=== PATIENT | male | born 1960 | race Caucasian/White ===

== ENCOUNTER 2020-05-23 23:21 | Inpatient (IN) | payer BC, OTHER, SELFPAY ==
--- OUTSIDE RECORDS SUMMARY | 2020-05-23 23:25 | XMS REPORT | Summary of Care ---
:1960 Author Organization [facility] Address [address] [place] [address] Care Team Providers Name Role Phone Te Joseph MD Primary Care Provider Reason for Visit Reason Comments LAB Encounter Details Date Type Department Care Team Description 04/14/2020 Relay Record Clerk Visit [facility] Delia Blackburn MD [address] [facility] [address] [place] [address] RUQ pain; Professional Office 2, Adc Lab Chronic kidney disease, unspecified CKD stage Building Phlebotomy Lab Professional Office Building [address] [place] [address] , [address] [place] [address] Allergies Active Allergy Reactions Severity Noted Date Comments Codeine Rash 10/13/2017 Diazepam Anxiety 03/14/2020 Penicillins Rash, Anaphylaxis High 10/13/2017 Sulfa (Sulfonamide Antibiotics) Rash 8 Sulfur Hives High 03/16/2020 documented as of this encounter (statuses as of 04/14/2020) Medications Medication Sig Dispensed Refills Start Date End Date Status gemfibrozil 600 mg Take 600 mg by 0 Active tablet mouth 2 (two) times daily before breakfast and dinner. pioglitazone 45 mg Take 45 mg by 0 Active tablet mouth daily. phentermine 37.5 mg Take 37.5 mg by 0 Active capsule mouth every morning. LEVOTHYROXINE SODIUM Take 225 mcg by 0 Active (SYNTHROID ORAL) mouth daily. traMADOL 50 mg tablet Take 50 mg by 0 Active mouth every 8 (eight) hours as needed for Pain (scale 1-3), Pain (scale 4-6) or Pain (scale 7-10). glyBURIDE 5 mg tablet Take 10 mg by 0 Active mouth daily with breakfast. aspirin 81 mg Take 81 mg by 0 Ac tive chewable tablet mouth daily. tamsulosin HCl Take 0.4 mg by 0 Active (TAMSULOSIN ORAL) mouth. montelukast 10 mg Take 10 mg by 0 Active tablet mouth. ergocalciferol, Take by mouth. 0 Active vitamin D2, (VITAMIN D ORAL) calcitrioL 0.25 mcg Take 0.25 mcg by 0 Active capsule mouth daily. SODIUM BICARBONATE Take by mouth. 0 Active ORAL nitroglycerin Take by mouth. 0 Active (NITRO-TIME ORAL) quinapril HCl Take by mouth. 0 Active (QUINAPRIL ORAL) Calcium Carbonate 260 Take 648 mg by 0 03/23/2020 Active mg calcium (648 mg) mouth 3 (three) Tab times daily. cholecalciferol, Take 1,000 Units 0 03/24/202004/23 Active vitamin D3, 25 mcg by mouth daily. (1,000 unit) tablet ergocalciferol, Take 50,000 Units 0 03/23/2020 Active vitamin d2, 1,250 mcg by mouth 2 (two) (50,000 unit) capsule times per week. atenoloL 25 mg tablet Take 25 mg by 0 Active mouth daily. documented as of this encounter (statuses as of 04/14/2020) Active Problems Problem Noted Date History of [place] (myocardial infarction) 10/14/2017 Type 2 diabetes mellitus without complication 10/15/19 18 HTN (hypertension) 10/14/2017 Chest pain 10/14/2017 Cellulitis of left leg 10/13/2017 Morbid obesity with body mass index of 50 or higher Cellulitis 10/13/2017 documented as of this encounter (statuses as of 04/14/2020) Social History Tobacco Use Types Packs/Day Years Used Date Former Smoker Smokeless Tobacco: Never Used Alcohol Use Drinks/Week oz/Week Comments Not Currently Sex Assigned at Date Recorded Not on file COVID-19 Exposure Response Date Recorded In the last month, have you been in contact with No / Unsure 04/14/2020 9:14 AM 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 documented as of this encounter Last Filed Vital Signs Not on filedocumented in this encounter Nursing Notes Sonal Mccloud - 04/14/2020 2:00 PM CST Venipuncture collection performed by clean technique on the right anticubitus. Total of 1 attempts were made. Slight pressure and a bandage/dressing were applied to the site(s). The patient experiencedno complications. The following specimens were processed according to instructions and sent to [facility] laboratories per lab order on 04/14/20: LT BLUE SST 1 RED LAV 1 PPT DK GREEN (LiHep) DK GREEN (SodH) HURD DK BLUE (K2) DK BLUE (S) ACD Blood Culture NIPT/NTD documented in this encounter Plan of Treatment Date Type Specialty Care Team Description 04/21/2020 Appointment Radiology Kandi Blackburn MD [address] [facility] [address] [place] [address] [phone] Health Maintenance Due Date Last Done Comments HEPATITIS C (HCV) SCREEN 1960 EYE EXAM 08/22/1969 URINE MICROALBUMIN 08/22/1969 FOOT EXAM 08/22/1977 DTaP,Tdap,and Td Vaccines (1 08/22/1978 - Tdap) COLON CANCER SCREENING 08/22/2009 ANNUAL FIT/FOBT COLON CANCER SCREENING FIT 08/22/2009 DNA EVERY 3 YEARS COLON CANCER SCREENING 08/22/2009 SIGMOIDOSCOPY EVERY 5 YEARS COLONOSCOPY 08/22/2009 Colorectal Cancer Screening 08/22/2009 Zoster Recombinant Vaccine 08/22/2009 (SHINGRIX) (1 of 2) LUNG CANCER SCREEN: 08/22/2014 Recommended for age 55-80 with 30 + pack year history HgA1C 04/15/2018 10/13/2017 LDL-C 10/14/2018 10/14/2017 CREATININE (SERUM) 10/17/2018 10/17/2017, 10/16/2017, 10/14/2017, Additional history exists INFLUENZA VACCINE (#1) 2020 Depression Screening 04/14/2021 04/14/2020 PNEUMOCOCCAL 0-64 YEARS Aged Out No longe r eligible COMBINED SERIES based on patient 's age to complete this topic documented as of this encounter Results Not on filedocumented in this encounter Visit Diagnoses Diagnosis RUQ pain Abdominal pain, right upper quadrant Chronic kidney disease, unspecified CKD stage documented in this encounter documented as of this encounter
--- OUTSIDE RECORDS SUMMARY | 2020-05-23 23:26 | XMS REPORT | Summary of Care ---
:1960 Author Organization [facility] Address [address] [place] [address] Care Team Providers Name Role Phone Te Joseph MD Primary Care Provider Reason for Visit Reason Comments Results Encounter Details Date Type Department Care Team Description 04/15/2020 Telephone [facility] Urology- Tomasa Araujo, STOCKROOM ATTENDANT Results [place] [address] [facility] [address] [place] [address] [place] [address] [phone] Allergies Active Allergy Reactions Severity Noted Date Comments Codeine Rash 10/13/2017 Diazepam Anxiety 03/14/2020 Penicillins Rash, Anaphylaxis High 10/13/2017 Sulfa (Sulfonamide Antibiotics) Rash 8 Sulfur Hives High 03/16/2020 documented as of this encounter (statuses as of 04/15/2020) Medications Medication Sig Dispensed Refills Start Date [...] as of this encounter (statuses as of 04/15/2020) Active Problems Problem Noted Date History of [place] (myocardial infarction) 10/14/2017 Type 2 diabetes mellitus without complication 10/15/19 18 HTN (hypertension) 10/14/2017 Chest pain 10/14/2017 Cellulitis of left leg 10/13/2017 Morbid obesity with body mass index of 50 or higher Cellulitis 10/13/2017 documented as of this encounter (statuses as of 04/15/2020) Social History Tobacco Use Types Packs/Day Years Used Date Former Smoker Smokeless Tobacco: Never Used Alcohol Use Drinks/Week oz/Week Comments Not Currently Sex Assigned at Date Recorded Not on file COVID-19 Exposure Response Date Recorded In the last month, have you been in contact with No / Unsure 04/14/2020 9:14 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 documented as of this encounter Last Filed Vital Signs Not on filedocumented in this encounter Miscellaneous Notes Telephone Encounter - Guillermina Araujo FNP - 04/15/2020 1:[address] Blackburn's call. Explained K is elevated at 5.9 and she is recommending him to call PCP or go to the ER for evaluation. He denies CP, weakness, palpitations. He said he will try tocontact Dr. Rodas. documented in this encounter Plan of Treatment Date Type Specialty Care Team Description 04/21/2020 Appointment Radiology Kandi Blackburn MD [address] [facility] [address] [place] [address] [phone] Health Maintenance Due Date Last Done Comments [...] history HgA1C 04/15/2018 10/13/2017 LDL-C 10/14/2018 10/14/2017 INFLUENZA VACCINE (#1) 2020 CREATININE (SERUM) 04/14/2021 04/14/2020, 10/17/2017, 10/16/2017, Additional history exists Depression Screening 04/14/2021 04/14/2020 PNEUMOCOCCAL 0-64 YEARS Aged Out No longe r eligible COMBINED SERIES based on patient 's age to complete this topic documented as of this encounter Results Not on filedocumented in this encounter Insurance Payer Benefit Plan / Group Subscriber ID Effective Dates Phone Address Type [employer] NETWORK [employer] GENERIC [id number] 2020-Present PPO documented as of this encounter
--- OUTSIDE RECORDS SUMMARY | 2020-05-23 23:26 | XMS REPORT | Summary of Care ---
:1960 Author Organization [facility] - [facility] Address [address] [place] [address] Care Team Providers Name Role Phone Te Joseph MD Primary Care Provider Reason for Visit Reason Comments Lab Results Encounter Details Date Type Department Care Team Description 04/15/2020 Telephone [facility] General Surgery- Kandi Shen MD Lab Results [address] [facility] [address] [place], [place] [address] [place] [address] [phone] Allergies Active Allergy Reactions Severity Noted Date [...] Active Problems Problem Noted Date History of [place] (myocardial infarction) 10/14/2017 Type 2 diabetes mellitus [...] with No / Unsure 04/14/2020 9:14 AM MOVE COORDINATOR someone who was confirmed or suspected to have Coronavirus / COVID-19? documented as of this encounter Last Filed Vital Signs Not on filedocumented in this encounter Miscellaneous Notes Telephone Encounter - Kandi Blackburn MD - 04/15/2020 1:36 PM CSTReviewed patient's labs, potassium is 5.9. Called patient to inform him of the results, left a voicemail for the patient to contact his PCP or go to the ED regarding hyperkalemia, and to call my officefor questions or concerns. documented in this encounter Plan of Treatment Date Type Specialty Care Team Description 04/21/2020 Appointment Radiology Kandi Blackburn MD 2[address] [facility] [address] [place] [address] [phone] Health Maintenance Due Date Last Done Comments [...] Phone Address Type [employer] NETWORK [employer] GENERIC [id number] 2020-Present PPO documented as of this encounter
--- OUTSIDE RECORDS SUMMARY | 2020-05-23 23:26 | XMS REPORT | Summary of Care ---
:1960 Author Organization [facility] - Health Address [address] [place] [address] Care Team Providers Name Role Phone Te Joseph MD Primary Care Provider Encounter Details Date Type Department Care Team Description 04/14/2020 Orders Only [facility] Doctor Unassigned, No [address] [facility] [place] [address] [address] [place] [address] Allergies Active Allergy Reactions Severity Noted Date [...] Active Problems Problem Noted Date History of [place] (myocardial infarction) 10/14/2017 Type 2 diabetes mellitus [...] with No / Unsure 04/14/2020 9:14 AM NURSING SERVICE DIRECTOR someone who was confirmed or suspected to have Coronavirus / COVID-19? documented as of this encounter Last Filed Vital Signs Not on filedocumented in this encounter Plan of Treatment Date Type Specialty Care Team Description 04/21/2020 Appointment Radiology Kandi Blackburn MD [address] [facility] [address] [place] [address] [phone] Health Maintenance Due Date Last Done Comments [...] this topic documented as of this encounter Procedures Procedure Name Priority Date/Time Associated Diagnosis Comme nts PATIENT QUESTIONNAIRE Routine 04/14/2020 12:01 AM NURSING SERVICE DIRECTOR documented in this encounter Results Not on filedocumented in this encounter Insurance Payer Benefit Plan / Group Subscriber ID Effective Dates Phone Address Type [employer] NETWORK [facility] GENERIC [id number] 2020-Present PPO documented as of this encounter
--- OUTSIDE RECORDS SUMMARY | 2020-05-23 23:26 | XMS REPORT | Summary of Care ---
:1960 Author Organization [facility] - [facility] Address [address] [place] [address] Care Team Providers Name Role Phone Te Joseph MD Primary Care Provider Reason for Visit Reason Comments Lab Results Encounter Details Date Type Department Care Team Description 04/15/2020 Telephone [facility] General Surgery- Kandi Shen MD Lab Results [address] [facility] [address] [place], [place] [address] [place] [phone] [phone] Allergies Active Allergy Reactions Severity Noted Date [...] Active Problems Problem Noted Date History of [place] (myocardial infarction) 10/14/2017 Type 2 diabetes mellitus [...] with No / Unsure 04/14/2020 9:14 AM ALARM ADJUSTER someone who was confirmed or suspected to have Coronavirus / COVID-19? documented as of this encounter Last Filed Vital Signs Not on filedocumented in this encounter Miscellaneous Notes Telephone Encounter - Tai Starr - 04/15/2020 3:04 PM CSTPatient returned call after Marisa explained results below. Patient states when he eats a lot of trial mix, he potassium goes up. Patient stated he ate a lot of trail mix over the weekend, maybe that's why its up. He states he is unable to get in touch with PCP. He is inquiring if he should wait until the end of the week to get labs again. Please return call. elephone Encounter - Kandi Blackburn MD - 04/15/2020 1:36 PM CSTReviewed patient's labs, potassium is 5.9. Called patient to inform him of the results, left a voicemail for the patient to contact his PCP or go to the ED regarding hyperkalemia, and to call my officefor questions or concerns. M ADJUSTER documented in this encounter Plan of Treatment Date Type Specialty Care Team Description 04/21/2020 Appointment Radiology Kandi Blackburn MD 2[address] [facility] [address] [place] [address] [phone] Health Maintenance Due Date Last Done Comments [...] Subscriber ID Effective Dates Phone Address Type [facility] GENERIC [id number] 2020-Present PPO documented as of this encounter
--- OUTSIDE RECORDS SUMMARY | 2020-05-23 23:27 | XMS REPORT | Summary of Care ---
:1960 Author Organization [facility] Address [address] [place] [address] Care Team Providers Name Role Phone Te Joseph MD Primary Care Provider Reason for Visit Reason Comments Results Encounter Details Date Type Department Care Team Description 04/15/2020 Telephone [facility] Urology- Tomasa Araujo, PHARMACY ASSISTANT Results [place] [address] 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 documented as of this encounter Last Filed Vital Signs Not on filedocumented in this encounter Miscellaneous Notes Telephone Encounter - Guillermina Araujo FNP - 04/15/2020 3:11 PM CSTReturned patient's call - per Dr. Blackburn - potassium is elevated due to CKD and is recommending hebe seen by Dr. Joseph or go to the ER. Explained elevated potassium can cause SD, irregular heartbeat, CP, weakness, fatigue. Told him creatinine is also elevated and that is what's causing elevated potassium. He states "his kidneys have been like this for 31 yrs. When I was in the hospital, my potassium was elevated because I ate a lot of trail mix and it came back down." His is not home and when she gets home he will discuss these recommendations with her and decide what to do. documented in this encounter Plan of Treatment Date Type Specialty Care Team Description 04/21/2020 Appointment Radiology Kandi Blackburn MD [address] [facility] [address] [place] [address] [phone] Health Maintenance Due Date Last Done Comments [...] Phone Address Type [employer] NETWORK [facility] GENERIC [id number] 2020-Present PPO documented as of this encounter
--- OUTSIDE RECORDS SUMMARY | 2020-05-23 23:28 | XMS REPORT | Summary of Care ---
:1960 Author Organization [facility] Address [address] [place] [address] Care Team Providers Name Role Phone Te Joseph MD Primary Care Provider Reason for Visit Reason Comments Forms Encounter Details Date Type Department Care Team Description 05/07/2020 Telephone [facility] General Ariadne Reyez MD Forms Surgery- [address] [place] [address] 6745 [facility] [phone] [place] [phone] Allergies Active Allergy Reactions Severity Noted Date Comments Codeine Rash 10/13/2017 Diazepam Anxiety 03/14/2020 Penicillins Rash, Anaphylaxis High 10/13/2017 Sulfa (Sulfonamide Antibiotics) Rash 8 Sulfur Hives High 03/16/2020 documented as of this encounter (statuses as of 05/08/2020) Medications Medication Sig Dispensed Refills Start Date End Date Status gemfibrozil 600 mg tablet Take 600 mg by 0 Active mouth 2 (two) times daily before breakfast and dinner. pioglitazone 45 mg tablet Take 45 mg by 0 Active mouth daily. phentermine 37.5 mg Take 37.5 [...] mouth daily with breakfast. aspirin 81 mg chewable Take 81 mg by 0 Active tablet mouth daily. tamsulosin HCl Take 0.4 mg by 0 Active (TAMSULOSIN ORAL) mouth. montelukast 10 mg tablet Take 10 mg by 0 Active mouth. ergocalciferol, vitamin Take by mouth. 0 Active D2, (VITAMIN D ORAL) calcitrioL 0.25 mcg Take 0.25 mcg 0 Active capsule by mouth daily. SODIUM BICARBONATE ORAL Take by mouth. 0 Active nitroglycerin (NITRO-TIME Take by mouth. 0 Active ORAL) quinapril HCl (QUINAPRIL Take by mouth. 0 Active ORAL) Calcium Carbonate 260 mg Take 648 mg by 0 03/23/2020 Active calcium (648 mg) Tab mouth 3 (three) times daily. ergocalciferol, vitamin Take 50,000 0 03/23/2020 Active d2, 1,250 mcg (50,000 Units by mouth unit) capsule 2 (two) times per week. atenoloL 25 mg tablet Take 25 mg by 0 Active mouth daily. cholecalciferol, vitamin Take 1,000 0 03/24/2020 Active D3, 25 mcg (1,000 unit) Units by mouth. tablet hydrOXYchloroQUINE 200 mg 0 05/01/2020 Active tablet documented as of this encounter (statuses as of 05/08/2020) Active Problems Problem Noted Date Symptomatic cholelithiasis 05/06/2020 Overview: Added automatically from request for meggan laurent [id number] History of LA (myocardial infarction) 10/14/2017 Type 2 diabetes mellitus without complication 10/15/19 18 HTN (hypertension) 10/14/2017 Chest pain 10/14/2017 Cellulitis of left leg 10/13/2017 Morbid obesity with body mass index of 50 or higher Cellulitis 10/13/2017 documented as of this encounter (statuses as of 05/08/2020) Social History Tobacco Use Types Packs/Day Years Used Date Former Smoker Smokeless Tobacco: Never Used Alcohol Use Drinks/Week oz/Week Comments Not Currently Sex Assigned at Date Recorded Not on file COVID-19 Exposure Response Date Recorded In the last month, have you been in contact with No / Unsure 05/06/2020 2:07 PM 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 documented as of this encounter Last Filed Vital Signs Not on filedocumented in this encounter Miscellaneous Notes Telephone Encounter - Mimi Alberto RN - 05/08/2020 11:00 AM CSTCardiac clearance has been received and uploaded to [employer]. Encounter routed to provider. elephone Encounter - Mirlande Carr - 05/07/2020 1:28 PM CSTRecvd via fax cardiac clearance for surgery form from Dr. Jackie Rodas/placed in General Surgery nurse box at front . C documented in this encounter Plan of Treatment Date Type Specialty Care Team Description 05/15/2020 Hospital Ambulatory Yue Reyez MD Symptomatic Encounter Surgical [address] [place] [address]. [place] [address] Health Maintenance Due Date Last Done Comments HEPATITIS C (HCV) SCREEN 1960 PNEUMOCOCCAL 0-64 YEARS COMBINED 08/22/1965 SERIES (1 of 3 - PCV13) EYE EXAM 08/22/1969 URINE MICROALBUMIN 08/22/1969 FOOT EXAM 08/22/1977 DTaP,Tdap,and Td Vaccines (1 - 08/22/1978 Tdap) COLON CANCER SCREENING ANNUAL 08/22/2009 FIT/FOBT COLON CANCER SCREENING FIT DNA 08/22/2009 EVERY 3 YEARS COLON CANCER SCREENING 08/22/2009 SIGMOIDOSCOPY EVERY 5 YEARS COLONOSCOPY 08/22/2009 Colorectal Cancer Screening 08/22/2009 Zoster Recombinant Vaccine 08/22/2009 (SHINGRIX) (1 of 2) LUNG CANCER SCREEN: Recommended 08/22/2014 for age 55-80 with 30 + pack year history HgA1C 04/15/2018 10/13/2017 INFLUENZA VACCINE (#1) 2020 Depression Screening 04/14/2021 04/14/2020 CREATININE (SERUM) 04/17/2021 04/17/2020, 04/14/2020, 10/17/2017, Additional history exists LDL-C 04/17/2021 04/17/2020, 10/14/2017 documented as of this encounter Results Not on filedocumented in this encounter Insurance Payer Benefit Plan / Group Subscriber ID Effective Dates Phone Address Type [facility] NETWORK [facility] GENERIC [id number] 2020-Present PPO documented as of this encounter
--- OUTSIDE RECORDS SUMMARY | 2020-05-23 23:28 | XMS REPORT | Summary of Care ---
:1960 Author Organization [facility] - [facility] Address [address] [place] [id number] Care Team Providers Name Role Phone Te Joseph MD Primary Care Provider Reason for Referral (Routine) Status Reason Specialty Diagnoses / Referred By Referred To Contact Procedures Contact New Request Diagnoses RUQ pain Morbid obesity with BMI of 50.0-59.9, adult Kandi Blackburn Samreen, S arah, MD Procedures CONSULT/REFERRAL GENERAL SURGERY [address] [place] [address] 2.100 [id number] [place], [place] Phone: [phone] (Routine) Status Reason Specialty Diagnoses / Referred By Referred To Procedures Contact Contact Canceled Location Nephrology Diagnoses Chronic kidney disease, unspecified CKD stage Martínez Blackburn Fabio Preference Procedures CONSULT/REFERRAL NEPHROLOGY MD Kandi G, DO [address] [place] [address] 2.100 [facility] [phone] Phone: Fax: Radiology Services (Routine) Status Reason Specialty Diagnoses / Referred By Referred To Procedures Contact Contact New Request Diagnostic Diagnoses RUQ pain Chronic kidney disease, unspecified CKD stage Alexey, Radiology Procedures US ABDOMEN LIMITED MD Kandi [address] [place] [address] 2.100 [place] [phone] Reason for Visit Reason Comments GALLSTONES Encounter Details Date Type Department Care Team Description 04/14/2020 Office Visit [facility] Health General Kandi Blackburn RUQ pain (Primary Dx); Surgery- Faith PHELAN Morbid obesity with BMI of 50.0-59.9, ad ult; [address] [place] [address] Driv e [address] [facility] Chronic kidney disease, unsp ecified CKD stage; [address] [facility] Coronary artery disease involving port lions coronary artery, angina presence unspecified, unspecified whether port lions or transplanted heart; MATHEW Cuevas Devin 2.100 History of stroke [id number] [place], [place] [phone] [address] [phone] Allergies Active Allergy Reactions Severity Noted Date Comments Codeine Rash 10/13/2017 Diazepam Anxiety 03/14/2020 Penicillins Rash, Anaphylaxis High 10/13/2017 Sulfa (Sulfonamide Antibiotics) Rash 8 Sulfur Hives High 03/16/2020 documented as of this encounter (statuses as of 04/17/2020) Medications Medication Sig Dispensed Refills Start Date End Date Status gemfibrozil 600 mg Take 600 mg by 0 Active tablet mouth 2 (two) times daily before breakfast and dinner. pioglitazone 45 mg Take 45 mg by 0 Active tablet mouth daily. phentermine 37.5 Take 37.5 mg 0 Active mg capsule by mouth every morning. LEVOTHYROXINE Take 225 mcg 0 Act oscar SODIUM (SYNTHROID by mouth ORAL) daily. traMADOL 50 mg Take 50 mg by 0 A ctive tablet mouth every 8 (eight) hours as needed for Pain (scale 1-3), Pain (scale 4-6) or Pain (scale 7-10). glyBURIDE 5 mg Take 10 mg by 0 A ctive tablet mouth daily with breakfast. aspirin 81 mg Take 81 mg by 0 Ac tive chewable tablet mouth daily. tamsulosin HCl Take 0.4 mg by 0 Active (TAMSULOSIN ORAL) mouth. montelukast 10 mg Take 10 mg by 0 Active tablet mouth. ergocalciferol, Take by 0 Acti ve vitamin D2, mouth. (VITAMIN D ORAL) calcitrioL 0.25 Take 0.25 mcg 0 Active mcg capsule by mouth daily. SODIUM BICARBONATE Take by 0 A ctive ORAL mouth. nitroglycerin Take by 0 Active (NITRO-TIME ORAL) mouth. quinapril HCl Take by 0 Active (QUINAPRIL ORAL) mouth. Calcium Carbonate Take 648 mg by 0 03/23/2020 Active 260 mg calcium mouth 3 (648 mg) Tab (three) times daily. cholecalciferol, Take 1,000 0 03/24/2020 A ctive vitamin D3, 25 mcg Units by mouth 0 (1,000 unit) daily. tablet ergocalciferol, Take 50,000 0 03/23/2020 A ctive vitamin d2, 1,250 Units by mouth mcg (50,000 unit) 2 (two) times capsule per week. atenoloL 25 mg Take 25 mg by 0 A ctive tablet mouth daily. metFORMIN 1,000 mg Take 1,000 mg 0 02 Discontinued tablet by mouth 2 0 (Disconti nued by (two) times another daily with clinician ) meals. atenolol 50 mg Take 50 mg by 0 D iscontinued tablet mouth daily. 0 (Dose adjustment ) liothyronine 25 Take 25 mcg by 0 Discontinued mcg tablet mouth daily. 0 (Alter milton therapy) ergocalciferol, Take 50,000 0 03/24/2020 D iscontinued vitamin d2, 1,250 Units by mouth 0 (Duplicate) mcg (50,000 unit) 2 (two) times capsule daily. aspirin 81 mg EC Take 81 mg by 0 Discontinued tablet mouth daily. 0 (Duplic ate) calcitrioL 0.25 Take 0.25 mcg 0 03/24/2020 Discontinued mcg capsule by mouth 0 (Duplica te) daily. gemfibroziL 600 mg Take 600 mg by 0 Discontinued tablet mouth 2 (two) 0 (Dupli juan miguel) times daily. glyBURIDE 5 mg Take 10 mg by 0 D iscontinued tablet mouth 2 (two) 0 (Dupli juan miguel) times daily. levothyroxine 200 Take 225 mcg 0 Discontinued mcg tablet by mouth every 0 (Dup licate) morning. documented as of this encounter (statuses as of 04/17/2020) Active Problems Problem Noted Date History of IN (myocardial infarction) 10/14/2017 Type 2 diabetes mellitus without complication 10/15/19 18 HTN (hypertension) 10/14/2017 Chest pain 10/14/2017 Cellulitis of left leg 10/13/2017 Morbid obesity with body mass index of 50 or higher Cellulitis 10/13/2017 documented as of this encounter (statuses as of 04/17/2020) Social History Tobacco Use Types Packs/Day Years Used Date Former Smoker Smokeless Tobacco: Never Used Alcohol Use Drinks/Week oz/Week Comments Not Currently Sex Assigned at Date Recorded Not on file COVID-19 Exposure Response Date Recorded In the last month, have you been in contact with No / Unsure 04/17/2020 10:16 AM TRANSPLANTER someone who was confirmed or suspected to have Coronavirus / COVID-19? documented as of this encounter Last Filed Vital Signs Vital Sign Reading Time Taken Comments Blood Pressure 118/66 04/14/2020 9:15 AM TRANSPLANTER Pulse 83 04/14/2020 9:15 AM TRANSPLANTER Temperature 36.1 C (97 F) 04/14/2020 9:15 AM TRANSPLANTER Respiratory Rate 18 04/14/2020 9:15 AM TRANSPLANTER Oxygen Saturation - - Inhaled Oxygen Concentration - - Weight 174.4 kg (384 lb 6.4 oz) 04/14/2020 9:15 AM TRANSPLANTER Height 177.8 cm (5' 10") 04/14/2020 9:15 AM TRANSPLANTER Body Mass Index 55.16 04/14/2020 9:15 AM TRANSPLANTER documented in this encounter Progress Notes Kandi Blackburn MD - 04/14/2020 9:15 AM CST GENERAL SURGERY CLINIC NOTE Reason for Visit / Chief Complaint: Right upper quadrant pain History of Present Illness: Tyson Addison is a 59 year old male with PMHx as below who presents for evaluation of right upper quadrant pain. 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 He stated he was hospitalized forliver failure, kidney failure, hypoglycemia, dehydration, and diverticulitis. During his work up imaging demonstrated cholelithiasis. He presents today to discuss surgery for cholelithiasis. He reportsright upper quadrant pain which radiates to his right shoulder. The pain can occur before or after eating and is frequently associated with nausea. His symptoms are worse when eating "grease or spice",so he has been adhering to a bland diet. He reports occasional SOB and chest pain. He uses a walker. He had had 2 IN's and a stroke. He has not had cardiology follow up in years. He also has underlying CKD but has not seen a programmer operator numerical control. Past Medical History: Past Medical History: Diagnosis Date Arthritis Asthma Cataracts, bilateral CKD (chronic kidney disease) Diverticulitis 2020 Hypertension Hypothyroidism IN (myocardial infarction) 2001 X2 Migraine Stroke 2009 Type 2 diabetes mellitus Past Surgical History: Past Surgical History: Procedure Laterality Date APPENDECTOMY Bilateral Open INCISION AND DRAINAGE Neck, both arms Allergies: Allergies Allergen Reactions Penicillins Rash and Anaphylaxis Sulfur Hives Codeine Rash Diazepam Anxiety Sulfa (Sulfonamide Antibiotics) Rash Medications: Patient's Medications START taking these medications No medications on file CONTINUE taking these medications which have NOT CHANGED ASPIRIN 81 MG CHEWABLE TABLET Take 81 mg by mouth daily. ATENOLOL 25 MG TABLET Take 25 mg by mouth daily. CALCITRIOL 0.25 MCG CAPSULE Take 0.25 mcg by mouth daily. CALCIUM CARBONATE 260 MG CALCIUM (648 MG) TAB Take 648 mg by mouth 3 (three) times daily. CHOLECALCIFEROL, VITAMIN D3, 25 MCG (1,000 UNIT) TABLET Take 1,000 Units by mouth daily. ERGOCALCIFEROL, VITAMIN D2, (VITAMIN D ORAL) Take by mouth. ERGOCALCIFEROL, VITAMIN D2, 1,250 MCG (50,000 UNIT) CAPSULE Take 50,000 Units by mouth 2 (two) times per week. GEMFIBROZIL 600 MG TABLET Take 600 mg by mouth 2 (two) times daily before breakfast and dinner. GLYBURIDE 5 MG TABLET Take 10 mg by mouth daily with breakfast. LEVOTHYROXINE SODIUM (SYNTHROID ORAL) Take 225 mcg by mouth daily. MONTELUKAST 10 MG TABLET Take 10 mg by mouth. NITROGLYCERIN (NITRO-TIME ORAL) Take by mouth. PHENTERMINE 37.5 MG CAPSULE Take 37.5 mg by mouth every morning. PIOGLITAZONE 45 MG TABLET Take 45 mg by mouth daily. QUINAPRIL HCL (QUINAPRIL ORAL) Take by mouth. SODIUM BICARBONATE ORAL Take by mouth. TAMSULOSIN HCL (TAMSULOSIN ORAL) Take 0.4 mg by mouth. TRAMADOL 50 MG TABLET Take 50 mg by mouth every 8 (eight) hours as needed for Pain (scale 1-3), Pain (scale 4-6) or Pain (scale 7-10). START taking Modified Medications as Prescribed No medications on file STOP taking these medications ASPIRIN 81 MG EC TABLET Take 81 mg by mouth daily. ATENOLOL 50 MG TABLET Take 50 mg by mouth daily. CALCITRIOL 0.25 MCG CAPSULE Take 0.25 mcg by mouth daily. ERGOCALCIFEROL, VITAMIN D2, 1,250 MCG (50,000 UNIT) CAPSULE Take 50,000 Units by mouth 2 (two) times daily. GEMFIBROZIL 600 MG TABLET Take 600 mg by mouth 2 (two) times daily. GLYBURIDE 5 MG TABLET Take 10 mg by mouth 2 (two) times daily. LEVOTHYROXINE 200 MCG TABLET Take 225 mcg by mouth every morning. LIOTHYRONINE 25 MCG TABLET Take 25 mcg by mouth daily. METFORMIN 1,000 MG TABLET Take 1,000 mg by mouth 2 (two) times daily with meals. Current Outpatient Medications Medication Sig Dispense Refill calcitrioL 0.25 mcg capsule Take 0.25 mcg by mouth daily. Calcium Carbonate 260 mg calcium (648 mg) Tab Take 648 mg by mouth 3 (three) times daily. cholecalciferol, vitamin D3, 25 mcg (1,000 unit) tablet Take 1,000 Units by mouth daily. ergocalciferol, vitamin D2, (VITAMIN D ORAL) Take by mouth. montelukast 10 mg tablet Take 10 mg by mouth. quinapril HCl (QUINAPRIL ORAL) Take by mouth. SODIUM BICARBONATE ORAL Take by mouth. tamsulosin HCl (TAMSULOSIN ORAL) Take 0.4 mg by mouth. aspirin 81 mg chewable tablet Take 81 mg by mouth daily. gemfibrozil 600 mg tablet Take 600 mg by mouth 2 (two) times daily before breakfast and dinner. glyBURIDE 5 mg tablet Take 10 mg by mouth daily with breakfast. LEVOTHYROXINE SODIUM (SYNTHROID ORAL) Take 225 mcg by mouth daily. pioglitazone 45 mg tablet Take 45 mg by mouth daily. traMADOL 50 mg tablet Take 50 mg by mouth every 8 (eight) hours as needed for Pain (scale 1-3), Pain (scale 4-6) or Pain (scale 7-10). atenoloL 25 mg tablet Take 25 mg by mouth daily. ergocalciferol, vitamin d2, 1,250 mcg (50,000 unit) capsule Take 50,000 Units by mouth 2 (two) times per week. nitroglycerin (NITRO-TIME ORAL) Take by mouth. phentermine 37.5 mg capsule Take 37.5 mg by mouth every morning. No current facility-administered medications for this visit. Family History: Family History Problem Relation Age of Onset Prostate Cancer Father Social History: Social History Socioeconomic History Marital status: Spouse name: Not on file Number of children: Not on file Years of education: Not on file Highest education level: Not on file Occupational History Not on file Social Needs Financial resource strain: Not on file Food insecurity Worry: Not on file Inability: Not on file Transportation needs Medical: Not on file Non-medical: Not on file Tobacco Use Smoking status: Former Smoker Smokeless tobacco: Never Used Substance and Sexual Activity Alcohol use: Not Currently Drug use: Not on file Sexual activity: Not on file Lifestyle Physical activity Days per week: Not on file Minutes per session: Not on file Stress: Not on file Relationships Social connections Talks on phone: Not on file Gets together: Not on file Attends orthodoxy service: Not on file Active member of club or organization: Not on file Attends meetings of clubs or organizations: Not on file Relationship status: Not on file Intimate partner violence Fear of current or ex partner: Not on file Emotionally abused: Not on file Physically abused: Not on file Forced sexual activity: Not on file Other Topics Concern Not on file Social History Narrative Not on file Review of Systems: A 14 point ROS was obtained, only positive responses are in BOLD Constitutional: Fever, chills, loss of appetite, fatigue, unexplained weight loss, unexplained weight gain, weakness Head/Ears/Nose/Mouth/Throat: Head: Headache, head injury, neck pain, neck stiffness Ears: Ear discharge, hearing loss, ear pain, tinnitus Nose: Nose bleeds, sinus congestion, runny nose, postnasal drip, sneezing, sinus pressure Mouth: Dental problems, mouth sores, sore tongue, dry mouth Throat: Sore throat, trouble swallowing, voice change Eyes: Discharge, itching, pain, redness, pain, vision disturbance, blurred vision, vision loss, cataracts, glaucoma CV: Chest pain, palpitations, arrhythmias, dyspnea on exertion, othopnea, claudication, edema, coronary artery disease/history of IN Respiratory: Cough, sputum production, hemoptysis, wheezing, shortness of breath, sleep apnea GI: Dysphagia, abdominal pain, abdominal distention, indigestion, nausea, vomiting, diarrhea, constipation, hematemesis, blood in stool or dark stool, rectal bleeding, rectal pain, jaundice : Frequency, urgency, pain or burning with urination, flank pain, hematuria, incontinence, change in urinary stream, discharge, bleeding, pelvic pain, irregular menses Musculoskeletal: Muscle pain, joint pain, joint swelling, back pain, stiffness, weakness, limitationof motion, arthritis, trauma Integumentary/Breast: Integumentary: Rash, itching, pigmented lesions, lumps, tenderness, swelling, wound Breast: Pain, lumps, nipple discharge, skin changes Neurological: Weakness, sensory changes, syncope, seizures, headache, numbness, tingling, tremor, trauma Hematologic/Lymphatic: Hematologic: Bleeding tendency, easy bruising, history of blood clots, anticoagulation/antiplatelet therapy Lymphatic: Lymphadenopathy Endocrine: Polyuria, polydipsia, polyphagia, heat or cold intolerance, hair loss, appetite changes Allergic/Immunologic: Allergic: Allergic reactions Immunologic: Recurrent infections Psychiatric: Agitation, confusion, decreased concentration, hallucinations, anxiety, self-injury, sleep disturbance, suicidal ideation Physical Exam: BP 118/66 (BP Location: Left arm, Patient Position: Sitting, BP CUFF SIZE: Adult Medium) | Pulse 83 | Temp 36.1 C (97 F) (Temporal Artery) | Resp 18 | Ht 1.778 m (5' 10") | Wt 174.4 kg (384 lb6.4 oz) | BMI 55.16 kg/m Constitutional: Awake, alert, oriented, in no acute distress Head: Normocephalic, atraumatic Eyes: Extraocular movements grossly intact, pupils equal and reactive to light and accomodation, anicteric sclerae Ears: Normal external exam Nose: Normal external exam Mouth: Moist mucous membranes Neck: Supple, no jugular venous distention Cardiovascular: Regular rate and rhythm without murmurs Respiratory: No respiratory distress GI: Obese, soft, nontender, non-distended Extremities: Trace BLE edema Musculoskeletal: Normal tone and strength, normal range of motion Neurologic: CN II through XII grossly intact, no focal deficits Skin: Warm and dry, capillary refill <2 seconds, no jaundice, rashes, lesions, or erythema Psychiatric: Appropriate mood and affect, no obvious deficits of insight or judgment Assessment: Tyson Addison is a 59 year old male who presents with RUQ pain and possible diagnosis of cholelithiasis from [facility] hospital. He also is MO with BMI 55.16, has had a stroke and IN X2, and CKD. He has not seen his early breastfeeding care specialist or a renal specialist. Plan: 1. CBC, CMP 2. RUQ U/S 3. Refer to Dr. Soliz for evaluation of CKD 4. Refer to Dr. Rodas for cardiac evaluation 5. Refer to Dr. Reyez for cholecystectomy and possible weight reduction surgery for this MO patient Kandi Blackburn M.D. 04/14/2020 10:16 oLaura carrizales - 04/14/2020 9:[address] [facility] General Surgery Clinic Note Chief Complaint: "Gallbladder full of stones" HPI: Tyson Addison is a 59 year old male with PMH of previous IN (2001 x2), HTN, T2DM, and most recently being found unconscious in his truck in [place] for ~18 hours. Diagnosis included kidney and liver failure, diverticulitis, hypoglycemia (Blood Glucose 30), electrolyte abnormalities (hyperkalemia, hypocalcemia, hypomagnesemia). The hospital work up also found evidence of cholelithiasis. The patient's stated he was told ~7 years ago that he needed to have cholecystectomy. Symptoms associated include RUQ pain, nausea/vomiting, loose acholic stool, steatorrhea. The patient stated eating a blander diet without spicy or greasy food. The patient's stated he was told he has Stage 3 kidney disease and a hiatal hernia as well. The patient stated his last colonoscopy was in 1989 and revealed blockage but no other abnormalities. REVIEW OF SYSTEMS (-)=Negative,(+)=Positive Constitutional: negative Skin: negative HEENT: negative Cardio: negative Resp:negative GI: see HPI : negative JAQUELIN: joint pain Neuro: negative Psych: negative Hem/Lymphatic: negative Past Medical History: No past medical history on file. Past Surgical History: No past surgical history on file. Family History: No family history on file. Social History: Social History Socioeconomic History Marital status: Spouse name: Not on file Number of children: Not on file Years of education: Not on file Highest education level: Not on file Occupational History Not on file Social Needs Financial resource strain: Not on file Food insecurity Worry: Not on file Inability: Not on file Transportation needs Medical: Not on file Non-medical: Not on file Tobacco Use Smoking status: Never Smoker Smokeless tobacco: Never Used Substance and Sexual Activity Alcohol use: Not on file Drug use: Not on file Sexual activity: Not on file Lifestyle Physical activity Days per week: Not on file Minutes per session: Not on file Stress: Not on file Relationships Social connections Talks on phone: Not on file Gets together: Not on file Attends orthodoxy service: Not on file Active member of club or organization: Not on file Attends meetings of clubs or organizations: Not on file Relationship status: Not on file Intimate partner violence Fear of current or ex partner: Not on file Emotionally abused: Not on file Physically abused: Not on file Forced sexual activity: Not on file Other Topics Concern Not on file Social History Narrative Not on file Medications: Current Outpatient Medications Medication Sig Dispense Refill aspirin 81 mg chewable tablet Take 81 mg by mouth daily. atenolol 50 mg tablet Take 50 mg by mouth daily. gemfibrozil 600 mg tablet Take 600 mg by mouth 2 (two) times daily before breakfast and dinner. glyBURIDE 5 mg tablet Take 10 mg by mouth daily with breakfast. LEVOTHYROXINE SODIUM (SYNTHROID ORAL) Take 225 mcg by mouth daily. metFORMIN 1,000 mg tablet Take 1,000 mg by mouth 2 (two) times daily with meals. phentermine 37.5 mg capsule Take 37.5 mg by mouth every morning. pioglitazone 45 mg tablet Take 45 mg by mouth daily. traMADOL 50 mg tablet Take 50 mg by mouth every 8 (eight) hours as needed for Pain (scale 1-3), Pain (scale 4-6) or Pain (scale 7-10). No current facility-administered medications for this visit. Allergy: Allergies Allergen Reactions Codeine Rash Pcn [Penicillins] Rash Sulfa (Sulfonamide Antibiotics) Rash Valium - activating, not sedating Physical Exam: Temp: [36.1 C (97 F)] Pulse: [83] Resp: [18] BP: (118)/(66) Constitutional: Well developed, no acute distress General: A & O x 3 to person, place and situation HEENT: no scleral icterus, moist mucous membranes Respiratory: clear to auscultation bilaterally Cardio: regular rate and rhythm Abdomen: soft, rotund abdomen, ND, pain in RUQ, scar in RLQ c/w open appendectomy Extremities: No edema. Skin: areas of hypopigmentation B/L arms Labs: No recent lab testing Microbiology: No recent lab testing Radiology: No results found. Pathology: No recent testing. Hospital Problem list: Patient Active Problem List Diagnosis Date Noted History of IN (myocardial infarction) 10/14/2017 Type 2 diabetes mellitus without complication 10/14/2017 HTN (hypertension) 10/14/2017 Chest pain 10/14/2017 Cellulitis of left leg 10/13/2017 Morbid obesity with body mass index of 50 or higher 10/13/2017 Cellulitis 10/13/2017 Assessment & Plan: Tyson Addison is a 59 year old male with PMH of IN (2001, no intervention), T2DM, HTN, kidney disease presenting with RUQ pain, nausea/vomiting, acholic stools and steatorrhea, concerning for cholelithiasis and/or pancreatitis. 1. Ordered ultrasound imaging to confirm diagnosis. 2. Ordered lab studies (CBC, CMP, alk phos, liver enzymes, T bili) to confirm diagnosis. 3. Asked patient to follow up with his early breastfeeding care specialist, Dr. Rodas, for cardiac work-up prior to surgery. 4. Referred patient to programmer operator numerical control. 5. Encouraged patient to follow up with his PCP, Dr. Joseph, to facilitate communication after hospitalization in [place]. 6. Referred patient to Dr. eRyez for cholecystectomy with bariatric capabilities, due to patient'ssize. 7. Educated patient to follow a low-fat, bland diet in the interim. Patient seen and discussed with faculty, Dr. Blackburn. Laura Brenner, [id number] signed by Kandi Blackburn MD at 04/17/2020 2:39 PM Claudia Mora - 04/14/2020 9:15 AM Gonzalez Addison is a 59 year old male comes to clinic independent in ambulation for new patient gallbladder. Pt comes alone . Pt in NAD w/ pain reported 0/10. Pt preferred language is Tajik. Pt. denies fall in last 12 months. Allergies and medications reviewed and updated. [id number] - [place], [place] - [address] [facility] [employer] Claudia Sandhu 04/14/2020 9:17 AM documented in this encounter Plan of Treatment Date Type Specialty Care Team Description 04/21/2020 Appointment Radiology Kandi Blackburn MD [address] [facility] 2.100 [place] [address] [phone] 05/06/2020 Office Visit Surgery Yue Reyez MD [address] [place] [address] [phone] Name Type Priority Associated Diagnoses Order S chedule US ABDOMEN LIMITED IMAGING Routine RUQ pain Expected: 04/14/2020, Chronic kidney disease, Expi res: 04/14/2021 unspecified CKD stage Health Maintenance Due Date Last Done Comments [...] topic documented as of this encounter Results COMP. METABOLIC PANEL (11843) (04/14/2020 2:02 PM TRANSPLANTER) NA 141 135 - 145 [facility] mmol/L [facility] K 5.9 (H) 3.5 - 5.0 [facility] mmol/L [facility] CL 110 (H) 98 - 108 mmol/L [facility] CO2 TOTAL 20 (L) 23 - 31 mmol/L [facility] AGAP 11 2 - 16 [facility] BUN 38 (H) 7 - 23 mg/dL [facility] GLUCOSE 92 70 - 110 mg/dL [facility] CREATININE 1.79 (H) 0.60 - 1.25 [facility] mg/dL [facility] TOTAL BILI 0.5 0.1 - 1.1 mg/dL [facility] CALCIUM 8.1 (L) 8.6 - 10.6 [facility] mg/dL [facility] T PROTEIN 6.5 6.3 - 8.2 g/dL [facility] ALBUMIN 3.6 3.5 - 5.0 g/dL [facility] ALK PHOS 146 (H) 34 - 122 U/L [facility] ALTv 10 5 - 50 U/L [facility] LABORATORY AST(SGOT) 19 13 - 40 U/L [facility] LABORATORY eGFR Calculation 38.9 mL/min/1.73m2 [facility] [place] eGFR Calculation 47.2 mL/min/1.73m2 [facility] ([facility]) [facility] LABOR[facility] Specimen Blood Narrative Performed At Association of Glomerular Filtration Rate (GFR) [facility] and Staging of Kidney Disease* + + +- + | GFR (mL/min/1.73 m2) | With Kidney Damage | Without Kidney Damage + + +- + | >90 | Stage one | Normal + + +- + | 60-89 | Stage two | Decreased GFR + + +- + | 30-59 | Stage three | Stage three + + +- + | 15-29 | Stage four | Stage four + + +- + | <15 (or dialysis) | Stage five | Stage five + + +- + *Each stage assumes the associated GFR level has been in effect for at least three months. Stages 1 to 5, with or without kidney disease, indicate chronic kidney disease. Notes: Determination of stages one and two (with eGFR >59mL/min/1.73 m2) requires estimation of kidney damage for at least three months as defined by structural or functional abnormalities of the kidney, manifested by either: Pathological abnormalities or Markers of kidney damage (including abnormalities in the composition of the blood or urine or abnormalities in imaging tests). Performing Organization Address City/State/Zipcode Phone Number [facility] CLIA: [id number] [place] [address] CBC WITH DIFF (04/14/2020 2:02 PM TRANSPLANTER) Pathologist Sig nature WBC 6.94 4.20 - 10.70 [facility] 10*3/L [facility] LAB[facility] RBC 3.28 (L) 4.26 - 5.52 [facility] 10*6/L [facility] LABORATORY HGB 9.3 (L) 12.2 - 16.4 [facility] g/dL [facility] LAB[facility] HCT 32.1 (L) 38.4 - 49.3 % [facility] MCV 97.9 (H) 81.7 - 95.6 fL [facility] MCH 28.4 26.1 - 32.7 pg [facility] MCHC 29.0 (L) 31.2 - 35.0 [facility] g/dL [facility] LAB[facility] RDW-SD 54.9 (H) 38.5 - 51.6 fL [facility] RDW-CV 15.3 12.1 - 15.4 % [facility]ORY PLT 198 150 - 328 [facility] 10*3/L [facility] MPV 11.3 9.8 - 13.0 fL [facility] NRBC/100 WBC 0.0 0.0 - 10.0 /100 [facility] WBCs [facility] NRBC x10^3 <0.01 10*3/L [facility] GRAN MAT (NEUT) % 63.1 % [facility] IMM GRAN % 0.40 % [facility] LYMPH % 16.6 % [facility] MONO % 6.5 % [facility] EOS % 12.5 % [facility] BASO % 0.9 % [facility] GRAN MAT x10^3(ANC) 4.38 1.99 - 6.95 [facility] 10*3/uL HOSPITAL LABORATORY IMM GRAN x10^3 0.03 0.00 - 0.06 [facility] 10*3/uL HOSPITAL LABORATORY LYMPH x10^3 1.15 1.09 - 3.23 [facility] 10*3/uL HOSPITAL LABORATORY MONO x10^3 0.45 0.36 - 1.02 [facility] 10*3/uL HOSPITAL LABORATORY EOS x10^3 0.87 (H) 0.06 - 0.53 [facility] 10*3/uL HOSPITAL LABORATORY BASO x10^3 0.06 0.01 - 0.[address]3/uL [facility] LABORATORY Specimen Blood Performing Organization Address City/State/Zipcode Phone Number [facility] CLIA: [id number] [place] [address] documented in this encounter Visit Diagnoses Diagnosis RUQ pain - Primary Abdominal pain, right upper quadrant Morbid obesity with BMI of 50.0-59.9, ad ult Chronic kidney disease, unspecified CKD stage Coronary artery disease involving port lions coronary artery, angina presence unspecified, unspecified whether port lions or transplanted heart History of stroke Transient ischemic attack (TIA), and cer ebral infarction without residual deficits documented in this encounter documented as of this encounter
--- OUTSIDE RECORDS SUMMARY | 2020-05-23 23:28 | XMS REPORT | Summary of Care ---
:1960 Author Organization [facility] - [facility] Address [address] [place] [address] Care Team Providers Name Role Phone Te Joseph MD Primary Care Provider Reason for Referral MRI/CAT Scan (Routine) Status Reason Specialty Diagnoses / Referred By Referred To Procedures Contact Contact New Request Diagnostic Diagnoses RUQ abdominal pain Binh Quijano, Radiology Procedures CT ABDOMEN PELVIS W CONTRAST DO [address] [place] [address]. RT [address] [place] [id number] Reason for Visit Reason Comments Abdominal Pain Abnormal Lab Auth/Cert Status Reason Specialty Diagnoses / Referred By Referred To Procedures Contact Contact Emergency Medicine Ad[facility] Em ergency Dept [address] [place] [address] Fax: Encounter Details Date Type Department Care Team Description 04/17/2020 Emergency ADC-Emergency Binh Quijano DO RUQ abdominal pain (Primary Dx); Department 301 [facility] Chronic kidney disease, unspecified CKD stage 132 [facility] RT [address] [place] [address] [place] [address] [phone] Allergies Active Allergy Reactions Severity Noted Date [...] Active Problems Problem Noted Date History of [place] (myocardial infarction) 10/14/2017 Type 2 diabetes mellitus [...] with No / Unsure 04/17/2020 10:16 AM BONE CHAR KILN OPERATOR someone who was confirmed or suspected to have Coronavirus / COVID-19? documented as of this encounter Last Filed Vital Signs Vital Sign Reading Time Taken Comments Blood Pressure 119/55 04/17/2020 11:30 AM BONE CHAR KILN OPERATOR Pulse 75 04/17/2020 11:30 AM BONE CHAR KILN OPERATOR Temperature 36 C (96.8 F) 04/17/2020 10:27 AM BONE CHAR KILN OPERATOR Respiratory Rate 19 04/17/2020 11:30 AM BONE CHAR KILN OPERATOR Oxygen Saturation 100% 04/17/2020 11:30 AM BONE CHAR KILN OPERATOR Inhaled Oxygen Concentration - - Weight 174.2 kg (384 lb) 04/17/2020 10:27 AM BONE CHAR KILN OPERATOR Height 185.4 cm (6' 1") 04/17/2020 10:27 AM BONE CHAR KILN OPERATOR Body Mass Index 50.66 04/17/2020 10:27 AM BONE CHAR KILN OPERATOR documented in this encounter Discharge Instructions Binh Guadarrama DO - 04/17/2020 DIAGNOSIS Diagnoses that have been ruled out: None Diagnoses that are still under consideration: None Final diagnoses: RUQ abdominal pain NO LIFE-THREATENING FINDINGS ON TODAY'S EXAM. PROCEDURES IN THE ER TODAY: Orders Placed This Encounter Procedures CT ABDOMEN PELVIS W CONTRAST CBC WITH DIFF COMP. METABOLIC PANEL (84448) URINALYSIS LIPID PANEL (32864)(TOTAL CHOLESTEROL, TRIGLYCERIDES, HDL) LIPASE BILI UNCONJUGATED/BILI CONJUG MEDICATIONS ADMINISTERED IN THE ER TODAY AND DISCHARGE MEDICATIONS: Orders Placed This Encounter Medications NaCl 0.9% (NS) bolus infusion 500 mL iohexol (OMNIPAQUE 350 BULK-500 mL) injection 150 mL FOLLOW-UP RECOMMENDATIONS: RECOMMEND FOLLOW-UP WITH A PRIMARY CARE PROVIDER OR SPECIALIST IN 2-5 DAYS, ESPECIALLY IF NO IMPROVEMENT IN SYMPTOMS. MAY FOLLOW-UP WITH A PROVIDER OF YOUR CHOICE, SUCH : 1. A PHYSICIAN OF YOUR CHOICE 2. [facility], . LOCATIONS IN [facility] 3. [facility], [address] [place] [address]; [phone] OR, IF YOU WISH TO FOLLOW-UP WITHIN THE [facility], MAY TRY THESE OPTIONS (CLINIC APPOINTMENTS AVAILABLE ON LSHB-LO-COXE BASIS): 1. SCHEDULE AN APPOINTMENT ONLINE AT WWW[facility] 2. OR CALL THE [facility] AT OR 3. OR CALL YOUR [facility] PHYSICIAN'S OFFICE DIRECTLY IF YOU ARE ALREADY AN ESTABLISHED [facility] PATIENT. RETURN TO ER FOR WORSENING OF SYMPTOMS. documented in this encounter ED Notes Yoon Little, RN - 04/17/2020 10:26 AM CSTPt states "I have had right sided abdominal pain for the last three months worsening over the last few weeks. The doctor from [place] said I need to get my gallbladder taken out. Dr. Stevens also called me Tuesday and told me me potassium was too high and my kidney labs were elevated". 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 Chief Complaint Chief Complaint Patient presents with Abdominal Pain Abnormal Lab HPI 59-year-old male with multiple medical problems presenting with right upper quadrant abdominal pain and reported elevated potassium. He was seen and evaluated by Dr. Willams which he ordered outpatient labs likely for presurgical clearance. Reportedly had a potassium of 5.9 and was sent to the emergency department for evaluation. Patient additionally states that his right upper quadrant pain hasbecome worse. He does not have a fever. Denies any nausea vomiting or diarrhea. Recently hospitalized in the [facility] for hypoglycemia and then multiple metabolic derangements. Past Medical History / Immunizations Past Medical History: Diagnosis Date Arthritis Asthma Cataracts, bilateral CKD (chronic kidney disease) Diverticulitis 2019 Hypertension Hypothyroidism [place] (myocardial infarction) 2002 X2 Migraine Stroke 2010 Type 2 diabetes mellitus Tetanus received in last 5 years: Unknown Past Surgical History Past Surgical History: Procedure Laterality Date APPENDECTOMY Bilateral Open INCISION AND DRAINAGE Neck, both arms Allergies Allergies Allergen Reactions Penicillins Rash and Anaphylaxis Sulfur Hives Codeine Rash Diazepam Anxiety Sulfa (Sulfonamide Antibiotics) Rash Social History Tobacco Use Former Smoker. Smokeless Tobacco: Never used smokeless tobacco. Alcohol Use Not Currently. Review of Systems Review of Systems Constitutional: Positive for fatigue. Negative for activity change, appetite change, chills, diaphoresis and fever. Respiratory: Negative for cough, chest tightness and shortness of breath. Cardiovascular: Negative for chest pain and leg swelling. Gastrointestinal: Positive for abdominal pain. Negative for diarrhea, nausea and vomiting. Genitourinary: Negative for dysuria. Musculoskeletal: Negative for back pain. Skin: Negative for color change. Neurological: Negative for headaches. Physical Exam BP 119/55 | Pulse 75 | Temp 36 C (96.8 F) (Oral) | Resp 19 | Ht 1.854 m (6' 1") | Wt 174.2 kg (384 lb) | SpO2 100% | BMI 50.66 kg/m Physical Exam Vitals signs and nursing note reviewed. Constitutional: Appearance: He is well-developed. He is obese. HENT: Head: Normocephalic and atraumatic. Eyes: General: No scleral icterus. Conjunctiva/sclera: Conjunctivae normal. Pupils: Pupils are equal, round, and reactive to light. Neck: Musculoskeletal: Normal range of motion and neck supple. Vascular: No JVD. Cardiovascular: Rate and Rhythm: Normal rate and regular rhythm. Heart sounds: Normal heart sounds. Pulmonary: Effort: Pulmonary effort is normal. Breath sounds: Normal breath sounds. No stridor. Abdominal: General: Bowel sounds are normal. Palpations: Abdomen is soft. Tenderness: There is abdominal tenderness in the right upper quadrant. Musculoskeletal: Normal range of motion. Skin: General: Skin is warm and dry. Neurological: Mental Status: He is alert and oriented to person, place, and time. Psychiatric: Behavior: Behavior normal. Thought Content: Thought content normal. Labs Recent Results (from the past 24 hour(s)) CBC WITH DIFF Collection Time: 04/17/20 10:43 AM Result Value Ref Range WBC 5.41 4.20 - 10.70 10*3/L RBC 3.09 (L) 4.26 - 5.52 10*6/L HGB 9.2 (L) 12.2 - 16.4 g/dL HCT 29.3 (L) 38.4 - 49.3 % MCV 94.8 81.7 - 95.6 fL MCH 29.8 26.1 - 32.7 pg MCHC 31.4 31.2 - 35.0 g/dL RDW-SD 52.8 (H) 38.5 - 51.6 fL RDW-CV 15.3 12.1 - 15.4 % PLT 176 150 - 328 10*3/L MPV 11.1 9.8 - 13.0 fL NRBC/100 WBC 0.0 0.0 - 10.0 /100 WBCs NRBC x10^3 <0.01 10*3/L GRAN MAT (NEUT) % 52.6 % IMM GRAN % 0.60 % LYMPH % 20.0 % MONO % 12.2 % EOS % 13.9 % BASO % 0.7 % GRAN MAT x10^3(ANC) 2.85 1.99 - 6.95 10*3/uL IMM GRAN x10^3 0.03 0.00 - 0.06 10*3/uL LYMPH x10^3 1.08 (L) 1.09 - 3.23 10*3/uL MONO x10^3 0.66 0.36 - 1.02 10*3/uL EOS x10^3 0.75 (H) 0.06 - 0.53 10*3/uL BASO x10^3 0.04 0.01 - 0.09 10*3/uL COMP. METABOLIC PANEL (83856) Collection Time: 04/17/20 10:43 AM Result Value Ref Range NA 139 135 - 145 mmol/L K 5.9 (H) 3.5 - 5.0 mmol/L CL 109 (H) 98 - 108 mmol/L CO2 TOTAL 18 (L) 23 - 31 mmol/L AGAP 12 2 - 16 BUN 50 (H) 7 - 23 mg/dL GLUCOSE 105 70 - 110 mg/dL CREATININE 1.84 (H) 0.60 - 1.25 mg/dL TOTAL BILI 0.5 0.1 - 1.1 mg/dL CALCIUM 8.2 (L) 8.6 - 10.6 mg/dL T PROTEIN 7.2 6.3 - 8.2 g/dL ALBUMIN 4.0 3.5 - 5.0 g/dL ALK PHOS 134 (H) 34 - 122 U/L ALTv 12 5 - 50 U/L AST(SGOT) 23 13 - 40 U/L eGFR Calculation (Non-) 37.7 mL/min/1.73m2 eGFR Calculation () 45.7 mL/min/1.73m2 URINALYSIS Collection Time: 04/17/20 10:43 AM Result Value Ref Range APPEARANCE Clear Clear COLOR Straw (A) Yellow PH 5.0 4.8 - 8.0 SP GRAVITY 1.010 1.003 - 1.030 GLU U QUAL Normal Normal BLOOD Negative Negative KETONES Negative Negative PROTEIN Negative Negative UROBILIN Normal Normal BILIRUBIN Negative Negative NITRITE Negative Negative LEUK POPEYE Negative Negative RBC/HPF 2 0 - 3 HPF WBC/HPF 4 0 - 5 HPF BACTERIA Negative Negative SQ EPITH 1 HPF LIPID PANEL (29914)(TOTAL CHOLESTEROL, TRIGLYCERIDES, HDL) Collection Time: 04/17/20 10:43 AM Result Value Ref Range CHOL 100 (L) 120 - 200 mg/dL HDL 23 (L) >40 mg/dL HDLC RATIO 4.3 <=5.0 TRIG 82 30 - 170 mg/dL LDL CHOL 61 <=160 mg/dL VLDL 16 5 - 60 mg/dL LIPASE Collection Time: 04/17/20 10:43 AM Result Value Ref Range LIPASE 58 0 - 220 U/L BILI UNCONJUGATED/BILI CONJUG Collection Time: 04/17/20 10:43 AM Result Value Ref Range BILI CONJ 0.0 0.0 - 0.3 mg/dL BILI UNCON 0.3 0.1 - 1.1 mg/dL Imaging No results found for this visit on 04/17/20. Orders and Treatments Orders Placed This Encounter Procedures CT ABDOMEN PELVIS W CONTRAST CBC WITH DIFF COMP. METABOLIC PANEL (30057) URINALYSIS LIPID PANEL (70161)(TOTAL CHOLESTEROL, TRIGLYCERIDES, HDL) LIPASE BILI UNCONJUGATED/BILI CONJUG Orders Placed This Encounter Medications NaCl 0.9% (NS) bolus infusion 500 mL iohexol (OMNIPAQUE 350 BULK-500 mL) injection 150 mL Procedures See ED Procedure Note Notes & MDM Patient was evaluated for an emergency medical condition related to Abdominal Pain and Abnormal Lab . Differential diagnoses considered by presenting complaints but not limited to: Cholecystitis, choledocholithiasis, biliary dyskinesia, biliary dysfunction, pancreatitis, obstruction, metabolic derangements and others. ED Course as of Apr 17 122 Marj Apr 17, 2020 1109 HGB(!): 9.2 [PS] 1109 WBC x10^3: 5.41 [PS] ED Course User Index [PS] Binh Quijano DO Labs:were ordered, and resulted, any relevant abnormalities were considered. Imaging:Ordered, and resulted, any relevant abnormalities were considered. IV fluids: not indicated Procedures:were not performed. EKG: Time 10:33 AM. Rate 73. Normal sinus rhythm, normal axis, normal intervals, normal ST segments. Rhythm Strip Interpretation: 74 Normal Sinus Rhythm Pulse Oximetry room air Assessment: 59-year-old male presenting with right upper quadrant abdominal pain and concern for hyperkalemia. Patient does not have EKG changes that are concerning for effects of potassium. Patient needs to follow-up with Dr. Soliz for surgical clearance, kidney dysfunction, as well as Dr. Rodas for cardiology. Additionally the patient cannot be managed at [place] surgically secondary to his body habitus. Patient has been referred to Dr. Reyez in [place] who will evaluate him for possible surgicalintervention if he is a candidate. History, physical exam findings, results of visit, differential diagnosis, medication regimens and plan of future care have been considered. Additional MDM may be found in the ED course. Differential diagnosis considered and final disposition made based on information gathered during evaluation and may not be completely ruled out or specifically listed. Vital signs were rechecked before final disposition and determined to be stable. Diagnosis ICD-10-CM ICD-9-CM 1. RUQ abdominal pain R10.11 789.01 2. Chronic kidney disease, unspecified CKD stage N18.9 585.9 Disposition & Follow Up ED Disposition ED Disposition Condition Comment Disch - Home Stable Patient's Medications START taking these medications No [...] medications on file STOP taking these medications No medications on file Contact information for follow-up Yue Reyez MD Specialty: [facility]ANDEL-SURGERY [address] [place] [phone] Instructions: For follow up of the presenting symptoms. Milan Soliz DO Specialty: IM-NEPHROLOGY [address] [place] [phone] ADC-Emergency Department Specialty: Emergency Medicine [address] [place] [address] Instructions: If symptoms worsen as documented in the discharge Binh Quijano DO 04/17/2020 10:42 AM ACTIVE COVID-19 PANDEMIC. documented in this encounter Miscellaneous Notes ED Nurse Note - Vitaliy Ugalde RN - 04/17/2020 1:22 PM CSTVerbalized understanding of discharge instructions. No signs of distress observed. RR even and unlabored. Encouraged to return to ER if symptoms worsen. CHAR KILN OPERATOR documented in this encounter Plan of Treatment Date Type Specialty Care Team Description 04/21/2020 Appointment Radiology Kandi Blackburn MD [address] [facility] 2.[address] [place] [address] [phone] Health Maintenance Due Date Last Done Comments [...] encounter Procedures Procedure Name Priority Date/Time Associated Comments Diagnosis CT ABDOMEN PELVIS W Routine 04/17/2020 12:04 PM RUQ abdominal pain Results for this CONTRAST BONE CHAR KILN OPERATOR procedure are i n the results section. URINALYSIS STAT 04/17/2020 10:43 AM RUQ abdominal pain Re sults for this BONE CHAR KILN OPERATOR procedure are i n the results section. CBC WITH DIFF STAT 04/17/2020 10:43 AM RUQ abdominal pain R esults for this BONE CHAR KILN OPERATOR procedure are i n the results section. LIPID PANEL STAT 04/17/2020 10:43 AM RUQ abdominal pain Re sults for this (26347)(TOTAL BONE CHAR KILN OPERATOR procedure are in CHOLESTEROL, the results TRIGLYCERIDES, HDL) section. COMP. METABOLIC STAT 04/17/2020 10:43 AM RUQ abdominal pain Results for this PANEL (15271) BONE CHAR KILN OPERATOR procedure are in the results section. BILI STAT 04/17/2020 10:43 AM RUQ abdominal pain Re sults for this UNCONJUGATED/BILI BONE CHAR KILN OPERATOR procedure are in CONJUG the results section. LIPASE STAT 04/17/2020 10:43 AM RUQ abdominal pain Re sults for this BONE CHAR KILN OPERATOR procedure are i n the results section. documented in this encounter Results CT ABDOMEN PELVIS W CONTRAST (04/17/2020 12:04 PM BONE CHAR KILN OPERATOR) Specimen Narrative Performed At CT Abdomen and Pelvis with intravenous c ontrast. PACS/VR/DOSE CLINICAL HISTORY: Abdominal pain. DOSE: Up-to-date CT equipment and radiation dose reduc tion techniques were employed. CTDIvol: 27.34+23.09 MGy. DLP: 1580+ 330 mGy-cm. TECHNIQUE : Contiguous axial imaging fro m the level of the lung bases through the pubic symphysis were perform ed after the uncomplicated administration of Omnipaque contrast mat erial. Coronal and sagittal reconstructions were obtained. Auto mA and/or iterativ e reconstruction were used to reduce radiation dose. FINDINGS: Lower lungs: Clear. No pleural effusion. Minimal pericardial effusion. Probable short sliding hiatal hernia. Liver, Gallbladder and Spleen: Liver measures 15.4 cm in length and appears normal. Spleen is enlarged, measuring 16 x 7 cm. 22 mm and 10 mm accessory splenules noted near the hilum of the spleen. Mildly h ydropic gallbladder noted with several gallstones in the bod y and neck region. Biliary ducts are not dilated. Peritoneum: No free air or free fluid. No lymphadenopathy. Pancreas and Adrenals: Unremarkable pa ncreas and adrenal glands. Kidneys and Ureters: 9 mm calcification in the right kidney adjacent to cortical scar in the upper pole. Nonobst ructing 4 mm stone in the lower pole of the left kidney. No hydroureter or hydronephrosis. Vessels: Mild atherosclerosis. Retroperitoneum: No abnormal fluid. Subcentimeter lymp h nodes are seen in the retroperitoneum surrounding the IVC, aorta and extending into left common iliac chain. Bowel: Some of the details of intra-abdo luis manuel structures L4 due to large size of the patient. Constipation, diverticulosis of s igmoid and descending colon noted without any definite CT sign s of acute diverticulitis. No signs of acute appendicitis. Small agus wel gas pattern is unremarkable. Bladder and Reproductive Organs: Grossly unremarkable unopacified urinary bladder. Bones: No aggressive bone lesions. Soft tissues: Diffusely congested soft t issues. Additional focal subcutaneous congestion of the anterior abdominal wall below umbilicus could be sites of cutaneous injection of medications. CONCLUSION: 1. Gallstones and mildly hydropic gallbl adder without any associated CT evidence of acute cholecystitis. 2. 9 mm calcification in the upper right kidney near cortical scar and a nonobstructing 4 mm stone in the lower p ole of the left kidney. 3. Constipation, diverticulosis or large bowel without any acute changes. 4. Splenomegaly. Procedure Note [facility], Radiant Results Inft User - 2019 12:22 PM BONE CHAR KILN OPERATOR CT Abdomen and Pelvis with intravenous contrast. CLINICAL HISTORY: Abdominal pain. DOSE: Up-to-date CT equipment and radiat ion dose reduction techniques were employed. CTDIvol: 27.34+23.09 MGy. DLP: 1580+ 330 mGy-cm. TECHNIQUE : Contiguous axial imaging fro m the level of the lung bases through the pubic symphysis were perform ed after the uncomplicated administration of Omnipaque contrast mat erial. Coronal and sagittal reconstructions were obtained. Auto mA a nd/or iterative reconstruction were used to reduce radiation dose. FINDINGS: Lower lungs: Clear. No pleural effusion. Minimal pericardial effusion. Probable short sliding hiatal hernia. Liver, Gallbladder and Spleen: Liver aries sures 15.4 cm in length and appears normal. Spleen is enlarged, measuring 16 x 7 cm. 22 mm and 10 mm accessory splenules noted near the hilum of the sp varghese. Mildly hydropic gallbladder noted with several gallstones in the bod y and neck region. Biliary ducts are not dilated. Peritoneum: No free air or free fluid. No lymphadenopathy. Pancreas and Adrenals: Unremarkable bustillos creas and adrenal glands. Kidneys and Ureters: 9 mm calcification in the right kidney adjacent to cortical scar in the upper pole. Nonobst ructing 4 mm stone in the lower pole of the left kidney. No hydroureter or hydronephrosis. Vessels: Mild atherosclerosis. Retroperitoneum: No abnormal fluid. Subc entimeter lymph nodes are seen in the retroperitoneum surrounding the IVC, aorta and extending into left common iliac chain. Bowel: Some of the details of intra-abdo luis manuel structures L4 due to large size of the patient. Constipation, diver ticulosis of sigmoid and descending colon noted without any definite CT sign s of acute diverticulitis. No signs of acute appendicitis. Small agus wel gas pattern is unremarkable. Bladder and Reproductive Organs: Grossly unremarkable unopacified urinary bladder. Bones: No aggressive bone lesions. Soft tissues: Diffusely congested soft t issues. Additional focal subcutaneous congestion of the anterior abdominal wall below umbilicus could be sites of cutaneous injection of medications. CONCLUSION: 1. Gallstones and mildly hydropic gallbl adder without any associated CT evidence of acute cholecystitis. 2. 9 mm calcification in the upper right kidney near cortical scar and a nonobstructing 4 mm stone in the lower p ole of the left kidney. 3. Constipation, diverticulosis or large bowel without any acute changes. 4. Splenomegaly. Performing Organization Address [facility] [place] Number PACS/VR/DOSE BILI UNCONJUGATED/BILI CONJUG (04/17/2020 10:43 AM BONE CHAR KILN OPERATOR) Pathologist [facility] BILI CONJ 0.0 0.0 - 0.3 mg/dL [facility] BILI UNCON 0.3 0.1 - 1.1 mg/dL [facility] Specimen Blood - VENOUS Performing Organization Address [facility] Number [facility] CLIA: [id number] [place] [address] LIPASE (04/17/2020 10:43 AM BONE CHAR KILN OPERATOR) Pathologist [facility] LIPASE 58 0 - 220 U/L [facility] Specimen Blood - VENOUS Performing Organization Address [facility] [place] Number [facility] CLIA: [id number] [place], [place] [address] LABORATORY [address] LIPID PANEL (17770)(TOTAL CHOLESTEROL, TRIGLYCERIDES, HDL) (04/17/2020 10:43 AM BONE CHAR KILN OPERATOR) Pathologist [facility] CHOL 100 (L) 120 - 200 mg/dL [facility] HDL 23 (L) >40 mg/dL [facility] HDLC RATIO 4.3 <=5.0 [facility] TRIG 82 30 - 170 mg/dL [facility] LDL CHOL 61 <=160 mg/dL [facility] VLDL 16 5 - 60 mg/dL [facility] Specimen Blood - VENOUS Performing Organization Address [facility] Phone Number [facility] CLIA: [id number] [place] [address] LABORATORY [address] [facility] URINALYSIS (04/17/2020 10:43 AM BONE CHAR KILN OPERATOR) Pathologist Sig nature APPEARANCE Clear Clear [facility] COLOR Straw (A) Yellow [facility] PH 5.0 4.8 - 8.0 [facility] SP GRAVITY 1.010 1.003 - 1.030 [facility] GLU U QUAL Normal Normal [facility] BLOOD Negative Negative [facility] KETONES Negative Negative [facility] PROTEIN Negative Negative [facility] UROBILIN Normal Normal [facility] BILIRUBIN Negative Negative [facility] NITRITE Negative Negative [facility] LEUK POPEYE Negative Negative [facility] RBC/HPF 2 0 - 3 HPF [facility] WBC/HPF 4 0 - 5 HPF [facility] BACTERIA Negative Negative [facility] SQ EPITH 1 HPF [facility] Specimen Urine - URINE, CLEAN CATCH Performing Organization Address [facility] Phone Number [facility] CLIA: [id number] [place] [address] [place] [address] COMP. METABOLIC PANEL (98722) (04/17/2020 10:43 AM BONE CHAR KILN OPERATOR) NA 139 135 - 145 [facility] mmol/L [facility] K 5.9 (H) 3.5 - 5.0 [facility] mmol/L [facility] CL 109 (H) 98 - 108 mmol/L [facility] CO2 TOTAL 18 (L) 23 - 31 mmol/L [facility] AGAP 12 2 - 16 [facility] BUN 50 (H) 7 - 23 mg/dL [facility] GLUCOSE 105 70 - 110 mg/dL [facility] CREATININE 1.84 (H) 0.60 - 1.25 [facility] mg/dL [facility] TOTAL BILI 0.5 0.1 - 1.1 mg/dL [facility] CALCIUM 8.2 (L) 8.6 - 10.6 [facility] mg/dL [facility] T PROTEIN 7.2 6.3 - 8.2 g/dL [facility] ALBUMIN 4.0 3.5 - 5.0 g/dL [facility] ALK PHOS 134 (H) 34 - 122 U/L [facility] ALTv 12 5 - 50 U/L [facility] AST(SGOT) 23 13 - 40 U/L [facility] eGFR Calculation 37.7 mL/min/1.73m2 [facility] ([facility] [place]) eGFR Calculation 45.7 mL/min/1.73m2 [facility] () [facility] Specimen Blood - VENOUS Narrative Performed At [facility] [place] of Glomerular Filtration Rate (GFR) [facility] and Staging of Kidney Disease* [...] tests). Performing Organization Address City/State/Zipcode Phone Number [facility] CLIA: [id number] [place] [address] CBC WITH DIFF (04/17/2020 10:43 AM BONE CHAR KILN OPERATOR) [facility] WBC 5.41 4.20 - 10.70 [facility] 10*3/L HOSPITAL LABORATORY RBC 3.09 (L) 4.26 - 5.52 [facility] 10*6/L H[facility]ITAL LAB[facility]ORY HGB 9.2 (L) 12.2 - 16.4 [facility] g/dL HOSPITAL LAB[facility]ORY HCT 29.3 (L) 38.4 - 49.3 % [facility] MCV 94.8 81.7 - 95.6 fL [facility] MCH 29.8 26.1 - 32.7 pg [facility] MCHC 31.4 31.2 - 35.0 [facility] g/dL [facility] RDW-SD 52.8 (H) 38.5 - 51.6 fL [facility] RDW-CV 15.3 12.1 - 15.4 % [facility] PLT 176 150 - 328 [facility] 10*3/L [facility] MPV 11.1 9.8 - 13.0 fL [facility] NRBC/100 WBC 0.0 0.0 - 10.0 /100 [facility] WBCs [facility] NRBC x10^3 <0.01 10*3/L [facility] GRAN MAT (NEUT) % 52.6 % [facility] IMM GRAN % 0.60 % [facility] LYMPH % 20.0 % [facility] MONO % 12.2 % [facility] EOS % 13.9 % [facility] BASO % 0.7 % [facility] GRAN MAT x10^3(ANC) 2.85 1.99 - 6.95 [facility] 10*3/uL HOSPITAL LABORATORY IMM GRAN x10^3 0.03 0.00 - 0.06 [facility] 10*3/uL HOSPITAL LABORATORY LYMPH x10^3 1.08 (L) 1.09 - 3.23 [facility] 10*3/uL HOSPITAL LABORATORY MONO x10^3 0.66 0.36 - 1.02 [facility] 10*3/uL HOSPITAL LABORATORY EOS x10^3 0.75 (H) 0.06 - 0.53 [facility] 10*3/uL HOSPITAL LAB[facility]ATORY BASO x10^3 0.04 0.01 - 0.09 [facility] 10*3/uL HOSPITAL LABORATORY Specimen Blood - VENOUS Performing Organization Address City/State/Zipcode Phone Number [facility] CLIA: [id number] [place] [address] documented in this encounter Visit Diagnoses Diagnosis RUQ abdominal pain - Primary Abdominal pain, right upper quadrant Chronic kidney disease, unspecified CKD stage documented in this encounter Administered Medications Medication Order MAR Action Action Date Dose Rate Site iohexol (OMNIPAQUE 350 BULK-500 Given 04/17/2020 11:51 AM BONE CHAR KILN OPERATOR 11 0 mL mL) injection 150 mL 150 mL, Intravenous, ONCE, 1 dose, Marj 04/17/20 at 1315, Routine NaCl 0.9% (NS) bolus infusion 500 New Bag 04/17/2020 10:46 AM BONE CHAR KILN OPERATOR 500 mL 999 mL/hr mL at 999 mL/hr, 500 mL, IV Infusion, ONCE, 1 dose, Marj 04/17/20 at 1045, STAT documented in this encounter documented as of this encounter
--- OUTSIDE RECORDS SUMMARY | 2020-05-23 23:28 | XMS REPORT | Summary of Care ---
:1960 Author Organization [facility] - [facility] Address [address] [place] [address] Care Team Providers Name Role Phone Te Joseph MD Primary Care Provider Reason for Referral (Routine) Status Reason Specialty Diagnoses / Referred By Referred To Contact Procedures Contact New Request Diagnoses RUQ pain Morbid obesity with BMI of 50.0-59.9, adult Kandi Blackburn Samreen, S arah, MD Procedures CONSULT/REFERRAL GENERAL SURGERY [address] [place] [address] 2.100 [phone] [place], [place] Phone: [phone] (Routine) Status Reason Specialty Diagnoses / Referred By Referred To Procedures Contact Contact Canceled Location Nephrology Diagnoses Chronic kidney disease, unspecified CKD stage Martínez Blackburn Fabio Preference Procedures CONSULT/REFERRAL NEPHROLOGY MD Kandi G, DO [address] [place] [address] 2.100 [facility] [phone] Phone: Fax: Radiology Services (Routine) Status Reason Specialty Diagnoses / Referred By Referred To Procedures Contact Contact New Request Diagnostic Diagnoses RUQ pain Chronic kidney disease, unspecified CKD stage Alexey, Radiology Procedures US ABDOMEN LIMITED MD Kandi [address] [place] [address] 2.100 [place] [phone] Reason for Visit Reason Comments GALLSTONES Encounter Details Date Type Department Care Team Description 04/14/2020 Office Visit [facility] Health General Kandi Blackburn RUQ pain (Primary Dx); Surgery- Faith PHELAN Morbid obesity with BMI of 50.0-59.9, ad ult; [address] [place] [address] Driv [address] [facility] Chronic kidney disease, unsp ecified CKD stage; [address] [facility] Coronary artery disease involving togiak coronary artery, angina presence unspecified, unspecified whether togiak or transplanted heart; MATHEW Cuevas Devin 2.100 History of stroke [phone] [place], [place] [phone] [address] [phone] Allergies Active Allergy Reactions Severity Noted Date [...] Active Problems Problem Noted Date History of CT (myocardial infarction) 10/14/2017 Type 2 diabetes mellitus [...] with No / Unsure 04/17/2020 10:16 AM RESTAURANT LINE COOK someone who was confirmed or suspected to have Coronavirus / COVID-19? documented as of this encounter Last Filed Vital Signs Vital Sign Reading Time Taken Comments Blood Pressure 118/66 04/14/2020 9:15 AM RESTAURANT LINE COOK Pulse 83 04/14/2020 9:15 AM [employer]AURANT LINE COOK Temperature 36.1 C (97 F) 04/14/2020 9:15 AM [employer]AURANT LINE COOK Respiratory Rate 18 04/14/2020 9:15 AM RESTAURANT LINE COOK Oxygen Saturation - - Inhaled Oxygen Concentration - - Weight 174.4 kg (384 lb 6.4 oz) 04/14/2020 9:15 AM [employer]AURANT LINE COOK Height 177.8 cm (5' 10") 04/14/2020 9:15 AM RESTAURANT LINE COOK Body Mass Index 55.16 04/14/2020 9:15 AM RESTAURANT LINE COOK documented in this encounter Progress Notes Kandi Blackburn MD - 04/14/2020 9:15 AM CST GENERAL SURGERY CLINIC NOTE Reason for Visit / Chief Complaint: Right upper quadrant pain History of Present Illness: Tyson Addison is a 59 year old male with PMHx as below who presents for evaluation of right upper quadrant pain. 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 He had had [address]'s and a stroke. He has not had cardiology follow up in years. He also has underlying CKD but has not seen a assignment editor. Past Medical History: Past Medical History: Diagnosis Date Arthritis Asthma Cataracts, bilateral CKD (chronic kidney disease) Diverticulitis [address] (myocardial infarction) 2001 X2 Migraine Stroke 2009 [...] file Gets together: Not on file Attends amish service: Not on file Active member of [...] othopnea, claudication, edema, coronary artery disease/history of CT Respiratory: Cough, sputum production, hemoptysis, wheezing, shortness [...] BMI 55.16, has had a stroke and CT X2, and CKD. He has not seen his helicopter utility aircrewman or a renal specialist. Plan: 1. CBC, CMP 2. RUQ U/S 3. Refer to Dr. Soliz for evaluation of CKD 4. Refer to Dr. Rodas for cardiac evaluation 5. Refer to Dr. Reyez for cholecystectomy and possible weight reduction surgery for this [place] patient Kandi Blackburn M.D. 04/14/2020 10:16 oLaura carrizales - 04/14/2020 9:15 AM CST [facility] General Surgery Clinic Note Chief Complaint: "Gallbladder full of stones" HPI: Tyson Addison is a 59 year old male with PMH of previous CT (2001 x2), HTN, T2DM, and most recently being found unconscious in his truck in [place] for ~18 hours. Diagnosis included kidney and [...] file Gets together: Not on file Attends amish service: Not on file Active member of [...] Problem List Diagnosis Date Noted History of CT (myocardial infarction) 10/14/2017 Type 2 diabetes mellitus without complication 10/14/2017 HTN (hypertension) 10/14/2017 Chest pain 10/14/2017 Cellulitis of left leg 10/13/2017 Morbid obesity with body mass index of 50 or higher 10/13/2017 Cellulitis 10/13/2017 Assessment & Plan: Tyson Addison is a 59 year old male with PMH of CT (2001, no intervention), T2DM, HTN, kidney disease presenting with RUQ pain, nausea/vomiting, acholic stools and steatorrhea, concerning for cholelithiasis and/or pancreatitis. 1. Ordered ultrasound imaging to confirm diagnosis. 2. Ordered lab studies (CBC, CMP, alk phos, liver enzymes, T bili) to confirm diagnosis. 3. Asked patient to follow up with his helicopter utility aircrewman, Dr. Rodas, for cardiac work-up prior to surgery. 4. Referred patient to assignment editor. 5. Encouraged patient to follow up with his PCP, Dr. Joseph, to facilitate communication after hospitalization in [place]. 6. Referred patient to Dr. Reyez for cholecystectomy with bariatric capabilities, due to patient'ssize. 7. Educated patient to follow a low-fat, bland diet in the interim. Patient seen and discussed with faculty, Dr. Blackburn. Laura Brenner, [id number] signed by Kandi Blackburn MD at 04/17/2020 2:39 PM Claudia Mora - 04/14/2020 9:15 AM Gonzalez Addison is a 59 year old male comes to clinic independent in ambulation for new patient gallbladder. Pt comes alone . Pt in NAD w/ pain reported 0/10. Pt preferred language is [place]. Pt. denies fall in last 12 months. Allergies and medications reviewed and updated. [id number] - [place], [place] - [address] [facility] [employer] Claudia Sandhu 04/14/2020 9:17 AM documented in this encounter Plan of Treatment Date Type Specialty Care Team Description 04/21/2020 Appointment Radiology Kandi Blackburn MD [address] [facility] 2.100 [place] [address] [phone] 05/06/2020 Office Visit Surgery Yue Reyez MD [address] [place] [address] [phone] Name Type Priority Associated Diagnoses [...] of this encounter Results COMP. METABOLIC PANEL (92018) (04/14/2020 2:02 PM RESTAURANT LINE COOK) NA 141 135 - 145 [facility] mmol/L [facility] K 5.9 (H) 3.5 - 5.0 [facility] mmol/L [facility] CL 110 (H) 98 - 108 mmol/L [facility] CO2 TOTAL 20 (L) 23 - 31 mmol/L [facility] AGAP 11 2 - 16 [facility] BUN 38 (H) 7 - 23 mg/dL [facility] GLUCOSE 92 70 - 110 mg/dL [facility] CREATININE 1.79 (H) 0.60 - 1.25 [facility] mg/dL [facility] TOTAL BILI 0.5 0.1 - 1.1 mg/dL [facility] CALCIUM 8.1 (L) 8.6 - 10.6 [facility] mg/dL [facility] T PROTEIN 6.5 6.3 - 8.2 g/dL [facility] ALBUMIN 3.6 3.5 - 5.0 g/dL [facility] ALK PHOS 146 (H) 34 - 122 U/L [facility] ALTv 10 5 - 50 U/L [facility] AST(SGOT) 19 13 - 40 U/L [facility] eGFR Calculation 38.9 mL/min/1.73m2 [facility] [place] eGFR Calculation 47.2 mL/min/1.73m2 [facility] ([facility]) [facility] Specimen Blood Narrative Performed At [facility] Glomerular Filtration Rate (GFR) [facility] and Staging of Kidney Disease* [...] tests). Performing Organization Address City/State/Zipcode Phone Number [facility] CLIA: [id number] [place] [address] CBC WITH DIFF (04/14/2020 2:02 PM RESTAURANT LINE COOK) Pathologist Sig nature WBC 6.94 4.20 - 10.70 [facility] 10*3/L [facility] RBC 3.28 (L) 4.26 - 5.52 [facility] 10*6/L [facility] HGB 9.3 (L) 12.2 - 16.4 [facility] g/dL [facility] HCT 32.1 (L) 38.4 - 49.3 % [facility] MCV 97.9 (H) 81.7 - 95.6 fL [facility] MCH 28.4 26.1 - 32.7 pg [facility] MCHC 29.0 (L) 31.2 - 35.0 [facility] g/dL [facility] RDW-SD 54.9 (H) 38.5 - 51.6 fL [facility] RDW-CV 15.3 12.1 - 15.4 % [facility] PLT 198 150 - 328 [facility] 10*3/L [facility] MPV 11.3 9.8 - 13.0 fL [facility] NRBC/100 WBC 0.0 0.0 - 10.0 /100 [facility] WBCs [facility] NRBC x10^3 <0.01 10*3/L [facility] GRAN MAT (NEUT) % 63.1 % [facility] IMM GRAN % 0.40 % [facility] LYMPH % 16.6 % [facility] MONO % 6.5 % [facility] EOS % 12.5 % [facility] BASO % 0.9 % [facility] GRAN MAT x10^3(ANC) 4.38 1.99 - 6.95 [facility] 10*3/uL HOSPITAL LABORATORY IMM GRAN x10^3 0.03 0.00 - 0.06 [facility] 10*3/uL HOSPITAL LAB[facility]ATORY LYMPH x10^3 1.15 1.09 - 3.23 [facility] 10*3/uL HOSPITAL LABORATORY MONO x10^3 0.45 0.36 - 1.02 [facility] 10*3/uL HOSPITAL LABORATORY EOS x10^3 0.87 (H) 0.06 - 0.53 [facility] 10*3/uL HOSPITAL LABORATORY BASO x10^3 0.06 0.01 - 0.[address]uL [facility] Specimen Blood Performing Organization Address City/State/Zipcode Phone Number [facility] CLIA: [id number] [place] [address] documented in this encounter Visit Diagnoses Diagnosis RUQ pain - Primary Abdominal pain, right upper quadrant Morbid obesity with BMI of 50.0-59.9, ad ult Chronic kidney disease, unspecified CKD stage Coronary artery disease involving [place]gi[place] coronary artery, angina presence unspecified, unspecified whether [place] or transplanted heart History of stroke Transient ischemic attack (TIA), and cer ebral infarction without residual deficits documented in this encounter documented as of this encounter
--- OUTSIDE RECORDS SUMMARY | 2020-05-23 23:30 | XMS REPORT | Summary of Care ---
:1960 Author Organization [facility] - [facility] Address [address] [place] [address] Care Team Providers Name Role Phone Paulo Taylor MD Primary Care Provider Reason for Referral (Routine) Status Reason Specialty Diagnoses / Referred By Referred To Procedures Contact Contact New Request Pulmonary Disease Diagnoses Biliary colic Lexy Medina, Procedures Consult/Referral Post-COVID Recovery Clinic [address] [facility]. [address] [place] [address] ([place]) Status Reason Specialty Diagnoses / Referred By Contact Refe rred To Procedures Contact Open IM-NEPHROLOGY Diagnoses Biliary lillianc Lexy Medina MD Procedures Discharge Follow-Up: Specialty Service IM-NEPHROLOGY (Dr. Uribe ); 2 Weeks [address] [facility]. [address] [place], [place] [address] Phone: (Routine) Status Reason Specialty Diagnoses / Referred By Contact Refe rred To Procedures Contact New Request Diagnoses Biliary lillianc Lexy Medina MD Wells, Paul Procedures Discharge Follow-up: PCP TE TAYLOR; 1 Week [address] [place] Julio hurley MD [facility]. [address] [place], [place] [address] [place], [place] Phone: [phone] Fax: (Routine) Status Reason Specialty Diagnoses / Referred By Referred To Procedures Contact Contact Closed Vascular Sonography Procedures Fernando Flores CAROTID DUPLEX MD Herman BILATERAL BY [address] [facility] [address] [facility] [address] [place] [phone] (Routine) Status Reason Specialty Diagnoses / Referred By Referred To Procedures Contact Contact New Request Cardiology Diagnoses Syncope, unspecified syncope type Flores, Sendil Procedures ECHO ROUTINE W/DOPPLER COLOR MD Herman [address] [facility] [place] [phone] Radiology Services (Routine) Status Reason Specialty Diagnoses / Referred By Referred To Procedures Contact Contact New Request Diagnostic Diagnoses COVID-19 Mariola Johnson, Radiology Procedures XR CHEST [address] [place] [address] (Routine) Status Reason Specialty Diagnoses / Referred By Referred To Procedures Contact Contact New Request Vascular Procedures Mariola Johnson, Sonography CAROTID DUPLEX BILATERAL BY [address] [place] [address] (Routine) Status Reason Specialty Diagnoses / Referred By Referred To Procedures Contact Contact New Request Echocardiograph Diagnoses Syncope, unspecified syncope type Mariola Johnson, Procedures ECHO ROUTINE W/DOPPLER COLOR [address] [place] [address] Radiology Services (STAT) Status Reason Specialty Diagnoses / Referred By Referred To Procedures Contact Contact New Request Diagnostic Diagnoses Biliary colic Binh Quijano, Radiology Procedures US ABDOMEN LIMITED DO [address] [place] [address] [address] [place] [address] Reason for Visit Reason Comments Abdominal Pain RUQ Shortness of Breath Fatigue Auth/Cert Status Reason Specialty Diagnoses / Referred By Referred To Procedures Contact Contact Emergency Medicine [facility] ergency Dept [address] [place] [address] Fax: Encounter Details Date Type Department Care Team Description 05/08/2020 - Emergency ADC Intensive Care Yakov Quijano DO [address] [place] [address]. [address] [place] [address] [phone] Symptomatic 05/09/2020 Unit Jr Lloyd MD [address] [place] [address] [phone] cholelithiasis [address] [facility] [address] Allergies Active Allergy Reactions Severity Noted Date Comments Codeine Rash 10/13/2017 Diazepam Anxiety 03/14/2020 Penicillins Rash, Anaphylaxis High 10/13/2017 Sulfa (Sulfonamide Antibiotics) Rash 8 Sulfur Hives High 03/16/2020 documented as of this encounter (statuses as of 05/09/2020) Medications Medication Sig Dispensed Refills Start End Status Date Date gemfibrozil 600 mg Take 600 mg 0 Active tablet by mouth 2 (two) times daily before breakfast and dinner. phentermine 37.5 mg Take 37.5 mg 0 Active capsule by mouth every morning. LEVOTHYROXINE SODIUM Take 225 mcg 0 Active (SYNTHROID ORAL) by mouth daily. traMADOL 50 mg tablet Take 50 mg by 0 Active mouth every 8 (eight) hours as needed for Pain (scale 1-3), Pain (scale 4-6) or Pain (scale 7-10). aspirin 81 mg chewable Take 81 mg by 0 Active tablet mouth daily. tamsulosin HCl Take 0.4 mg 0 Act oscar (TAMSULOSIN ORAL) by mouth. montelukast 10 mg Take 10 mg by 0 Active tablet mouth. calcitrioL 0.25 mcg Take 0.25 mcg 0 Active capsule by mouth daily. nitroglycerin Take by 0 Active (NITRO-TIME ORAL) mouth. atenoloL 25 mg tablet Take 25 mg by 0 Active mouth daily. ergocalciferol, vitamin Take 1 4 capsule 2 05/09/20 Active d2, (VITAMIN D2) 1,250 capsule by 20 021 mcg (50,000 unit) mouth weekly capsuleIndications: for 90 days. Biliary colic sodium bicarbonate 650 Take 2 120 tablet 0 05/09/20 Active mg tabletIndications: tablets by 20 021 Biliary colic mouth 2 (two) times daily for 30 days. magnesium oxide 420 mg Take 400 mg 30 tablet 0 05/09/2006/08 Active TabIndications: Biliary by mouth 20 021 colic daily for 30 days. zinc sulfate 220 (50) Take 1 14 capsule 0 05/09/20 Active mg capsuleIndications: capsule by 20 020 Biliary colic mouth daily for 14 days. sodium polystyrene Take 60 mL by 480 mL 0 05/12/20 Active sulfonate 15 gram/60 mL mouth 2 (two) 02 1 suspensionIndications: times weekly Biliary colic on Tuesday and Tuesday for 30 days. hydroCHLOROthiazide Take 1 30 capsule 0 05/09/20 Active 12.5 mg capsule by 20 021 capsuleIndications: mouth daily Biliary colic for 30 days. pioglitazone 45 mg Take 45 mg by 0 Discontinued tablet mouth daily. 020 glyBURIDE 5 mg tablet Take 10 mg by 0 04/29 05/31 Discontinued mouth daily 020 with breakfast. ergocalciferol, vitamin Take by 0 Discontinued D2, (VITAMIN D ORAL) mouth. 020 SODIUM BICARBONATE ORAL Take by 0 Discontinued mouth. 020 quinapril HCl Take by 0 Discon tinued (QUINAPRIL ORAL) mouth. 020 Calcium Carbonate 260 Take 648 mg 0 03/23/20 Discontinued mg calcium (648 mg) Tab by mouth 3 20 020 (three) times daily. ergocalciferol, vitamin Take 50,000 0 03/23/2004/29 Discontinued d2, 1,250 mcg (50,000 Units by 20 020 unit) capsule mouth 2 (two) times per week. cholecalciferol, Take 1,000 0 03/24/20 Di scontinued vitamin D3, 25 mcg Units by 20 020 ( Patient (1,000 unit) tablet mouth. Reported) hydrOXYchloroQUINE 200 0 05/01/20 Discontinued mg tablet 20 020 (Patient Reported) documented as of this encounter (statuses as of 05/09/2020) Active Problems Problem Noted Date COVID-19 05/08/2020 Symptomatic cholelithiasis 05/06/2020 Overview: Added automatically from request for meggan mehran [id number] History of NV (myocardial infarction) 10/14/2017 Type 2 diabetes mellitus without complication 10/15/19 18 HTN (hypertension) 10/14/2017 Chest pain 10/14/2017 Cellulitis of left leg 10/13/2017 Morbid obesity with body mass index of 50 or higher Cellulitis 10/13/2017 documented as of this encounter (statuses as of 05/09/2020) Social History Tobacco Use Types Packs/Day Years Used Date Former Smoker Smokeless Tobacco: Never Used Alcohol Use Drinks/Week oz/Week Comments Not Currently Sex Assigned at Date Recorded Not on file COVID-19 Exposure Response Date Recorded In the last month, have you been in contact with No / Unsure 05/08/2020 1:51 PM MEDICAL CONSULTANT someone who was confirmed or suspected to have Coronavirus / COVID-19? documented as of this encounter Last Filed Vital Signs Vital Sign Reading Time Taken Comments Blood Pressure 127/52 05/09/2020 1:00 PM MEDICAL CONSULTANT Pulse 77 05/09/2020 1:00 PM MEDICAL CONSULTANT Temperature 36.6 C (97.8 F) 05/09/2020 1:00 PM MEDICAL CONSULTANT Respiratory Rate 17 05/09/2020 1:00 PM MEDICAL CONSULTANT Oxygen Saturation 95% 05/09/2020 1:00 PM MEDICAL CONSULTANT Inhaled Oxygen Concentration - - Weight 191.4 kg (422 lb) 05/08/2020 6:20 PM MEDICAL CONSULTANT Height 185.4 cm (6' 1") 05/08/2020 6:20 PM MEDICAL CONSULTANT Body Mass Index 55.68 05/08/2020 6:20 PM MEDICAL CONSULTANT documented in this encounter Discharge Summaries Lexy Medina MD - 05/09/2020 3:49 PM CST Internal Medicine Discharge Summary ADMIT DATE: 05/08/2020 DISCHARGE DATE: 05/09/2020 ATTENDING MD: Lexy Medina MD PCP: Te Taylor FINAL DIAGNOSIS: (the reason, after study, for admitting the patient to the hospital) Symptomatic cholelithiasis HOSPITAL COURSE: 59 y/o male presents with intermittent abdominal pain, biliary colic symptoms, nausea/vomiting that resulted in near syncope. General surgery evaluated patient and surgery is already scheduled in the future. No surgery this admission. COVID positive but no hypoxia, no pulmonary symptoms, stable. Seen and cleared for discharge by cardiology, general surgery and nephrology. Carotid duplex done with left side with 50-79% stenosis. Echo done, normal EF. Trops trended and negative. COVID positive. 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 Reyez next week Hx of type 2 DM, A1c 5.2, episodes of hypoglycemia Discontinue actos and glyburide Hypertension D/c quinipril due to CKD Continue atenolol Morbid Obesity Hypomagnesemia Replace Hypothyroidism Continue home dose T4 Placed in observation dvt proph SCD Full Code I called and updated Dr. Taylor his PCP who agreed with above medication changes. Informed patient. Discharge Instructions I spoke to Dr. Taylor your primary care and he was ok with the following medication changes. Please follow up your primary care in 1 week and repeat your labs (BMP) to follow up on your kidney function.I also recommend follow up with Dr. Uribe's nephrology group in 2-3 weeks. Discontinue all diabetic medications. Discontinue quinipril. Spent greater than 35 mins on discharge including chart review, evaluating patient, discussing with patient and/or family, discussing with nursing and/or consultants, discharge summary, reconciling home medications and evaluating labs and imaging. Exam: Constitutional: Morbidly obese, no acute distress General: A & O x 3 to person, place and situation Head: normocephalic, atraumatic Eyes: extraocular movements intact; no scleral icterus ENT: no rhinorrhea, moist mucus membranes Neck: supple, trachea midline Respiratory: unlabored, equal chest rise and clear to auscultation bilaterally Cardio: regular rate and rhythm, hemodynamically stable Abdomen: soft, nondistended, mildly tender to palpation in RUQ Extremities: DP and PT pulses 3+ bilaterally. No edema. Skin: no rashes or lesions CONSULTING SERVICES: Dr. Uribe -nephrology Dr. Flores - cardiology Dr. Blackburn - general surgery PROCEDURES: none SIGNIFICANT LAB/X-RAYS: LABS - reviewed pertinent labs as below: CBC BMP PT/INR WBC (10*3/L) Date Value 05/09/2020 5.97 NA (mmol/L) Date Value 05/09/2020 141 05/09/2020 141 No results found for: PT RBC (10*6/L) Date Value 05/09/2020 3.00 (L) K (mmol/L) Date Value 05/09/2020 5.4 (H) 05/09/2020 5.4 (H) No results found for: PTINR PLT (10*3/L) Date Value 05/09/2020 122 (L) CALCIUM (mg/dL) Date Value 05/09/2020 8.2 (L) 05/09/2020 8.2 (L) HGB (g/dL) Date Value 05/09/2020 8.9 (L) CL (mmol/L) Date Value 05/09/2020 113 (H) 05/09/2020 113 (H) aPTT HCT (%) Date Value 05/09/2020 28.7 (L) BUN (mg/dL) Date Value 05/09/2020 48 (H) 05/09/2020 48 (H) No results found for: APTTPAT CREATININE (mg/dL) Date Value 05/09/2020 1.87 (H) 05/09/2020 1.87 (H) IMAGING - reviewed Hospital Encounter on 05/08/20 US ABDOMEN LIMITED Narrative HISTORY: RUQ Abdominal pain. Rule out cholecystitis. TECHNIQUE: Gallbladder as well as liver were evaluated in multiple planes with the patient in different positions. Color imaging is utilized. FINDINGS: This examination is quite limited due to large body habitus of the patient and inability of the patient to cooperate. Gallbladder is of normal size and shape with large amount of biliary sludge, small biliary crystals and small gallstones. No free fluid detected in pericholecystic space. Common hepatic duct is 4.5 mm. Hepatic and portal venous system appeared patent. Liver is 16.7 cm and is poorly visualized. Increased echotexture of the liver parenchyma, suggestive of hepatic steatosis. CONCLUSION: Limited study. Chronic cholecystitis with small gallstones, biliary sludge and biliary crystals visualized. Common hepatic duct is of normal size. XR CHEST 1 VW Narrative CHEST PORTABLE ONE VIEW HISTORY:Shortness of breath TECHNIQUE: Frontal, portable projection of the chest is obtained. COMPARISON: 10/16/2017 FINDINGS: Increased pulmonary vascularity and interstitial lung markings are seen. Heart size is enlarged. Blunting of left costophrenic angle is noted. CONCLUSIONS: 1. Pulmonary edema, cardiomegaly and left pleural effusion ITEMS FOR FOLLOW UP PROVIDER: (including pending labs/cultures/studies, anticipated problems, etc.) BMP FUNCTIONAL STATUS: fully ambulatory DISCHARGE CONDITION: fair COGNITIVE STATUS: cognitively intact DIET: diabetic and renal ACTIVITY: as tolerated DISCHARGE MEDICATIONS: Current Discharge Medication List START taking these medications Details hydroCHLOROthiazide (ESIDRIX) 12.5 mg Take 12.5 mg by mouth daily. Qty: 30 capsule, Refills: 0 Start date: 05/09/2020, End date: 06/08/2020 Associated Diagnoses: Biliary colic Magnesium Oxide (MAOX) 400 mg Take 400 mg by mouth daily. Qty: 30 tablet, Refills: 0 Start date: 05/09/2020, End date: 06/08/2020 Associated Diagnoses: Biliary colic sodium polystyrene sulfonate (KAYEXALATE) 15 g Take 15 g by mouth 2 (two) times weekly on Tuesday andTuesday. Qty: 480 mL, Refills: 0 Start date: 05/12/2020, End date: 06/11/2020 Associated Diagnoses: Biliary colic zinc sulfate (ORAZINC) 220 mg Take 220 mg by mouth daily. Qty: 14 capsule, Refills: 0 Start date: 05/09/2020, End date: 05/23/2020 Associated Diagnoses: Biliary colic CONTINUE these medications which have CHANGED Details ergocalciferol (vitamin d2) (CALCIFEROL) 50,000 Units Take 50,000 Units by mouth weekly. Qty: 4 capsule, Refills: 2 Start date: 05/09/2020, End date: 08/07/2020 Associated Diagnoses: Biliary colic sodium bicarbonate (ANTACID (SODIUM BICARBONATE)) 1,300 mg Take 1,300 mg by mouth 2 (two) times daily. Qty: 120 tablet, Refills: 0 Start date: 05/09/2020, End date: 06/08/2020 Associated Diagnoses: Biliary colic CONTINUE these medications which have NOT CHANGED Details atenoloL (TENORMIN) 25 mg Take 25 mg by mouth daily. calcitrioL (ROCALTROL) 0.25 mcg Take 0.25 mcg by mouth daily. montelukast (SINGULAIR) 10 mg Take 10 mg by mouth. nitroglycerin (NITRO-TIME ORAL) Take by mouth. tamsulosin HCl (TAMSULOSIN ORAL) 0.4 mg Take 0.4 mg by mouth. aspirin 81 mg Take 81 mg by mouth daily. gemfibroziL (LOPID) 600 mg Take 600 mg by mouth 2 (two) times daily before breakfast and dinner. LEVOTHYROXINE SODIUM (SYNTHROID ORAL) 225 mcg Take 225 mcg by mouth daily. phentermine 37.5 mg Take 37.5 mg by mouth every morning. traMADoL (ULTRAM) 50 mg Take 50 mg by mouth every 8 (eight) hours as needed for Pain (scale 1-3), Pain (scale 4-6) or Pain (scale 7-10). STOP taking these medications Calcium Carbonate 648 mg Comments: Reason for Stopping: quinapril HCl (QUINAPRIL ORAL) Comments: Reason for Stopping: glyBURIDE (DIABETA) 10 mg Comments: Reason for Stopping: pioglitazone (ACTOS) 45 mg Comments: Reason for Stopping: PATIENT EDUCATION PROVIDED: medications DISCHARGE: home self care documented in this encounter Discharge Instructions AttachmentsThe following attachments cannot be sent through Care Everywhere. Convalescent Plasma Donation for COVID-19 ([place]yan)Coronavirus Disease 2019 (COVID-19)- Overview (Kenyan)Ergocalciferol, Vitamin D2 tablets or capsules (Kenyan)Sodium Bicarbonate tablets (Kenyan)Sodium Polystyrene Sulfonate powder for reconstitution to suspension ([place]yan)Hydrochlorothiazide, HCTZ capsules or tablets (Kenyan)Balancing Calcium and Phosphorus, Kidney Disease (Kenyan) Choosing the Right Protein for Your Body, Kidney Disease (Kenyan)documented in this encounter Progress Notes Zuleyma Guillen LMSW - 05/09/2020 2:20 PM CSTSummary: Inpatient Scheduling Attempted to contact patient to assist with scheduling hospital follow up appointments. LVM to return call. Will attempt again at a later time. Zuleyma Guillen LMSW Certified Endoscopy Technician - Community Wellness and Outreach Community and Population Health Eden Sierra LBSW - 05/09/2020 11:09 AM CSTSubjective Patient ID: Tyson Addison is a 59 year old male. Care Management Social Functional Assessment Patient Name: Tyson Addison Age: [age] year old Sex: male Patient's Previous Admission Date at [facility]: 10/13/2017 Current diagnosis and co-morbidities: COVID Readmission Questions: Was patient discharged from any acute care hospital within the last 30 days: No Social Functional Assessment: Primary language spoken/preferred: Kenyan Mental Status: Alert & Oriented to Person,Place & Time Information given by: Self Patient's support system: Spouse Name and number of support system: Sharron Addison, Primary Robotics Mechanic: Self MPOA: No Living Arrangement: Home Address of living arrangement : [address] [place] [id number] Persons living in home: Self;Spouse Barriers to returning home: None Baseline functional status- ambulation: Independent Functional status-baseline personal care: Independent Baseline functional status- driving: Independent Baseline functional status- grocery shopping: Independent Functional status-baseline housekeeping: Independent Functional status-baseline meal prep: Independent Current functional status same as prior: Yes Do you have a PCP?: Yes Name of PCP: Dr. Taylor Home Health Care Agency: No Provider Services: No DME Company: No Equipment: None Hemodialysis: No Community resources utilized: None Funding Resources: Commercial Prescription coverage plan: [facility] Pharmacy where meds are filled: Other Other pharmacy: [facility] Anticipated services prior to disharge: Continue Medical Eval Expected mode of discharge transportation: Same as support system Additional Recommendations for DC: medidcal clearance Additional info required for discharge planning: Pending medical evaluation Recommended discharge plan: Home SFA Complete: Social Functional Assessment complete: Yes Alcohol Use Screening (AUDIT-C) How often do you have a drink containing alcohol?: Never SCORE: 0 Did patient elect to have resources provided: No Role of Care Management explained. Any issues or concerns with obtaining/affording your medications at home: no. Are you or your support system able to picker packer medications at discharge: yes. Review of Systems Objective Physical Exam Assessment/Plan Home with ADRIANNE Mathews Certified Endoscopy Technician - Care Management [facility] [phone] [email or web address] CAL CONSULTANT documented in this encounter Consult Notes Eloise Gomez MD - 05/09/2020 1:59 PM CST Nephrology Consult note CC Abdominal pain Reason for consult CKD , acidosis , hyperkalemia HPI A 59 Y/o man with PMHx of DM, CKD III baseline CR 1.8, chronic hyperkalemia , HTN , CAD and hypothyroidism Pt presented for abdominal pain and SOB Patient with cholecystitis , was schedule for elective cholecystectomy on 05/15 , patient presented to ER yesterday with pain , tested costive for COVID Labs Cr 1.8, bicarb 18, K 6.2 ROS General : denies fever, chills, WT change weakness, insomnia HEENT: Denies dry, vision changes and headache Resp: have mild SOB, Denied cough or wheezes Cardiovascular: : denies chest pain, palpitation GI: have abdominal pain, denied diarrhea or constipation : denies dysuria, urgency, foamy urine or blood tinged urine Muscloskeltal: denies muscle aches, joint pain Endo: denies polyuria and and polydipsia Extre: denies pain numbness and swelling Past Medical History: Diagnosis Date Arthritis Asthma Cataracts, bilateral CKD (chronic kidney disease) Diverticulitis 2019 Hypertension Hypothyroidism NV (myocardial infarction) 2001 X2 Migraine Stroke 2009 Type 2 diabetes mellitus Past Surgical History: Procedure Laterality Date APPENDECTOMY Bilateral Open INCISION AND DRAINAGE Neck, both arms Family History Problem Relation Age of Onset Prostate Cancer Father Social History Socioeconomic History Marital status: Spouse [...] file Gets together: Not on file Attends yazdanism service: Not on file Active member of [...] file Social History Narrative Not on file Allergies Allergen Reactions Penicillins Rash and Anaphylaxis Sulfur Hives Codeine Rash Diazepam Anxiety Sulfa (Sulfonamide Antibiotics) Rash Current Discharge Medication List STOP taking these medications atenoloL 25 mg tablet Comments: Reason for Stopping: calcitrioL 0.25 mcg capsule Comments: Reason for Stopping: Calcium Carbonate 260 mg calcium (648 mg) Tab Comments: Reason for Stopping: ergocalciferol, vitamin D2, (VITAMIN D ORAL) Comments: Reason for Stopping: ergocalciferol, vitamin d2, 1,250 mcg (50,000 unit) capsule Comments: Reason for Stopping: montelukast 10 mg tablet Comments: Reason for Stopping: nitroglycerin (NITRO-TIME ORAL) Comments: Reason for Stopping: quinapril HCl (QUINAPRIL ORAL) Comments: Reason for Stopping: SODIUM BICARBONATE ORAL Comments: Reason for Stopping: tamsulosin HCl (TAMSULOSIN ORAL) Comments: Reason for Stopping: aspirin 81 mg chewable tablet Comments: Reason for Stopping: gemfibrozil 600 mg tablet Comments: Reason for Stopping: glyBURIDE 5 mg tablet Comments: Reason for Stopping: LEVOTHYROXINE SODIUM (SYNTHROID ORAL) Comments: Reason for Stopping: phentermine 37.5 mg capsule Comments: Reason for Stopping: pioglitazone 45 mg tablet Comments: Reason for Stopping: traMADOL 50 mg tablet Comments: Reason for Stopping: Current Facility-Administered Medications: albuterol (VENTOLIN) inhaler 2 Puff, 2 Puff, Inhalation, Q4HPRN, Mariola Johnson MD ascorbic acid (vitamin C) (VITAMIN C) tablet 500 mg, 500 mg, Oral, BID, Mariola Johnson MD, 500mg at 05/09/20 09 aspirin chewable tablet 81 mg, 81 mg, Oral, DAILY, Mariola Johnson MD, 81 mg at 05/09/20 0911 atenoloL (TENORMIN) tablet 25 mg, 25 mg, Oral, DAILY, Mariola Johnson MD, 25 mg at 05/09/20 0911 calcitrioL (ROCALTROL) capsule 0.25 mcg, 0.25 mcg, Oral, DAILY, Mariola Johnson MD, 0.25 mcg at107/10/19 0911 dextrose 50 % in water (D50W) injection 25 mL, 25 mL, Slow IV Push, PRN, Mariola Johnson MD ergocalciferol (vitamin d2) (CALCIFEROL) capsule 50,000 Units, 50,000 Units, Oral, TWICE WEEKLY, Mariola Johnson MD furosemide (LASIX) injection 20 mg, 20 mg, IV Push, ONCE, Lexy Medina MD [START ON 05/10/2020] furosemide (LASIX) injection 20 mg, 20 mg, IV Push, DAILY, Lexy Medina MD gemfibroziL (LOPID) tablet 600 mg, 600 mg, Oral, BIDAC, Mariola Johnson MD, 600 mg at 05/09/20 0911 glucagon (GLUCAGEN DIAGNOSTIC KIT) injection 1 mg, 1 mg, Intramuscular, PRN, Mariola Johnson MD guaiFENesin 100 mg/5 mL solution 200 mg, 200 mg, Oral, Q4HPRN, Mariola Johnson MD levothyroxine (SYNTHROID) tablet 225 mcg, 225 mcg, Oral, QAM-0600, Mariola Johnson MD, 225 mcg at 05/09/20 0630 Sliding Scale Insulin-Regular + Fsbg Testing, , Subcutaneous, AC, Mariola Johnson MD, Stopped at 05/09/20 0730 sodium bicarbonate (ANTACID (SODIUM BICARBONATE)) tablet 650 mg, 650 mg, Oral, QID, Eloise Gomez MD zinc sulfate (ORAZINC) capsule 220 mg, 220 mg, Oral, TID, Mariola Johnson MD, 220 mg at 05/09/20 0911 acetaminophen (TYLENOL) tablet 650 mg, 650 mg, Oral, Q6HPRN, Jr Lloyd MD HYDROcodone-acetaminophen (NORCO 5) 5-325 mg tablet 1 tablet, 1 tablet, Oral, Q6HPRN, Jr Lloyd MD, 1 tablet at 05/09/20 0513 morpHINE injection 4 mg, 4 mg, Slow IV Push, Q4HPRN, Jr Lloyd MD BP 127/52 | Pulse 77 | Temp 36.6 C (97.8 F) | Resp 17 | Ht 1.854 m (6' 1") | Wt 191.4 kg (422 lb) | SpO2 95% | BMI 55.68 kg/m Physical exam General: AAOX3, NAD , Obese Neck: supple, no elevated Chest: CTAB, no, rales or wheezes Herat: RRR, Normal S1,2 Abd: Soft, mild tenderness Extremities: No edmea CBC WBC (10*3/L) Date Value 05/09/2020 5.97 RBC (10*6/L) Date Value 05/09/2020 3.00 (L) PLT (10*3/L) Date Value 05/09/2020 122 (L) HGB (g/dL) Date Value 05/09/2020 8.9 (L) HCT (%) Date Value 05/09/2020 28.7 (L) CMP NA (mmol/L) Date Value 05/09/2020 141 05/09/2020 141 K (mmol/L) Date Value 05/09/2020 5.4 (H) 05/09/2020 5.4 (H) CALCIUM (mg/dL) Date Value 05/09/2020 8.2 (L) 05/09/2020 8.2 (L) CL (mmol/L) Date Value 05/09/2020 113 (H) 05/09/2020 113 (H) BUN (mg/dL) Date Value 05/09/2020 48 (H) 05/09/2020 48 (H) CREATININE (mg/dL) Date Value 05/09/2020 1.87 (H) 05/09/2020 1.87 (H) GLUCOSE (mg/dL) Date Value 05/09/2020 121 (H) 05/09/2020 121 (H) CO2 TOTAL (mmol/L) Date Value 05/09/2020 18 (L) 05/09/2020 18 (L) ALBUMIN (g/dL) Date Value 05/09/2020 3.4 (L) T PROTEIN (g/dL) Date Value 05/09/2020 6.2 (L) TOTAL BILI (mg/dL) Date Value 05/09/2020 0.4 BILI UNCON (mg/dL) Date Value 04/17/2020 0.3 BILI CONJ (mg/dL) Date Value 04/17/2020 0.0 ALT(SGPT) (U/L) Date Value 10/14/2017 28 ALTv (U/L) Date Value 05/09/2020 15 AST(SGOT) (U/L) Date Value 05/09/2020 24 ALK PHOS (U/L) Date Value 05/09/2020 120 Assessment and plan 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 He was recently evaluated forGallbladder issues and scheduled to have a cholecystomy on 05/15 in [place] but pain not controlled with tramadol(last taken at 11am) pain 10 at this time. inh Quijano DO - 05/08/2020 1:42 PM CST EMERGENCY DEPARTMENT ENCOUNTER [facility] Patient Name: Tyson Addison Date of : 1960 59 year old Exam Room:TX3/TX3 Primary Care Physician: Te Taylor [facility]- [facility] Patient Escorted by: Self [9] Mode of Arrival: EMS - [facility] ([place]) [43] EMS Treatment Prior to ED Arrival: GLASS UNLOADING EQUIPMENT TENDER treatment: Saline lock GLASS UNLOADING EQUIPMENT TENDER treatment comments: Tramadol Chief Complaint Chief Complaint Patient presents with Abdominal Pain RUQ Shortness of Breath Fatigue HPI 59-year-old male presenting with right upper quadrant abdominal pain. Patient has a known history of cholelithiasis and biliary colic. Patient has been seen and evaluated by Dr. Blackburn and additionally Dr. Ornelas and Blaze. Patient is scheduled for cholecystectomy next Tuesday. Patient states that he could not wait till that point so he presented for evaluation. He has no fever. He is tolerating p.o. He has a history of CKD and hyperkalemia. Past Medical History / Immunizations Past Medical History: Diagnosis Date Arthritis Asthma Cataracts, bilateral CKD (chronic kidney disease) Diverticulitis 2019 Hypertension Hypothyroidism NV (myocardial infarction) 2001 X2 Migraine Stroke 2009 Type 2 diabetes mellitus Tetanus received in [...] Review of Systems Review of Systems Constitutional: Negative for activity change, appetite change, chills, diaphoresis and fever. HENT: Negative for sore throat and voice change. Eyes: Negative for pain and visual disturbance. Respiratory: Negative for cough, chest tightness and shortness of breath. Cardiovascular: Negative for chest pain and leg swelling. Gastrointestinal: Positive for abdominal pain. Negative for blood in stool, constipation and diarrhea. Genitourinary: Negative for dysuria, urgency and difficulty urinating. Musculoskeletal: Negative for back pain. Skin: Negative for color change, rash and wound. Neurological: Negative for dizziness and headaches. Hematological: Does not bruise/bleed easily. Physical Exam BP 97/65 | Pulse 70 | Temp 36.4 C (97.6 F) (Oral) | Resp 15 | Ht 1.854 m (6' 1") | Wt 188.2kg (415 lb) | SpO2 99% | BMI 54.75 kg/m Physical Exam Vitals signs and nursing note reviewed. Constitutional: Appearance: He is well-developed. HENT: Head: Normocephalic and atraumatic. Eyes: General: [...] 24 hour(s)) CBC WITH DIFF Collection Time: 05/08/20 3:08 PM Result Value Ref Range WBC 5.50 4.20 - 10.70 10*3/L RBC 2.91 (L) 4.26 - 5.52 10*6/L HGB 8.7 (L) 12.2 - 16.4 g/dL HCT 27.8 (L) 38.4 - 49.3 % MCV 95.5 81.7 - 95.6 fL MCH 29.9 26.1 - 32.7 pg MCHC 31.3 31.2 - 35.0 g/dL RDW-SD 56.0 (H) 38.5 - 51.6 fL RDW-CV 15.9 (H) 12.1 - 15.4 % PLT 117 (L) 150 - 328 10*3/L MPV 12.1 9.8 - 13.0 fL NRBC/100 WBC 0.0 0.0 - 10.0 /100 WBCs NRBC x10^3 <0.01 10*3/L GRAN MAT (NEUT) % 63.4 % IMM GRAN % 0.40 % LYMPH % 16.9 % MONO % 8.4 % EOS % 10.4 % BASO % 0.5 % GRAN MAT x10^3(ANC) 3.49 1.99 - 6.95 10*3/uL IMM GRAN x10^3 <0.03 0.00 - 0.06 10*3/uL LYMPH x10^3 0.93 (L) 1.09 - 3.23 10*3/uL MONO x10^3 0.46 0.36 - 1.02 10*3/uL EOS x10^3 0.57 (H) 0.06 - 0.53 10*3/uL BASO x10^3 0.03 0.01 - 0.09 10*3/uL COMP. METABOLIC PANEL (22401) Collection Time: 05/08/20 3:08 PM Result Value Ref Range NA 141 135 - 145 mmol/L K 6.2 (HH) 3.5 - 5.0 mmol/L CL 116 (H) 98 - 108 mmol/L CO2 TOTAL 17 (L) 23 - 31 mmol/L AGAP 8 2 - 16 BUN 46 (H) 7 - 23 mg/dL GLUCOSE 143 (H) 70 - 110 mg/dL CREATININE 1.82 (H) 0.60 - 1.25 mg/dL TOTAL BILI 0.3 0.1 - 1.1 mg/dL CALCIUM 8.2 (L) 8.6 - 10.6 mg/dL T PROTEIN 6.2 (L) 6.3 - 8.2 g/dL ALBUMIN 3.5 3.5 - 5.0 g/dL ALK PHOS 139 (H) 34 - 122 U/L ALTv 15 5 - 50 U/L AST(SGOT) 23 13 - 40 U/L eGFR Calculation (Non-) 38.2 mL/min/1.73m2 eGFR Calculation () 46.3 mL/min/1.73m2 BILIRUBIN TOTAL Collection Time: 05/08/20 3:08 PM Result Value Ref Range TOTAL BILI 0.4 0.1 - 1.1 mg/dL COVID-19 (ID NOW RAPID TESTING) Collection Time: 05/08/20 3:08 PM Specimen: NASOPHARYNGEAL SWAB Result Value Ref Range SARS-CoV-2 Rapid ID NOW Positive (A) Not Detected Imaging Hospital Encounter on 05/08/20 US ABDOMEN LIMITED Narrative HISTORY: RUQ Abdominal pain. Rule out cholecystitis. TECHNIQUE: Gallbladder as well as liver were evaluated in multiple planes with the patient in different positions. Color imaging is utilized. FINDINGS: This examination is quite limited due to large body habitus of the patient and inability of the patient to cooperate. Gallbladder is of normal size and shape with large amount of biliary sludge, small biliary crystals and small gallstones. No free fluid detected in pericholecystic space. Common hepatic duct is 4.5 mm. Hepatic and portal venous system appeared patent. Liver is 16.7 cm and is poorly visualized. Increased echotexture of the liver parenchyma, suggestive of hepatic steatosis. CONCLUSION: Limited study. Chronic cholecystitis with small gallstones, biliary sludge and biliary crystals visualized. Common hepatic duct is of normal size. Orders and Treatments Orders Placed This Encounter Procedures US ABDOMEN LIMITED CBC WITH DIFF COMP. METABOLIC PANEL (71223) BILIRUBIN TOTAL COVID-19 (ID NOW RAPID TESTING) LAB ONLY COVID INTERPRETATION CONSULT NEPHROLOGY Orders Placed This Encounter Medications morpHINE injection 4 mg ondansetron (ZOFRAN (PF)) injection 4 mg insulin regular human (HUMULIN R) injection 10 Units dextrose 50 % in water (D50W) injection 50 mL furosemide (LASIX) injection 40 mg DISCONTD: sodium polystyrene sulfonate (KAYEXALATE) 15 gram/60 mL suspension 30 g sodium polystyrene sulfonate (KAYEXALATE) 15 gram/60 mL suspension 15 g Procedures See ED Procedure Note Notes & MDM Patient was evaluated for an emergency medical condition related to Abdominal Pain (RUQ), Shortness of Breath, and Fatigue . Differential diagnoses considered by presenting complaints but not limited to: Hyperkalemia, metabolic derangements, coronavirus, cholelithiasis, biliary colic, cholecystitis, andothers.. ED Course as of May 08 172 Marj May 08, 2020 1607 CREATININE(!): 1.82 [PS] 1607 BUN(!): 46 [PS] 1601 SARS-CoV-2 Rapid ID NOW(!): Positive [PS] ED Course User Index [PS] Binh Quijano DO Labs:were ordered, and resulted, any relevant abnormalities were considered. Imaging:Ordered, and resulted, any relevant abnormalities were considered. IV fluids: not indicated Procedures:were not performed. EKG: Time 1557. Rate 69. Normal sinus rhythm, normal axis, normal intervals, normal ST segments. Mildly elevated T waves consistent with hyperkalemia. Interpreted. Rhythm Strip Interpretation: 70 Normal Sinus Rhythm Pulse Oximetry room air Assessment: 59-year-old male presenting with right upper quadrant pain. He has no fever or leukocytosis. Rightupper quadrant ultrasound demonstrates chronic cholecystitis. Incidentally he had hyperkalemia witha potassium of 6.2. EKG was done which showed peaked T waves so we initiated treatment with insulin glucose as well as Lasix. History, physical exam findings, results of visit, differential diagnosis, medication regimens and plan of future care have been considered. Additional MDM may be found in the ED course. Differential diagnosis considered and final disposition made based on information gathered during evaluation and may not be completely ruled out or specifically listed. Vital signs were rechecked before final disposition and determined to be expected for patient's clinical condition.. Diagnosis ICD-10-CM ICD-9-CM 1. Biliary colic K80.50 574.20 2. Hyperkalemia E87.5 276.7 3. COVID-19 U07.1 079.89 Disposition & Follow Up ED Disposition ED Disposition Condition Comment Admit - Observation Stable Is this patient COVID positive or a patient under investigation (PUI)?: Yes Treatment Team: [facility] [[id number]] Primary reason for admission: COVID-19 [[id number]] Secondary reason for admission: Hyperkalemia [372203] Is (or was) this a planned re-a dmission?: No Patient's Medications START taking these medications No [...] (1,000 UNIT) TABLET Take 1,000 Units by mouth. ERGOCALCIFEROL, VITAMIN D2, (VITAMIN D ORAL) Take by mouth. ERGOCALCIFEROL, VITAMIN D2, 1,250 MCG (50,000 UNIT) CAPSULE Take 50,000 Units by mouth 2 (two) times per week. GEMFIBROZIL 600 MG TABLET Take 600 mg by mouth 2 (two) times daily before breakfast and dinner. GLYBURIDE 5 MG TABLET Take 10 mg by mouth daily with breakfast. HYDROXYCHLOROQUINE 200 MG TABLET LEVOTHYROXINE SODIUM (SYNTHROID ORAL) Take 225 mcg [...] taking these medications No medications on file Binh Quijano DO 05/08/2020 5:24 PM ACTIVE COVID-19 PANDEMIC. documented in this encounter Miscellaneous Notes Care Plan - Sheri Ha RN - 05/09/2020 4:03 AM MEDICAL CONSULTANT Problem: Discharge Planning Goal: Absence of venous thromboembolism Outcome: Progressing as expected Goal: Adequate for discharge Outcome: Progressing as expected Goal: Effective communication Outcome: Progressing as expected Problem: Pain Goal: Control of pain at or below patient's documented comfort goal Outcome: Progressing as expected Goal: Reduction in pain sensation Outcome: Progressing as expected Problem: Falls, Risk of Goal: Absence of falls Outcome: Progressing as expected CAL CONSULTANT documented in this encounter Plan of Treatment Date Type Specialty Care Team Description 05/15/2020 Hospital Ambulatory Yue Reyez MD Symptomatic Encounter Surgical [address] [place], [place] [address] [address] Name Type Priority Associated Diagnoses Date/Ti me LAB ONLY COVID LAB Routine Biliary colic 05/08/2020 3:08 PM INTERPRETATION MEDICAL CONSULTANT Name Type Priority Associated Diagnoses Order S chedule LAB ONLY COVID LAB Routine Biliary colic ONCE for 1 O ccurrences INTERPRETATION starting 04/29 until 0 PROTHROMBIN TIME / INR LAB Routine EVERY MORNING AT 0400 for 1 Days star ting 05/10/2020 unti l 05/10/2020 COMP. METABOLIC PANEL LAB Add-on EVERY MORNING AT 0400 (27817) for 3 Days star ting 05/10/2020 unti l 05/12/2020 CBC WITH DIFF LAB Routine EVERY MORNING AT 0400 for 5 Days star ting 05/10/2020 unti l 05/14/2020 TROPONIN I LAB Add-on EVERY 6 HOURS ( START TIME ADJUSTABLE ) START TIME ADJUSTABLE for 11 Occurrences sta rting 05/09/2020 unti l 05/11/2020, 1 c ompleted Health Maintenance Due Date Last Done Comments [...] VACCINE (#1) 2020 Depression Screening 04/14/2021 04/14/2020 LDL-C 04/17/2021 04/17/2020, 10/14/2017 CREATININE (SERUM) 05/08/2021 05/08/2020, 05/08/2020, 04/17/2020, Additional history exists PNEUMOCOCCAL 0-64 YEARS Aged Out No longe r eligible COMBINED SERIES based on patient 's age to complete this topic documented as of this encounter Procedures Procedure Name Priority Date/Time Associated Diagnosis Comme nts POCT GLUCOSE Routine 05/09/2020 12:19 Results for this (AUTOMATED) PM MEDICAL CONSULTANT procedure are i n the results section. POCT GLUCOSE Routine 05/09/2020 9:21 Results for this (AUTOMATED) AM MEDICAL CONSULTANT procedure are i n the results section. CAROTID DUPLEX Routine 05/09/2020 8:52 BILATERAL BY AM MEDICAL CONSULTANT VASCULAR LAB ECHO ROUTINE Routine 05/09/2020 8:14 Syncope, unspecified W/DOPPLER COLOR AM MEDICAL CONSULTANT syncope type XR CHEST 1 VW Routine 05/09/2020 7:45 COVID-19 Results fo r this AM MEDICAL CONSULTANT procedure are i n the results section. D-DIMER Routine 05/09/2020 6:30 Results for this AM MEDICAL CONSULTANT procedure are i n the results section. N-TERMINAL PRO-BNP Add-on 05/09/2020 5:18 Resul ts for this AM MEDICAL CONSULTANT procedure are i n the results section. GLYCOSYLATED [place] Add-On 05/09/2020 5:18 Results for this HEMOGLOBIN (A1C) AM MEDICAL CONSULTANT procedure a re in the results section. CBC WITH DIFF Routine 05/09/2020 5:18 Results fo r this AM MEDICAL CONSULTANT procedure are i n the results section. COMP. METABOLIC Add-on 05/09/2020 5:18 Results for this PANEL (61403) AM MEDICAL CONSULTANT procedure are in the results section. BASIC METABOLIC Routine 05/09/2020 5:18 Results for this PANEL (NA, K, CL, AM MEDICAL CONSULTANT procedure are in CO2, GLUCOSE, BUN, the resul ts CREATININE, CA) section. TROPONIN I Add-on 05/09/2020 5:18 Results for this AM MEDICAL CONSULTANT procedure are i n the results section. MAGNESIUM [place] Add-On 05/09/2020 5:18 Results for this AM MEDICAL CONSULTANT procedure are i n the results section. URIC ACID [place] Add-On 05/09/2020 5:18 Results for this AM MEDICAL CONSULTANT procedure are i n the results section. POCT GLUCOSE Routine 05/09/2020 4:57 Results for this (AUTOMATED) AM MEDICAL CONSULTANT procedure are i n the results section. POCT GLUCOSE Routine 05/09/2020 1:14 Results for this (AUTOMATED) AM MEDICAL CONSULTANT procedure are i n the results section. POCT GLUCOSE Routine 05/08/2020 8:53 Results for this (AUTOMATED) PM MEDICAL CONSULTANT procedure are i n the results section. N-TERMINAL PRO-BNP [place] Add-On 05/08/2020 8:11 Resul ts for this PM MEDICAL CONSULTANT procedure are i n the results section. BASIC METABOLIC Routine 05/08/2020 8:11 Results for this PANEL (NA, K, CL, PM MEDICAL CONSULTANT procedure are in CO2, GLUCOSE, BUN, the resul ts CREATININE, CA) section. TROPONIN I Add-on 05/08/2020 8:11 Results for this PM MEDICAL CONSULTANT procedure are i n the results section. FERRITIN SERUM [place] Add-On 05/08/2020 8:11 Results f or this PM MEDICAL CONSULTANT procedure are i n the results section. CREATINE KINASE [place] Add-On 05/08/2020 8:11 Results for this PM MEDICAL CONSULTANT procedure are i n the results section. POCT GLUCOSE Routine 05/08/2020 7:43 Results for this (AUTOMATED) PM MEDICAL CONSULTANT procedure are i n the results section. POCT GLUCOSE Routine 05/08/2020 6:05 Results for this (AUTOMATED) PM MEDICAL CONSULTANT procedure are i n the results section. POCT GLUCOSE Routine 05/08/2020 5:33 Results for this (AUTOMATED) PM MEDICAL CONSULTANT procedure are i n the results section. HB ECG ROUTINE & STAT 05/08/2020 3:57 Hyperkalemia RHYTHM STRIP PM MEDICAL CONSULTANT COVID-19 (ID NOW STAT 05/08/2020 3:08 Biliary colic Result s for this RAPID TESTING) PM MEDICAL CONSULTANT procedure are in the results section. CBC WITH DIFF STAT 05/08/2020 3:08 Biliary colic Results f or this PM MEDICAL CONSULTANT procedure are i n the results section. COMP. METABOLIC STAT 05/08/2020 3:08 Biliary colic Results for this PANEL ([id number]) PM MEDICAL CONSULTANT procedure are in the results section. BILIRUBIN TOTAL STAT 05/08/2020 3:08 Biliary colic Results for this PM MEDICAL CONSULTANT procedure are i n the results section. US ABDOMEN LIMITED STAT 05/08/2020 2:43 Biliary colic Resu lts for this PM MEDICAL CONSULTANT procedure are i n the results section. CONSENT/REFUSAL FOR Routine 05/08/2020 1:49 DIAGNOSIS AND PM MEDICAL CONSULTANT TREATMENT documented in this encounter Results POCT GLUCOSE (AUTOMATED) (05/09/2020 12:19 PM MEDICAL CONSULTANT) Pathologist Sig nature POCT GLU 115 (H) 70 - 110 mg/dL [facility] Specimen Blood Performing Organization Address [facility] Phone Number [facility] CLIA: [id number] [place] [address] POCT GLUCOSE (AUTOMATED) (05/09/2020 9:21 AM MEDICAL CONSULTANT) Pathologist Sig nature POCT GLU 86 70 - 110 mg/dL [facility] Specimen Blood Performing Organization Address City/[facility] Phone Number [facility] CLIA: [id number] [place] [address] XR CHEST 1 VW (05/09/2020 7:45 AM MEDICAL CONSULTANT) Specimen Narrative Performed At This result has an attachment that is no t available. CHEST PORTABLE ONE VIEW PACS/VR/DOSE HISTORY:Shortness of breath TECHNIQUE: Frontal, portable projection of the chest i s obtained. COMPARISON: 10/16/2017 FINDINGS: Increased pulmonary vascularity and interstitial lung markings are seen. Heart size is enlarged. Blunting of left costophrenic angle is noted. CONCLUSIONS: 1. Pulmonary edema, cardiomegaly and left pleural effu awilda Procedure Note [facility], Radiant Results Inft User - 2019 8:56 AM MEDICAL CONSULTANT CHEST PORTABLE ONE VIEW HISTORY:Shortness of breath TECHNIQUE: Frontal, portable projection of the chest is obtained. COMPARISON: 10/16/2017 FINDINGS: Increased pulmonary vascularity and inte rstitial lung markings are seen. Heart size is enlarged. Blunting of left costophrenic angle is noted. CONCLUSIONS: 1. Pulmonary edema, cardiomegaly and lef t pleural effusion Performing Organization Address [facility] Phone Number PACS/VR/DOSE D-DIMER (05/09/2020 6:30 AM MEDICAL CONSULTANT) [facility] D-DIMER 0.55 (H) <0.41 g/mL (FEU) [facility] Specimen Blood - ARM, RIGHT Narrative Performed At This test may be used in conjunction with a [facility] clinical pretest probability (PTP) assessment model to exclude venous thromboembolism (VTE) in patients suspected of deep venous thrombosis (DVT) and pulmonary embolism (PE) A D-Dimer value less than 0.50 g/ml (FEU) has a negative predicative value of 96 to 100% (95% CI)and 97 to 100% (95% CI) as an aid in the diagnosis of deep vein thrombosis (DVT) and pulmonary embolism when there is low or moderate pretest probability of PE or DVT. D-Dimer values are expressed in initial fibrinogen equivalent units (FEU)" The assay results should be used with other information, including the clinical context, in forming a diagnosis. Performing Organization Address [facility] Phone Number [facility] CLIA: [id number] [place], [place] [id number] LABORATORY [address] URIC ACID (05/09/2020 5:18 AM MEDICAL CONSULTANT) [facility] URIC ACID 6.3 3.6 - 8.0 mg/dL [facility] Specimen Blood - ARM, RIGHT Performing Organization Address [facility] Phone Number [facility] CLIA: [id number] [place] [address] MAGNESIUM (05/09/2020 5:18 AM MEDICAL CONSULTANT) Pathologist Sig nature MAGNESIUM 1.4 (L) 1.7 - 2.4 mg/dL [facility] Specimen Blood - ARM, RIGHT Performing Organization Address [facility] Phone Number [facility] CLIA: [id number] [place] [address] GLYCOSYLATED HEMOGLOBIN (A1C) (05/09/2020 5:18 AM MEDICAL CONSULTANT) Pathologist Sig nature HGB A1C 5.2 4.0 - 6.0 % [facility] Specimen Blood - ARM, RIGHT Narrative Performed At %A1C (NGSP) Interpretation (ADA) [facility] 4.8-5.6 Normal or (Non-Diabetic Ra nge) 5.7-6.4 Increased Risk (Pre-Diabet ic) >6.5 Diabetes Indicated Performing Organization Address [facility] Phone Number [facility] CLIA: [id number] [place] [address] N-TERMINAL PRO-BNP (05/09/2020 5:18 AM MEDICAL CONSULTANT) Pathologist Sig nature NT-proBNP 491 (H) <=125 pg/mL [facility] Specimen Blood - ARM, RIGHT Narrative Performed At Biotin has been reported to cause a negative [facility] bias, interpret results relative to patient's use of biotin. Performing Organization Address [facility] Phone Number [facility] CLIA: [id number] [place] [address] TROPONIN I (05/09/2020 5:18 AM MEDICAL CONSULTANT) Pathologist Sig nature TROPONIN I <0.012 <=0.034 ng/mL [facility] Specimen Blood - ARM, RIGHT Narrative Performed At Equal or Less than 0.034 ng/ml---Normal [facility] Note: Cardiac troponin begins to rise 3-4 hours after the onset of ischemia. Repeat in 4-6 hours if the sample was drawn within 3-4 hours of the onset of the symptom and found normal. Between 0.035 and 0.120 ng/mL--- Borderline. Questionable myocardial injury or necros is Note: Serial measurement may be necessary to confirm or exclude the diagnosis of myocardial injury or necrosis; Clinical correlation (symptoms, EKGs, imaging studies, and others) required; Repeat in 4-6 hours if clinically indicated. Equal or Higher than 0.121 ng/mL---Abnormal. Myocardial Injury or Necrosis Likely Biotin has been reported to cause a negative bias, interpret results relative to patient's use of biotin. Performing Organization Address City/State/Zipcode Phone Number [facility] CLIA: [id number] [place] [address] COMP. METABOLIC PANEL ([id number]) (05/09/2020 5:18 AM MEDICAL CONSULTANT) NA 141 135 - 145 [facility] mmol/L [facility] K 5.4 (H) 3.5 - 5.0 [facility] mmol/L [facility] CL 113 (H) 98 - 108 mmol/L [facility] CO2 TOTAL 18 (L) 23 - 31 mmol/L [facility] AGAP 10 2 - 16 [facility] BUN 48 (H) 7 - 23 mg/dL [facility] GLUCOSE 121 (H) 70 - 110 mg/dL [facility] CREATININE 1.87 (H) 0.60 - 1.25 [facility] mg/dL [facility] TOTAL BILI 0.4 0.1 - 1.1 mg/dL [facility] CALCIUM 8.2 (L) 8.6 - 10.6 [facility] mg/dL [facility] T PROTEIN 6.2 (L) 6.3 - 8.2 g/dL [facility] ALBUMIN 3.4 (L) 3.5 - 5.0 g/dL [facility] ALK PHOS 120 34 - 122 U/L [facility] ALTv 15 5 - 50 U/L [facility] AST(SGOT) 24 13 - 40 U/L [facility] eGFR Calculation 37.0 mL/min/1.73m2 [facility] (Non- [facility] [place]) eGFR Calculation 44.9 mL/min/1.73m2 [facility] Specimen Blood - ARM, RIGHT Narrative Performed At Association of Glomerular Filtration Rate (GFR) [facility] and Staging of Kidney Disease* [...] tests). Performing Organization Address City/State/Zipcode Phone Number [facility] CLIA: [id number] [place] [address] Basic Metabolic Panel (NA, K, CL, CO2, GLUCOSE, BUN, CREATININE, CA) (05/09/2020 5:18 AM MEDICAL CONSULTANT) NA 141 135 - 145 [facility] mmol/L [facility] K 5.4 (H) 3.5 - 5.0 [facility] mmol/L [facility] CL 113 (H) 98 - 108 mmol/L [facility] CO2 TOTAL 18 (L) 23 - 31 mmol/L [facility] AGAP 10 2 - 16 [facility] BUN 48 (H) 7 - 23 mg/dL [facility] GLUCOSE 121 (H) 70 - 110 mg/dL [facility] CREATININE 1.87 (H) 0.60 - 1.25 [facility] mg/dL [facility] CALCIUM 8.2 (L) 8.6 - 10.6 [facility] mg/dL [facility] eGFR Calculation 37.0 mL/min/1.73m2 [facility] (Non- HOSPITAL LABORATORY [place]) eGFR Calculation 44.9 mL/min/1.73m2 [facility] LABORATORY Specimen Blood - ARM, RIGHT Narrative Performed At Association of Glomerular Filtration Rate (GFR) [facility] LAB[facility]ATORY and Staging of Kidney Disease* [...] tests). Performing Organization Address City/State/Zipcode Phone Number [facility] CLIA: [id number] [place], [place] [id number] LABORATORY [address] CBC with Differential (05/09/2020 5:18 AM MEDICAL CONSULTANT) [facility] WBC 5.97 4.20 - 10.70 [facility] 10*3/L [facility] RBC 3.00 (L) 4.26 - 5.52 [facility] 10*6/L [facility] HGB 8.9 (L) 12.2 - 16.4 [facility] g/dL [facility] HCT 28.7 (L) 38.4 - 49.3 % [facility] MCV 95.7 (H) 81.7 - 95.6 fL [facility] MCH 29.7 26.1 - 32.7 pg [facility] MCHC 31.0 (L) 31.2 - 35.0 [facility] g/dL [facility] RDW-SD 55.9 (H) 38.5 - 51.6 fL [facility] RDW-CV 15.9 (H) 12.1 - 15.4 % [facility] PLT 122 (L) 150 - 328 [facility] 10*3/L HOSPITAL LAB[facility]ORY MPV 12.3 9.8 - 13.0 fL [facility] NRBC/100 WBC 0.0 0.0 - 10.0 /100 [facility] WBCs [facility] NRBC x10^3 <0.01 10*3/L [facility] GRAN MAT (NEUT) % 66.3 % [facility] IMM GRAN % 0.30 % [facility] LYMPH % 16.9 % [facility] MONO % 8.4 % [facility] EOS % 7.4 % [facility] BASO % 0.7 % [facility] GRAN MAT x10^3(ANC) 3.96 1.99 - 6.95 [facility] 10*3/uL HOSPITAL LABORATORY IMM GRAN x10^3 <0.03 0.00 - 0.06 [facility] 10*3/uL HOSPITAL LAB[facility]ORY LYMPH x10^3 1.01 (L) 1.09 - 3.23 [facility] 10*3/uL [facility]OS[facility]ITAL LAB[facility] MONO x10^3 0.50 0.36 - 1.02 [facility] 10*3/uL HOSPITAL LAB[facility] EOS x10^3 0.44 0.06 - 0.53 [facility] 10*3/uL [facility] BASO x10^3 0.04 0.01 - 0.09 [facility] 10*3/uL HOSPITAL LAB[facility]ORY Specimen Blood - ARM, RIGHT Performing Organization Address [facility]/Zipcode Phone Number [facility] CLIA: [id number] [place] [address] POCT GLUCOSE (AUTOMATED) (05/09/2020 4:57 AM MEDICAL CONSULTANT) Pathologist Sig nature POCT GLU 123 (H) 70 - 110 mg/dL [facility] LABOR[facility] Specimen Blood Performing Organization Address [facility] Phone Number [facility] CLIA: [id number] [place] [address] POCT GLUCOSE (AUTOMATED) (05/09/2020 1:14 AM MEDICAL CONSULTANT) Pathologist Sig nature POCT GLU 170 (H) 70 - 110 mg/dL [facility] Specimen Blood Performing Organization Address [facility] Phone Number [facility] CLIA: [id number] [place] [address] [address] POCT GLUCOSE (AUTOMATED) (05/08/2020 8:53 PM MEDICAL CONSULTANT) Pathologist [facility] POCT GLU 42 (LL) 70 - 110 mg/dL [facility] LABOR[facility] Specimen Blood Performing Organization Address [facility] Phone Number [facility] CLIA: [id number] [place] [address] LABORATORY [address] [facility] FERRITIN SERUM (05/08/2020 8:11 PM MEDICAL CONSULTANT) [facility] FERRITIN 176.0 18.0 - 464.0 ng/mL [facility] LABORATORY Specimen Blood - ARM, RIGHT Narrative Performed At Biotin has been reported to cause a negative [facility] bias, interpret results relative to patient's use of biotin. Performing Organization Address [facility] Phone Number [facility] CLIA: [id number] [place] [address] CREATINE KINASE (05/08/2020 8:11 PM MEDICAL CONSULTANT) [facility] CK 131 33 - 194 U/L [facility] LABOR[facility] Specimen Blood - ARM, RIGHT Performing Organization Address [facility] Phone Number [facility] CLIA: [id number] [place] [address] N-TERMINAL PRO-BNP (05/08/2020 8:11 PM MEDICAL CONSULTANT) [facility] NT-proBNP 540 (H) <=125 pg/mL [facility] LABOR[facility] Specimen Blood - ARM, RIGHT Narrative Performed At Biotin has been reported to cause a negative [facility] LABOR[facility] bias, interpret results relative to patient's use of biotin. Performing Organization Address City/[facility] Phone Number [facility] CLIA: [id number] [place] [address] TROPONIN I (05/08/2020 8:11 PM MEDICAL CONSULTANT) Pathologist Sig nature TROPONIN I <0.012 <=0.034 ng/mL [facility] LABOR[facility] Specimen Blood - ARM, RIGHT Narrative Performed At Equal or Less than 0.034 ng/ml---Normal [facility] Note: Cardiac troponin begins to rise 3-4 hours after the onset of ischemia. Repeat in 4-6 hours if the sample was drawn within 3-4 hours of the onset of the symptom and found normal. Between 0.035 and 0.120 ng/mL--- Borderline. Questionable myocardial injury or necros is Note: Serial measurement may be necessary to confirm or exclude the diagnosis of myocardial injury or necrosis; Clinical correlation (symptoms, EKGs, imaging studies, and others) required; Repeat in 4-6 hours if clinically indicated. Equal or Higher than 0.121 ng/mL---Abnormal. Myocardial Injury or Necrosis Likely Biotin has been reported to cause a negative bias, interpret results relative to patient's use of biotin. Performing Organization Address City/State/Zipcode Phone Number [facility] CLIA: [id number] [place] [address] LABORATORY [address] [facility] BASIC METABOLIC PANEL (NA, K, CL, CO2, GLUCOSE, BUN, CREATININE, CA) (05/08/2020 8:11 PM MEDICAL CONSULTANT) NA 143 135 - 145 [facility] mmol/L [facility] K 5.2 (H) 3.5 - 5.0 [facility] mmol/L [facility] CL 116 (H) 98 - 108 mmol/L [facility] CO2 TOTAL 18 (L) 23 - 31 mmol/L [facility] AGAP 9 2 - 16 [facility] BUN 47 (H) 7 - 23 mg/dL [facility] GLUCOSE 47 (LL) 70 - 110 mg/dL [facility] CREATININE 1.85 (H) 0.60 - 1.25 [facility] mg/dL [facility] CALCIUM 8.5 (L) 8.6 - 10.6 [facility] mg/dL [facility] eGFR Calculation 37.5 mL/min/1.73m2 [facility] (Non-[facility] LABORATORY [place]) eGFR Calculation 45.4 mL/min/1.73m2 [facility] LABORATORY Specimen Blood - ARM, RIGHT Narrative Performed At Association of Glomerular Filtration Rate (GFR) [facility] LABORATORY and Staging of Kidney Disease* + [...] abnormalities in imaging tests). Performing Organization Address [facility] Phone Number [facility] CLIA: [id number] [place], [place] [id number] LABORATORY [address] POCT GLUCOSE (AUTOMATED) (05/08/2020 7:43 PM MEDICAL CONSULTANT) Pathologist Sig nature POCT GLU 43 (LL) 70 - 110 mg/dL [facility] LABOR[facility] Specimen Blood Performing Organization Address [facility] Phone Number [facility] CLIA: [id number] [place], [place] [id number] LABORATORY [facility] [address] POCT GLUCOSE (AUTOMATED) (05/08/2020 6:05 PM MEDICAL CONSULTANT) Pathologist Sig nature POCT GLU 80 70 - 110 mg/dL [facility] LABOR[facility] Specimen Blood Performing Organization Address [facility] Phone Number [facility] CLIA: [id number] [place], [place] [id number] LABORATORY [address] [place] [address] Drive POCT GLUCOSE (AUTOMATED) (05/08/2020 5:33 PM MEDICAL CONSULTANT) Pathologist Sig nature POCT GLU 97 70 - 110 mg/dL [facility] LABORATORY Specimen Blood Performing Organization Address City/[facility]/Zipcode Phone Number [facility] CLIA: [id number] [place] [address] [place] [address] COVID-19 (ID NOW RAPID TESTING) (05/08/2020 3:08 PM MEDICAL CONSULTANT) [facility] SARS-CoV-2 Rapid ID Positive (A) Not Detected [facility] LABORATORY Specimen Swab - NASOPHARYNGEAL SWAB Narrative Performed At [facility] [facility] COVID-19 Assay is an isothermal nucleic [facility] acid amplification test intended for the qualitative detection of nucleic acid from SARS-CoV-2 viral RNA in nasopharyngeal (BILINGUAL SOCIAL WORKER) specimens. It is used under Emergency Use Authorization (EUA) by FDA. The limit of detection (LOD) of the assay is 125 Genome Equivalents/mL. A positive result is indicative of the presence of SARS-CoV-2 RNA. Clinical correlation with patient history and other diagnostic information is necessary to determine patient infection status. A negative (Not Detected) result does not preclude SARS-CoV-2 infection. In patients with clinical symptoms and other tests that are consistent with SARS-CoV-2 infection, negative results should be treated as presumptive negative and a new specimen should be tested with alternative PCR molecular test. Invalid: Please collect a new specimen for repeat patient testing if clinically indicated. Performing Organization Address [facility] Phone Number [facility] CLIA: [id number] [place] [address] BILIRUBIN TOTAL (05/08/2020 3:08 PM MEDICAL CONSULTANT) Pathologist Sig nature TOTAL BILI 0.4 0.1 - 1.1 mg/dL [facility] LABORATORY Specimen Blood - VENOUS Performing Organization Address City/[facility]/Zipcode Phone Number [facility] CLIA: [id number] [place] [address] [place] [address] COMP. METABOLIC PANEL (91127) (05/08/2020 3:08 PM MEDICAL CONSULTANT) Pathologist [facility] NA 141 135 - 145 [facility] mmol/L [facility] K 6.2 (HH) 3.5 - 5.0 [facility] mmol/L [facility] CL 116 (H) 98 - 108 mmol/L [facility] CO2 TOTAL 17 (L) 23 - 31 mmol/L [facility] AGAP 8 2 - 16 [facility] BUN 46 (H) 7 - 23 mg/dL [facility] GLUCOSE 143 (H) 70 - 110 mg/dL [facility] CREATININE 1.82 (H) 0.60 - 1.25 [facility] mg/dL [facility] TOTAL BILI 0.3 0.1 - 1.1 mg/dL [facility] CALCIUM 8.2 (L) 8.6 - 10.6 [facility] mg/dL [facility] T PROTEIN 6.2 (L) 6.3 - 8.2 g/dL [facility] ALBUMIN 3.5 3.5 - 5.0 g/dL [facility] ALK PHOS 139 (H) 34 - 122 U/L [facility] ALTv 15 5 - 50 U/L [facility] AST(SGOT) 23 13 - 40 U/L [facility] LABOR[facility]ORY eGFR Calculation 38.2 mL/min/1.73m2 [facility] (Non-[facility] LABORATORY [place]) eGFR Calculation 46.3 mL/min/1.73m2 [facility] () [facility] Specimen Blood - VENOUS Narrative Performed At Association of Glomerular Filtration Rate (GFR) [facility] LAB[facility] and Staging of Kidney Disease* + [...] tests). Performing Organization Address City/State/Zipcode Phone Number [facility] CLIA: [id number] [place] [address] CBC WITH DIFF (05/08/2020 3:08 PM MEDICAL CONSULTANT) [facility] Sig nature WBC 5.50 4.20 - 10.70 [facility] 10*3/L HOSPITAL LABORATORY RBC 2.91 (L) 4.26 - 5.52 [facility] 10*6/L [facility] HGB 8.7 (L) 12.2 - 16.4 [facility] g/dL [facility] HCT 27.8 (L) 38.4 - 49.3 % [facility] MCV 95.5 81.7 - 95.6 fL [facility] MCH 29.9 26.1 - 32.7 pg [facility] MCHC 31.3 31.2 - 35.0 [facility] g/dL [facility] RDW-SD 56.0 (H) 38.5 - 51.6 fL [facility] RDW-CV 15.9 (H) 12.1 - 15.4 % [facility] PLT 117 (L) 150 - 328 [facility] 10*3/L [facility] MPV 12.1 9.8 - 13.0 fL [facility] NRBC/100 WBC 0.0 0.0 - 10.0 /100 [facility] WBCs [facility] NRBC x10^3 <0.01 10*3/L [facility] GRAN MAT (NEUT) % 63.4 % [facility] IMM GRAN % 0.40 % [facility] LYMPH % 16.9 % [facility] MONO % 8.4 % [facility] EOS % 10.4 % [facility] BASO % 0.5 % [facility] GRAN MAT x10^3(ANC) 3.49 1.99 - 6.95 [facility] 10*3/uL [facility] IMM GRAN x10^3 <0.03 0.00 - 0.06 [facility] 10*3/uL HOSPITAL LABORATORY LYMPH x10^3 0.93 (L) 1.09 - 3.23 [facility] 10*3/uL HOSPITAL LABORATORY MONO x10^3 0.46 0.36 - 1.02 [facility] 10*3/uL HOSPITAL LABORATORY EOS x10^3 0.57 (H) 0.06 - 0.53 [facility] 10*3/uL HOSPITAL LABORATORY BASO x10^3 0.03 0.01 - 0.09 [facility] 10*3/uL [facility] Specimen Blood - VENOUS Performing Organization Address City/State/Zipcode Phone Number [facility] CLIA: [id number] [place] [address] US ABDOMEN LIMITED (05/08/2020 2:43 PM MEDICAL CONSULTANT) Specimen Narrative Performed At This result has an attachment that is no t available. HISTORY: RUQ Abdominal pain. Rule out cholecystitis. PACS/VR/DOSE TECHNIQUE: Gallbladder as well as liver were evaluated in multiple planes with the patient in different positions. Color imaging is utilized. FINDINGS: This examination is quite limited due to lar ge body habitus of the patient and inability of the patient to cooperate. Gallbladder is of normal size and shape with large mat unt of biliary sludge, small biliary crystals and small gallstones. N o free fluid detected in pericholecystic space. Common hepatic duct is 4.5 m m. Hepatic and portal venous system appeared patent. Liver is 16.7 cm and is poorly visualized. Increased e chotexture of the liver parenchyma, suggestive of hepatic steatosis. CONCLUSION: Limited study. Chronic cholecystitis with small gallstones, biliary sludge and biliary crystals visualized. Common hepatic duct is of normal size. Procedure Note [facility], Radiant Results Inft User - 2019 2:49 PM MEDICAL CONSULTANT HISTORY: RUQ Abdominal pain. Rule out cholecystitis. TECHNIQUE: Gallbladder as well as liver were evaluated in multiple planes with the patient in different positions. Color imaging is utilized. FINDINGS: This examination is quite limi negar due to large body habitus of the patient and inability of the patient to cooperate. Gallbladder is of normal size and shape with large amount of biliary sludge, small biliary crystals and small gallstones. No free fluid detected in pericholecystic space. Common hepatic duct is 4.5 mm. Hepatic and portal venous system appeared patent. Liver is 16.7 cm and is poorly visualize d. Increased echotexture of the liver parenchyma, suggestive of hepatic steatosis. CONCLUSION: Limited study. Chronic jalen cystitis with small gallstones, biliary sludge and biliary crystals visu alized. Common hepatic duct is of normal size. Performing Organization Address City/State/Zipcode Phone Number PACS/VR/DOSE documented in this encounter Visit Diagnoses Diagnosis Symptomatic cholelithiasis - Primary Calculus of gallbladder without mention of cholecystitis or obstruction Biliary colic Calculus of gallbladder without mention of cholecystitis or obstruction Hyperkalemia Hyperpotassemia COVID-19 Syncope, unspecified syncope type documented in this encounter Administered Medications Medication Order MAR Action Action Date Dose Rate Site acetaminophen (TYLENOL) tablet 650 mg 650 mg, Oral, Q6HPRN, Starting Marj 05/08 at 1733, Until Discontinued, Routine, Pain (scale 1-3) albuterol (VENTOLIN) inhaler 2 Puff 2 Puff, Inhalation, Q4HPRN, Starting 05/09/20 at 0 549, Until Discontinued, Routine, Wheezing, Shortness of Breath, Bronchospasm, Chest tightness, Is this order for a patient with suspected or confirmed COVID- 19 infection? Yes ascorbic acid (vitamin C) (VITAMIN C) tablet Given 03/2020 9:11 AM MEDICAL CONSULTANT 500 mg 500 mg 500 mg, Oral, BID, First dose on Tue05/09/20 at 0800, Until Discontinued, Routine aspirin chewable tablet 81 mg Given 05/09/2020 9:11 AM MEDICAL CONSULTANT 81 mg 81 mg, Oral, DAILY, First dose on Tue05/09/20 at 0900, Until Discontinued, Routine atenoloL (TENORMIN) tablet 25 mg Given 05/09/2020 9:11 AM MEDICAL CONSULTANT 25 mg 25 mg, Oral, DAILY, First dose on Tue05/09/20 at 0900, Until Discontinued, Routine calcitrioL (ROCALTROL) capsule 0.25 mcg Given 05/09/2020 9:11 AM MEDICAL CONSULTANT 0.25 mcg 0.25 mcg, Oral, DAILY, First dose on Tue05/09/20 at 0900, Until Discontinued, Routine dextrose 50 % in water (D50W) injection 25 mL 25 mL, Slow IV Push, PRN, Starting Tue07/10/19 at 0555, Until Discontinued, RIOC, Blood Glucose < or = 70 mg/dL and patien t is unable to swallow or has mental status changes. furosemide (LASIX) injection 20 mg 20 mg, IV Push, DAILY, First dose on Tue05/10/20 at 0 900, Until Discontinued, Routine gemfibroziL (LOPID) tablet 600 mg Given 05/09/2020 9:11 AM MEDICAL CONSULTANT 600 mg 600 mg, Oral, BIDAC, First dose on Tue05/09/20 at 0730, Until Discontinued, Routine glucagon (GLUCAGEN DIAGNOSTIC KIT) injec tion 1 mg 1 mg, Intramuscular, PRN, Starting Tue07/10/19 at 0555, Until Discontinued, RICO, Blood Glucose < or = 70 mg/dL and patient is unable to swallow or has mental changes. guaiFENesin 100 mg/5 mL solution 200 mg 200 mg, Oral, Q4HPRN, Starting 05/09 at 0548, Until Discontinued, Routine, Cough HYDROcodone-acetaminophen (NORCO 5) 5-325 Given 2019 5:13 AM MEDICAL CONSULTANT 1 tablet mg tablet 1 tablet 1 tablet, Oral, Q6HPRN, Starting Marj 05/08/20 at 1733, Until 05/10/20 at 1732, Routine, Pain (scale 4-6) levothyroxine (SYNTHROID) tablet 225 mcg Given 05/09/2020 6:30 AM MEDICAL CONSULTANT 225 mcg 225 mcg, Oral, QAM-0600, First dose on Tue05/09/20 at 0600, Until Discontinued magnesium oxide (MAG-OX 400) tablet 400 mg 400 mg, Oral, BID, First dose on 04/18 at 1630, Until Discontinued, Routine morpHINE injection 4 mg 4 mg, Slow IV Push, Q4HPRN, Starting Marj 05/08/20 at 1733, Until Tue05/09/20 at 1732, Routine, Pain (scale 7-10) sodium bicarbonate (ANTACID (SODIUM Given 05/09/2020 2:24 PM CS T 650 mg BICARBONATE)) tablet 650 mg 650 mg, Oral, QID, First dose on Tue05/09/20 at 1600, Until Discontinued, Routine sodium polystyrene sulfonate (KAYEXALATE ) 15 gram/60 mL suspension 15 g 15 g, Oral, QMON/TUE, First dose on Tue05/12/20 at 09 00, Until Discontinued, Routine zinc sulfate (ORAZINC) capsule 220 mg Given 05/09/2020 2:24 PM MEDICAL CONSULTANT 220 mg 220 mg, Oral, TID, First dose on Tue05/09/20 at 0800, Until Discontinued, Routine Given 05/09/2020 9:11 AM MEDICAL CONSULTANT 220 mg Medication Order MAR Action Action Date Dose Rate Site D5W 0.45% NaCl (1/2NS) IV New Bag 05/08/2020 11:22 PM MEDICAL CONSULTANT 250 mL 100 mL/hr infusion 250 mL at 100 mL/hr, 250 mL, IV Infusion, CONTINUOUS, Starting Marj 05/08/20 at 2315, Until Tue05/09/20 at 1241, Routine dextrose 50 % in water (D50W) injection 50 mL Given 05/08/2020 5:34 PM MEDICAL CONSULTANT 50 mL 50 mL, Intravenous, ONCE, 1 dose, Marj 05/08/20 at 1800, STAT furosemide (LASIX) injection 20 mg Given 05/09/2020 2:24 PM MEDICAL CONSULTANT 20 mg 20 mg, IV Push, ONCE, 1 dose, Tue05/09/20 at 1400, RICO furosemide (LASIX) injection 40 mg Given 05/08/2020 5:20 PM MEDICAL CONSULTANT 40 mg 40 mg, IV Push, ONCE, 1 dose, Marj 05/08/20 at 1800, RICO insulin regular human (HUMULIN R) Given 05/08/2020 5:35 PM MEDICAL CONSULTANT 10 Units injection 10 Units 10 Units, IV Push, ONCE, 1 dose, Marj 05/08/20 at 1800, Routine morpHINE injection 4 mg Given 05/08/2020 3:08 PM MEDICAL CONSULTANT 4 mg 4 mg, Slow IV Push, ONCE, 1 dose, Marj 05/08/20 at 1530, STAT ondansetron (ZOFRAN (PF)) injection 4 mg Given 05/08/2020 3:02 PM MEDICAL CONSULTANT 4 mg 4 mg, Slow IV Push, ONCE, 1 dose, Marj 05/08/20 at 1530, Routine sodium polystyrene sulfonate (KAYEXALATE) 15 Given 0 6:04 PM MEDICAL CONSULTANT 15 g gram/60 mL suspension 15 g 15 g, Oral, ONCE, 1 dose, Marj 05/08/20 at 1830, Routine documented in this encounter Additional Health Concerns Infection Onset Date Last Indicated Resolved Time COVID-19 Rule Out 05/08/2020 05/08/2020 05/08/2020 3: 37 PM MEDICAL CONSULTANT COVID-19 Confirmed 05/08/2020 05/08/2020 documented as of this encounter documented as of this encounter
--- OUTSIDE RECORDS SUMMARY | 2020-05-23 23:30 | XMS REPORT | Summary of Care ---
:1960 Author Organization [facility] - Health Address [address] [place] [address] Care Team Providers Name Role Phone Paulo Joseph MD Primary Care Provider Encounter Details Date Type Department Care Team Description 05/19/2020 Orders Only [facility] Doctor Unassigned, No [address] [facility] [place] [address] [address] [place] [address] Allergies Active Allergy Reactions Severity Noted Date Comments Codeine Rash 10/13/2017 Diazepam Anxiety 03/14/2020 Penicillins Rash, Anaphylaxis High 10/13/2017 Sulfa (Sulfonamide Antibiotics) Rash 8 Sulfur Hives High 03/16/2020 documented as of this encounter (statuses as of 05/19/2020) Medications Medication Sig Dispensed Refills Start Date End Date Status gemfibrozil 600 mg tablet Take 600 mg by 0 Active mouth 2 (two) times daily before breakfast and dinner. phentermine 37.5 mg Take 37.5 mg by [...] Take 10 mg by 0 Active mouth. calcitrioL 0.25 mcg Take 0.25 mcg 0 Active capsule by mouth daily. nitroglycerin (NITRO-TIME Take by mouth. 0 Active ORAL) atenoloL 25 mg tablet Take 25 mg by 0 Active mouth daily. ergocalciferol, vitamin Take 1 capsule 4 capsule 2 05/09/2020 Active d2, (VITAMIN D2) 1,250 by mouth weekly 1 mcg (50,000 unit) for 90 days. capsuleIndications: Biliary colic sodium bicarbonate 650 mg Take 2 tablets 120 tablet 0 05/09/20 20 Active tabletIndications: by mouth 2 1 Biliary colic (two) times daily for 30 days. magnesium oxide 420 mg Take 400 mg by 30 tablet 0 05/09/2020 0 Active TabIndications: Biliary mouth daily for 1 colic 30 days. zinc sulfate 220 (50) mg Take 1 capsule 14 capsule 0 0 Active capsuleIndications: by mouth daily 0 Biliary colic for 14 days. sodium polystyrene Take 60 mL by 480 mL 0 05/12/2020 Active sulfonate 15 gram/60 mL mouth 2 (two) 1 suspensionIndications: times weekly on Biliary colic Tuesday and Tuesday for 30 days. hydroCHLOROthiazide 12.5 Take 1 capsule 30 capsule 0 0 Active mg capsuleIndications: by mouth daily 1 Biliary colic for 30 days. documented as of this encounter (statuses as of 05/19/2020) Active Problems Problem Noted Date Dyslipidemia 05/09/2020 COVID-19 05/08/2020 Symptomatic cholelithiasis 05/06/2020 Overview: Added automatically from request for meggan mehran [id number] History of [place] (myocardial infarction) 10/14/2017 Type 2 diabetes mellitus without complication 10/15/19 18 HTN (hypertension) 10/14/2017 Chest pain 10/14/2017 Cellulitis of left leg 10/13/2017 Morbid obesity with body mass index of 50 or higher Cellulitis 10/13/2017 documented as of this encounter (statuses as of 05/19/2020) Social History Tobacco Use Types Packs/Day Years Used Date Former Smoker Smokeless Tobacco: Never Used Alcohol Use Drinks/Week oz/Week Comments Not Currently Sex Assigned at Date Recorded Not on file COVID-19 Exposure Response Date Recorded In the last month, have you been in contact with No / Unsure 05/08/2020 1:51 PM SOFTWARE 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 documented as of this encounter Last Filed Vital Signs Not on filedocumented in this encounter Plan of Treatment Date Type Specialty Care Team Description 05/29/2020 Hospital Encounter Ambulatory Yue Reyez, Fanyto matabdiel Surgical cholelithiasis [address] [place] [address]. [place] [address] 05/29/2020 Anesthesia Event Surgery Patrice Chery MD [address] [place] [phone] 05/29/2020 Surgery Surgery Yue Reyez, LAPAROSCOPIC ROBOTIC MD ASSISTED [address] [place] [address] [place] [address] Health Maintenance Due Date Last [...] 55-80 with 30 + pack year history INFLUENZA VACCINE (#1) 2020 HgA1C 11/07/2020 05/09/2020, 10/13/2017 Depression Screening 04/14/2021 04/14/2020 LDL-C 04/17/2021 04/17/2020, 10/14/2017 CREATININE (SERUM) 05/09/2021 05/09/2020, 05/09/2020, 05/08/2020, Additional history exists documented as of this encounter Procedures Procedure Name Priority Date/Time Associated Diagnosis Comme nts ASSIGNMENT OF BENEFITS Routine 05/19/2020 1:19 PM SOFTWARE VERIFICATION ENGINEER documented in this encounter Results Not on filedocumented in this encounter Additional Health Concerns Infection Onset Date Last Indicated Resolved Time COVID-19 Confirmed 05/08/2020 05/08/2020 documented as of this encounter Insurance Payer Benefit Plan / Group Subscriber ID Effective Dates Phone Address Type [facility] GENERIC [id number] 2020-Present PPO documented as of this encounter
--- OUTSIDE RECORDS SUMMARY | 2020-05-23 23:30 | XMS REPORT | Summary of Care ---
:1960 Author Organization [facility] Address [address] [place] [id number] Care Team Providers Name Role Phone Paulo Joseph MD Primary Care Provider Reason for Visit Reason Comments Notification Encounter Details Date Type Department Care Team Description 05/09/2020 Telephone [facility] Ariadne Reyez MD Notification Surgery- [address] [address] 2247 [facility] [phone] [place] [phone] Allergies Active Allergy Reactions Severity Noted Date Comments Codeine Rash 10/13/2017 Diazepam Anxiety 03/14/2020 Penicillins Rash, Anaphylaxis High 10/13/2017 Sulfa (Sulfonamide Antibiotics) Rash 8 Sulfur Hives High 03/16/2020 documented as of this encounter (statuses as of 05/13/2020) Medications Medication Sig Dispensed Refills Start Date [...] mouth. calcitrioL 0.25 mcg Take 0.25 mcg by 0 Active capsule mouth daily. nitroglycerin Take by mouth. 0 Active (NITRO-TIME ORAL) atenoloL 25 mg tablet Take 25 mg by 0 Active mouth daily. documented as of this encounter (statuses as of 05/13/2020) Active Problems Problem Noted Date Dyslipidemia 05/09/2020 COVID-19 05/08/2020 Symptomatic cholelithiasis 05/06/2020 Overview: Added automatically from request for meggan laurent [id number] History of [place] (myocardial infarction) 10/14/2017 Type 2 diabetes mellitus without complication 10/15/19 18 HTN (hypertension) 10/14/2017 Chest pain 10/14/2017 Cellulitis of left leg 10/13/2017 Morbid obesity with body mass index of 50 or higher Cellulitis 10/13/2017 documented as of this encounter (statuses as of 05/13/2020) Social History Tobacco Use Types Packs/Day Years Used Date Former Smoker Smokeless Tobacco: Never Used Alcohol Use Drinks/Week oz/Week Comments Not Currently Sex Assigned at Date Recorded Not on file COVID-19 Exposure Response Date Recorded In the last month, have you been in contact with No / Unsure 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 documented as of this encounter Last Filed Vital Signs Not on filedocumented in this encounter Miscellaneous Notes Telephone Encounter - Mimi Alberto RN - 05/13/2020 2:33 PM CSTSpoke with patient and explained that we can move his test to 05/29/20 and patient accepted and thanked us. Notified Rich Green in posting who changed date elephone Encounter - Mirlande Carr - 05/09/2020 2:28 PM CSTPatient is having surgery on the /he has tested positive for Covid/state she has no symptoms. Explained will more than likely have to rechd him/please call patient to get him reshcd documented in this encounter Plan of Treatment Date Type Specialty Care Team Description 05/29/2020 Hospital Ambulatory Yue Reyez MD Symptomatic Encounter Surgical [address] [place] [address] [place] [address] Health Maintenance Due Date Last Done [...] history exists documented as of this encounter Results Not on filedocumented in this encounter Additional Health Concerns Infection Onset Date Last Indicated Resolved Time COVID-19 Confirmed 05/08/2020 05/08/2020 documented as of this encounter Insurance Payer Benefit Plan / Group Subscriber ID Effective Dates Phone Address Type [facility] [facility] [id number] 2020-Present PPO documented as of this encounter
--- OUTSIDE RECORDS SUMMARY | 2020-05-23 23:31 | XMS REPORT | Summary of Care ---
:1960 Author Organization [facility] Address [address] [place] [address] Care Team Providers Name Role Phone Paulo Joseph MD Primary Care Provider Reason for Visit Reason Comments LAB WORK Auth/Cert Status Reason Specialty Diagnoses / Procedures Referred By Morro pitts Referred To Contact Phlebotomy Diagnoses Essential (primary) hypertension Adc Pob Lab Draw Procedures COMP. 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 [facility] Nate Panchal MD [address] [place] [phone] Essential Professional Office Pob, Adc Lab Main hypertension, Building Phlebotomy malignan t (Primary Lab Dx) Professional Office [address] , [address] [place] [address] Allergies Active Allergy Reactions Severity [...] Overview: Added automatically from request for meggan farrisy [id number] History of [place] (myocardial infarction) 10/14/2017 Type 2 diabetes mellitus [...] been in contact with No / Unsure 05/19/2020 1:20 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 documented as of this encounter Last Filed Vital Signs Not on filedocumented in this encounter Nursing Notes Odilia Adams - 05/19/2020 1:15 PM CST Venipuncture collection performed by clean technique on the left forearm(s). Total of 1 attempts were made. Slight pressure and a bandage/dressing were applied to the site(s). The patient experienced no complications. The following specimens were processed according to instructions and sent to [facility] laboratories per lab order on 05/19/20: LT BLUE 1 SST RED LAV PPT DK GREEN (LiHep) DK GREEN (SodH) HURD DK BLUE (K2) DK BLUE (S) ACD Blood Culture NIPT/NTD documented in this encounter Plan of Treatment Date Type Specialty Care Team Description 05/29/2020 Hospital Encounter Ambulatory Yue Reyez Sympto matic Surgical cholelithiasis [address] [place] [address]. [place] [address] 05/29/2020 Anesthesia Event Surgery Patrice Chery MD [address] [place] [id number] 05/29/2020 Surgery Surgery Yue Reyez, LAPAROSCOPIC ROBOTIC MD ASSISTED [address] [place] [address] [place] [phone] Name Type Priority Associated Diagnoses Order S chedule COMP. METABOLIC PANEL LAB Routine Essential hypertens ion, Expected: 05/19/2020, (20273) malignant Expires: 2020 Health Maintenance Due Date Last Done Comments [...] filedocumented in this encounter Visit Diagnoses Diagnosis Essential hypertension, malignant - Prim araceli Symptomatic cholelithiasis Calculus of gallbladder without mention of cholecystitis or obstruction documented in this encounter Additional Health Concerns Infection Onset Date Last Indicated Resolved Time COVID-19 Confirmed 05/08/2020 05/08/2020 documented as of this encounter documented as of this encounter
--- OUTSIDE RECORDS SUMMARY | 2020-05-23 23:31 | XMS REPORT | Continuity of Care Document ---
:1960 Author Organization [facility] t Address [address] [place] [address] Care Team Providers Name Role Phone Pob, Lab Main Attending Clinician Unavailable Doctor Unassigned, Name Attending Clinician Unavailable Singer GUERRERO Attending Clinician Prema PHELAN Attending Clinician Aissatou PHELAN Attending Clinician Alexey PHELAN Attending Clinician Prema PHELAN Admitting Clinician Problems This patient has no known problems. Allergies, Adverse Reactions, Alerts This patient has no known allergies or adverse reactions. Medications This patient has no known medications. Procedures This patient has no known procedures. 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 13:43:00 17:11:00 Jr Lloyd [id number] [place] [id number] [place] [id number] 2020-05-09 2020-05-09 Telephone [facility] [id number] 00:00:00 00:00:00 Yue SPECIALTY [id number] [facility] [id number] CENTER AT [id number] [address] 2020-05-07 2020-05-07 Telephone [facility] [id number] 00:00:00 00:00:00 [place] SPECIALTY [id number] [facility] [id number] CENTER AT [id number] [address] 2020-04-14 2020-04-14 [facility] [id number] 08:55:36 09:59:15 Visit Kandi Faith [id number] [place] [id number] Profess [phone] [facility] Building Results This patient has no known results.
[2020-05-23] MEDS ORDERED: DEXTROSE 10%-WATER 500 ML IV ONE (23:57)
[2020-05-24 00:06] LABS: Absolute Lymphocytes (CBC) 0.6 K/uL (0.7-4.9); Basophils % 0.9 % (0-1.3); Hematocrit 29.3 % (39.6-49.0); Lymphocytes % 9.3 % (15.3-44.8); MPV 9.7 fL (7.6-11.3); RBC Red Blood Cell Count 3.11 M/uL (4.33-5.43)
[2020-05-24 00:07] LABS: Protime INR 1.07
[2020-05-24 00:20] LABS: Sodium Level 142 mmol/L (136-145)
[2020-05-24 00:21] LABS: ALT/SGPT 16 U/L (12-78); AST/SGOT 15 U/L (15-37); Albumin 3.3 g/dL (3.4-5.0); Alkaline Phosphatase 142 U/L (45-117); BUN Blood Urea Nitrogen 59 mg/dL (7-18); Bicarbonate 14 mmol/L (21-32); Bilirubin Direct 0.1 mg/dL (0-0.2); Bilirubin Total 0.3 mg/dL (0.2-1.0); Glucose Level 104 mg/dL (74-106); Magnesium 1.7 mg/dL (1.8-2.4); NT PRO-BNP 558 pg/mL (<125); Potassium 6.4 mmol/L (3.5-5.1); Protein, Total 6.9 g/dL (6.4-8.2); Troponin (Emerg Dept Use Only) < 0.02 ng/mL (0.0-0.045)
[2020-05-24] MEDS ORDERED: CALCIUM GLUCONATE 1 GM IVPB 1 GM/50 ML BAG IV ONE (00:48)
--- NOTE | 2020-05-24 02:20 | ER ---
Nurse's Notes [facility] Name: Tyson Addison Age: 59 yrs Sex: Male : 1960 Arrival Date: 05/23/2020 Time: 23:24 Bed 2 Private MD: Diagnosis: Hypoglycemia, unspecified;Syncope and collapse Presentation: 05/23 23:27 Chief complaint: EMS states: found pt unresponsive, upon arrival EMS noted his BGL ea read low, he was given a D10 bag after that his BGL was 48 and was responsive and following commands, they gave 15 grams of oral glucose, he then started to become unresponsive again, bgl was 48, he received a second bag of D10 and then a third. BGL was 134 upon arrival to ED. Pt felt nauseous was given Zofran 8 and Phenergan 12.5 per EMS. Pt was diagnosed with covid 10 days ago at [facility]. Coronavirus screen: Client reports previous positive COVID test result. Ebola Screen: No symptoms or risks identified at this time. Initial Sepsis Screen: Does the patient meet any 2 criteria? No. Patient's initial sepsis screen is negative. Does the patient have a suspected source of infection? No. Patient's initial sepsis screen is negative. Risk Assessment: Do you want to hurt yourself or someone else? Patient reports no desire to harm self or others. Onset of symptoms was May 23, 2020. 23:27 Method Of Arrival: EMS: [facility] ea 23:27 Acuity: JJ 3 ea - Immunization history:: Adult Immunizations up to date. - Social history:: Smoking status: Patient/guardian denies using tobacco. Screenin:38 Abuse screen: Denies threats or abuse. Nutritional screening: No deficits noted. ea Tuberculosis screening: No symptoms or risk factors identified. Fall Risk None identified. Assessment: 23:48 Reassessment: Verbal order obtained for D10 IV at 75 mls an hour. ea 05/24 00:40 Reassessment: Pt taken to CT. ea 01:00 Reassessment: Patient and/or family updated on plan of care and expected duration. Pain ea level reassessed. Pt resting with eyes closed, respirations even and unlabored, chest expansions even and symmetrical. 02:35 Reassessment: Mario Alberto-GIS SCIENTIST at bedside assessing the patient. admission advised. mg2 03:18 Reassessment: Patient and/or family updated on plan of care and expected duration. Pain ea level reassessed. Pt resting with eyes closed, respirations even and symmetrical. Vital Signs: 05/23 23:27 BP 139 / 66; Pulse 79; Resp 24; Temp 97; Pulse Ox 100% ; Weight 183.7 kg; Height 6 ft. ea 1 in. (185.42 cm); 05/24 00:40 BP 123 / 92; Pulse 60; Resp 22; Pulse Ox 100% ; ea 01:47 BP 128 / 49; Pulse 73; Resp 19; Pulse Ox 100% ; ea 02:36 BP 139 / 75; Pulse 71; Resp 18; Pulse Ox 99% on R/A; mg2 03:19 BP 131 / 67; Pulse 76; Resp 18; Pulse Ox 98% ; ea 05/23 23:27 Body Mass Index 53.43 (183.70 kg, 185.42 cm) ea ED Course: 05/23 23:24 Patient arrived in ED. mg2 23:27 Yaima Mueller RN is Primary Nurse. ea 23:27 Rylan Dye MD is Attending Physician. mh7 23:38 Triage completed. ea 23:38 Maintain EMS IV. Dressing intact. Good blood return noted. Site clean \T\ dry. Gauge \T\ ea site: 20 G to left breast. 23:38 Arm band placed on right wrist. Patient placed in an exam room, on a stretcher, on ea nurse monitoring, on pulse oximetry. 23:39 Patient has correct armband on for positive identification. Bed in low position. Call ea light in reach. Side rails up X2. patient monitor on. Pulse ox on. NIBP on. 23:57 XRAY Chest (1 view) In Process Unspecified. EDMS 05/24 01:26 Head C Spine Cap Wo Con In Process Unspecified. EDMS 02:20 Gustavo Acosta MD is Hospitalizing Provider. 7 03:19 No provider procedures requiring assistance completed. Patient admitted, IV remains in ea place. 16:13 cortisol drawn by ma and sent to lab. dh3 Administered Medications: 00:37 Drug: Calcium Gluconate 1 grams Route: IVPB; Infused Over: 60 mins; Site: left ea antecubital; 02:29 Follow up: Response: No adverse reaction; IV Status: Completed infusion; IV Intake: ea 100ml 01:10 Drug: d10 500 ml Route: IV; Rate: 75 calculated rate; Site: left wrist; mg2 03:20 Follow up: Response: No adverse reaction; IV Status: Infusion continued upon transfer ea Intake: 02:29 IV: 100ml; Total: 100ml. ea Outcome: 02:20 Decision to Hospitalize by Provider. mh7 03:19 Admitted to ER Hold. Please see [facility] for further documentation. marii 03:19 Condition: stable 03:19 Instructed on the need for admit, Demonstrated understanding of instructions. 20:52 Patient left the ED. ea Signatures: Dispatcher [employer] Corazon Monahan 3 Yaima Mueller RN RN ea Gardose, Michele, RN RN mg2 Holmes, Maurice, MD MD 7
--- NOTE | 2020-05-24 02:20 | EDPHYS ---
Physician Documentation [facility] Name: Tyson Addison Age: 59 yrs Sex: Male : 1960 Arrival Date: 05/23/2020 Time: 23:24 Bed 2 Private MD: ED Physician Rylan Dye HPI: 05/24 01:47 This 59 yrs old Male presents to ER via EMS with complaints of Low Blood mh7 Glucose. 01:47 The patient presents with decreased responsiveness. Onset: The symptoms/episode mh7 began/occurred today. Possible causes: low blood sugar, the patient takes and oral hypoglycemic. 01:58 Associated signs and symptoms: Pertinent negatives: abdominal pain, agitation, ataxia, mh7 blurred vision, chest pain, combativeness, confusion, diaphoresis, diarrhea, dizziness, headache, lightheadedness, nausea, numbness, palpitations, seizure, shortness of breath, tingling, vertigo, vomiting, weakness. Current symptoms: In the emergency department the patient's symptoms have improved, moderately. - Immunization history:: Adult Immunizations up to date. - Social history:: Smoking status: Patient/guardian denies using tobacco. ROS: 01:58 Constitutional: Negative for fever, chills, and weight loss, Eyes: Negative for injury, mh7 pain, redness, and discharge, ENT: Negative for injury, pain, and discharge, Neck: Negative for injury, pain, and swelling, Cardiovascular: Negative for chest pain, palpitations, and edema, Respiratory: Negative for shortness of breath, cough, wheezing, and pleuritic chest pain, Abdomen/GI: Negative for abdominal pain, nausea, vomiting, diarrhea, and constipation, Back: Negative for injury and pain, : Negative for injury, bleeding, discharge, and swelling, MS/Extremity: Negative for injury and deformity, Skin: Negative for injury, rash, and discoloration, Neuro: Negative for headache, weakness, numbness, tingling, and seizure, Psych: Negative for depression, anxiety, suicide ideation, homicidal ideation, and hallucinations, Allergy/Immunology: Negative for hives, rash, and allergies, Endocrine: Negative for neck swelling, polydipsia, polyuria, polyphagia, and marked weight changes, Hematologic/Lymphatic: Negative for swollen nodes, abnormal bleeding, and unusual bruising. Exam: 01:58 Head/Face: Normocephalic, atraumatic. Eyes: Pupils equal round and reactive to light, mh7 extra-ocular motions intact. Lids and lashes normal. Conjunctiva and sclera are non-icteric and not injected. Cornea within normal limits. Periorbital areas with no swelling, redness, or edema. Neck: Trachea midline, no thyromegaly or masses palpated, and no cervical lymphadenopathy. Supple, full range of motion without nuchal rigidity, or vertebral point tenderness. No Meningismus. Chest/axilla: Normal chest wall appearance and motion. Nontender with no deformity. No lesions are appreciated. Cardiovascular: Regular rate and rhythm with a normal S1 and S2. No gallops, murmurs, or rubs. Normal PMI, no JVD. No pulse deficits. Respiratory: Lungs have equal breath sounds bilaterally, clear to auscultation and percussion. No rales, rhonchi or wheezes noted. No increased work of breathing, no retractions or nasal flaring. Abdomen/GI: Soft, non-tender, with normal bowel sounds. No distension or tympany. No guarding or rebound. No evidence of tenderness throughout. Back: No spinal tenderness. No costovertebral tenderness. Full range of motion. Skin: Warm, dry with normal turgor. Normal color with no rashes, no lesions, and no evidence of cellulitis. MS/ Extremity: Pulses equal, no cyanosis. Neurovascular intact. Full, normal range of motion. Neuro: Awake and alert, GCS 15, oriented to person, place, time, and situation. Cranial nerves II-XII grossly intact. Motor strength 5/5 in all extremities. Sensory grossly intact. Cerebellar exam normal. Normal gait. Psych: Awake, alert, with orientation to person, place and time. Behavior, mood, and affect are within normal limits. 01:58 Constitutional: The patient appears in no acute distress, alert, awake, uncomfortable. Vital Signs: 05/23 23:27 BP 139 / 66; Pulse 79; Resp 24; Temp 97; Pulse Ox 100% ; Weight 183.7 kg; Height 6 ft. ea 1 in. (185.42 cm); 05/24 00:40 BP 123 / 92; Pulse 60; Resp 22; Pulse Ox 100% ; ea 01:47 BP 128 / 49; Pulse 73; Resp 19; Pulse Ox 100% ; ea 02:36 BP 139 / 75; Pulse 71; Resp 18; Pulse Ox 99% on R/A; mg2 03:19 BP 131 / 67; Pulse 76; Resp 18; Pulse Ox 98% ; ea 05/23 23:27 Body Mass Index 53.43 (183.70 kg, 185.42 cm) MDM: 02:18 Differential Diagnosis: CVA, electrolyte abnormality, alcohol intoxication, mh7 hypoglycemia, intracranial bleed, pneumonia, UTI, volume depletion. Data reviewed: vital signs, nurses notes, EMS record, lab test result(s), cardiac enzymes, CBC, electrolytes, urinalysis, EKG, radiologic studies, CT scan. Data interpreted: Pulse oximetry: on room air is 100 %. Interpretation: normal. Counseling: I had a detailed discussion with the patient and/or guardian regarding: the historical points, exam findings, and any diagnostic results supporting the discharge/admit diagnosis, lab results, radiology results, the need for further work-up and treatment in the hospital. Response to treatment: the patient's symptoms have markedly improved after treatment. 02:20 Patient medically screened. [facility] 05/23 23:34 Order name: Basic Metabolic Panel; Complete Time: 00:24 [facility] 05/23 23:34 Order name: CBC with Diff; Complete Time: 00:24 [facility] 05/23 23:34 Order name: LFT's; Complete Time: 00:24 [facility] 05/23 23:34 Order name: Magnesium; Complete Time: 00:24 [facility] 05/23 23:34 Order name: NT PRO-BNP; Complete Time: 00:24 [facility] 05/23 23:34 Order name: PT-INR; Complete Time: 00:24 [facility] 05/23 23:34 Order name: Troponin (emerg Dept Use Only); Complete Time: 00:24 [facility] 05/23 23:39 Order name: Glucose, Ancillary Testing; Complete Time: 23:41 EDMS 05/23 23:43 Order name: Lactate; Complete Time: 00:24 [facility] 05/24 01:41 Order name: Glucose, Ancillary Testing; Complete Time: 01:47 EDMS 05/24 02:26 Order name: COVID-19 [facility] 05/24 02:36 Order name: Glucose, Ancillary Testing; Complete Time: 02:53 EDMS 05/24 04:01 Order name: SARS-COV-2 RT PCR; Complete Time: 15:54 EDMS 05/24 05:14 Order name: Glucose, Ancillary Testing; Complete Time: 05:35 EDMS 05/24 06:15 Order name: Lactate; Complete Time: 15:54 EDMS 05/24 06:39 Order name: Comprehensive Metabolic Panel; Complete Time: 15:54 EDMS 05/24 06:39 Order name: T4 Free; Complete Time: 15:54 EDMS 05/24 06:39 Order name: Magnesium; Complete Time: 15:54 EDMS 05/24 06:39 Order name: Lipase; Complete Time: 15:54 EDMS 05/24 06:39 Order name: Thyroid Stimulating Hormone; Complete Time: 15:54 EDMS 05/24 06:44 Order name: Glucose, Ancillary Testing; Complete Time: 15:54 EDMS 05/24 06:46 Order name: Blood Culture EDMS 05/24 06:56 Order name: Procalcitonin; Complete Time: 15:54 EDMS 05/24 07:31 Order name: Glucose, Ancillary Testing; Complete Time: 15:54 EDMS 05/24 08:38 Order name: Glucose, Ancillary Testing; Complete Time: 15:54 EDMS 05/24 09:36 Order name: Glucose, Ancillary Testing; Complete Time: 15:54 EDMS 05/24 10:32 Order name: Glucose, Ancillary Testing; Complete Time: 15:54 EDMS 05/24 10:44 Order name: Basic Metabolic Panel; Complete Time: 15:54 EDMS 05/24 10:44 Order name: Magnesium; Complete Time: 15:54 EDMS 05/23 23:34 Order name: XRAY Chest (1 view); Complete Time: 15:54 mg2 05/23 23:34 Order name: EKG; Complete Time: 23:35 mg2 05/23 23:34 Order name: Cardiac monitoring; Complete Time: 23:45 mg2 05/23 23:34 Order name: EKG - Nurse/Tech; Complete Time: 23:45 mg2 05/23 23:34 Order name: IV Saline Lock; Complete Time: 23:45 mg2 05/23 23:34 Order name: Labs collected and sent; Complete Time: 23:45 mg2 05/23 23:34 Order name: O2 Per Protocol; Complete Time: 23:46 mg2 05/23 23:34 Order name: O2 Sat Monitoring; Complete Time: 23:46 mg2 05/24 00:44 Order name: Head C Spine Cap Wo Con EDMI 05/24 11:59 Order name: Glucose, Ancillary Testing; Complete Time: 15:54 EDMS 05/24 13:34 Order name: Glucose, Ancillary Testing; Complete Time: 15:54 EDMS 05/24 14:29 Order name: Glucose, Ancillary Testing; Complete Time: 15:54 EDMS 05/24 15:23 Order name: Glucose, Ancillary Testing; Complete Time: 15:54 EDMS 05/24 15:58 Order name: Urine Dipstick--Ancillary (enter results) em1 05/24 16:29 Order name: Glucose, Ancillary Testing EDMI 05/24 16:31 Order name: Glucose, Ancillary Testing EDMI 05/24 17:31 Order name: Urine Dipstick-Ancillary EDMI 05/24 17:41 Order name: Glucose, Ancillary Testing EDMI 05/24 17:41 Order name: Cortisol EDMI 05/24 18:12 Order name: Basic Metabolic Panel EDMI 05/24 18:12 Order name: Magnesium EDMI 05/24 18:47 Order name: Glucose, Ancillary Testing EDMI 05/24 19:00 Order name: Glucose, Ancillary Testing EDMI 05/24 20:13 Order name: Glucose, Ancillary Testing EDMS Administered Medications: 00:37 Drug: Calcium Gluconate 1 grams Route: IVPB; Infused Over: 60 mins; Site: left ea antecubital; 02:29 Follow up: Response: No adverse reaction; IV Status: Completed infusion; IV Intake: ea 100ml 01:10 Drug: d10 500 ml Route: IV; Rate: 75 calculated rate; Site: left wrist; mg2 03:20 Follow up: Response: No adverse reaction; IV Status: Infusion continued upon transfer ea Disposition: 05/24/20 02:20 Hospitalization ordered by Gustavo Acosta for Observation. Preliminary diagnosis are Hypoglycemia, unspecified, Syncope and collapse. - Bed requested for [facility] ER HOLD. - Status is Observation. ea - Condition is Stable. - Problem is new. - Symptoms have improved. Signatures: Dispatcher [employer] EDMI Manuel Yates MD MD cha Attema, Lee, CHEMISTRY RESEARCH ASSISTANT-C CHEMISTRY RESEARCH ASSISTANT-Cla1 Bonnie Reid RN RN tl1 Yaima Mueller RN RN ea [place], Michele, RN RN mg2 Rylan Dye MD MD 7 Corrections: (The following items were deleted from the chart) 05/23 23:49 23:45 Head C Spine CAP W Con+CT.RAD.BRZ ordered. [facility] 05/24 00:44 05/23 23:48 Head C Spine MPR Wo Con+CT.RAD.BRZ ordered. [facility] 05/24 01:19 05/23 23:48 Chest For PE Angio+CT.RAD.BRZ ordered. [facility] 05/24 01:20 05/23 23:48 Abdomen Pelvis W Con+CT.RAD.BRZ ordered. [facility] 05/24 01:59 00:27 Arterial Blood Gas+RC.LAB.BRZ ordered. [facility] 01:59 01:47 Associated signs and symptoms: Pertinent negatives: [place] [id number] 02:58 02:20 Hospitalization Ordered by Gustavo Acosta MD for Observation. Preliminary tl1 diagnosis is Hypoglycemia, unspecified; Syncope and collapse. Bed requested for Telemetry/MedSurg (observation). Status is Observation. Condition is Stable. Problem is new. Symptoms have improved. [facility] 20:52 02:58 05/24/2020 02:20 Hospitalization Ordered by Gustavo Acosta MD for Observation. ea Preliminary diagnosis is Hypoglycemia, unspecified; Syncope and collapse. Bed requested for [facility] ER HOLD. Status is Observation. Condition is Stable. Problem is new. Symptoms have improved. tl1
--- NOTE | 2020-05-24 03:27 | P.HP ---
Certification for Inpatient Patient admitted to: Inpatient With expected LOS: >2 Midnights Patient will require the following post-hospital care: None Practitioner: I am a practitioner with admitting privileges, knowledge of patient current condition, hospital course, and medical plan of care. Services: Services provided to patient in accordance with Admission requirements found in Title 42 Section 412.3 of the Code of Federal Regulations <Mario Alberto Puri - Last Filed: 05/24/20 03:19> Patient History Date of Service: 05/24/20 Primary Care Provider: Dr. Joseph Reason for admission: Hypoglycemia History of Present Illness: 59-year-old male with history of hypertension, diabetes mellitus type 2, history of myocardial infarction in, chronic kidney disease with chronic hyperkalemia, chronic pain presents the emergency department for hypoglycemia. Patient was reportedly found on the ground by his , blood sugar was checked and it was very low, patient was given D [address] to the hospital, blood sugar had improved to around 100 but has continued to drop while he has been in the emergency department. Patient reports that he has not taken his diabetic medications today and he is only on oral medications but this does include a sulfonylurea. Despite being on d 10 throughout his emergency department stay for approximately 2-3 hr he was still becoming hypoglycemic blood sugars are between 60 and 70. Patient reports he is not eating well due to a bad gallbladder. Patient had recent hospital stay with [facility], has planned outpatient cholecystectomy on Tuesday the . Patient still complaining of some right upper quadrant pain although white blood cell count is normal and CT without contrast does not show any signs of acute cholecystitis. Labs remarkable for potassium 6.4, creatinine 1.89, CO2 14, calcium 7.2, magnesium 1.7. Patient reports that he has potassium level greater than 6 chronically for at least 15 years. When inform patient's creatinine was 1.89 he stated that this is close to his baseline renal function. Patient also happened to test positive for Heart virus when he was admitted at [facility] recently. ED provider wishes to admit patient for further evaluation and management. 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 - Family History Father -: Cancer (Bladder and lung) - Social History Smoking Status: Never smoker Alcohol use: Yes CD- Drugs: No Caffeine use: Yes Place of Residence: Home <Mario Alberto Puri - Last Filed: 05/24/20 03:19> Date of Service: 05/24/20 <Gustavo Acosta - Last Filed: 05/24/20 11:54> Allergies codeine Allergy (Intermediate, Verified 06/13/13 16:13) Anaphylaxis diazepam [From Valium] Allergy (Intermediate, Verified 06/13/13 16:13) Anaphylaxis Penicillins Allergy (Intermediate, Verified 06/13/13 16:13) Hives/Rash influenza virus vaccine, specific [Influenza Virus Vacc,Specific] Adverse Reaction (Intermediate, Verified 06/13/13 16:13) Shortness of breath Sulfa (Sulfonamide Antibiotics) Adverse Reaction (Intermediate, Verified 06/13/13 16:13) Rash vancomycin Adverse Reaction (Intermediate, Verified 06/13/13 19:34) Rash Home Medications: Cyanocobalamin (Vitamin B-12) [Vitamin B-12] 1,000 mcg PO DAILY 06/13/13 Glyburide [Diabeta] 5 mg PO BID 06/13/13 Levothyroxine [Synthroid*] 2 tab PO [id number] 06/13/13 Metformin HCl [Metformin ER Osmotic] 1,000 mg PO BID 06/13/13 Omeprazole [Prilosec] 40 mg PO DAILY 06/13/13 Phentermine HCl 37.5 mg PO DAILY 06/13/13 Pioglitazone HCl [Actos] 45 mg PO DAILY 06/13/13 Potassium Chloride [K-Dur] 20 meq PO BID 06/13/13 Quinapril HCl [Accupril] 20 mg PO DAILY 06/13/13 Sitagliptin Phosphate [Januvia*] 100 mg PO DAILY 06/13/13 Tramadol HCl/Acetaminophen [Tramadol-Acetaminophn 37.5-325] 2 tab PO Q8HP PRN 06/13/13 atenoloL [Tenormin*] 50 mg PO DAILY 06/13/13 gemfibroziL [Lopid*] 600 mg PO BID 06/13/13 Clindamycin HCl [Cleocin HCl] 300 mg PO Q6HR #56 capsule 06/18/13 Doxycycline [Vibramycin*] 100 mg PO BID #28 tab 06/18/13 Tramadol/APAP [Ultracet 37.5 mg/APAP 325 mg per tab*] 1 - 2 tab PO Q4HP PRN #30 tab 06/18/13 Review of Systems 10-point ROS is otherwise unremarkable Gastrointestinal: Nausea, Abdominal Pain <Mario Alberto Puri - Last Filed: 05/24/20 03:19> Physical Examination - Physical Exam General: Alert, In no apparent distress, Oriented x3, Obese HEENT: Atraumatic, Normocephalic, Other (Mucous membranes dry) Neck: Supple Respiratory: Clear to auscultation bilaterally, Normal air movement Cardiovascular: No edema, Regular rate/rhythm Capillary refill: <2 Seconds Gastrointestinal: Normal bowel sounds, Tenderness (Mild to moderate right upper quadrant/epigastric tenderness noted) Musculoskeletal: No clubbing, No swelling, No contractures Integumentary: No rashes, No breakdown, No significant lesion Neurological: Normal gait, Normal speech, Normal strength at 5/5 x4 extr, Normal tone - Studies Laboratory Data (last 24 hrs) 05/23/20 23:40: PT 12.6 H, INR 1.07 05/23/20 23:40: WBC 6.6, Hgb 9.3 L, Hct 29.3 L, Plt Count 153 05/23/20 23:40: Sodium 142, Potassium 6.4 H*, BUN 59 H, Creatinine 1.89 H, Glucose 104, Magnesium 1.7 L, Total Bilirubin 0.3, AST 15, ALT 16, Alkaline Phosphatase 142 H <Mario Alberto Puri - Last Filed: 05/24/20 03:19> - Studies Laboratory Data (last 24 hrs) 05/23/20 23:40: PT 12.6 H, INR 1.07 05/23/20 23:40: WBC 6.6, Hgb 9.3 L, Hct 29.3 L, Plt Count 153 05/23/20 23:40: Sodium 142, Potassium 6.4 H*, BUN 59 H, Creatinine 1.89 H, Glucose 104, Magnesium 1.7 L, Total Bilirubin 0.3, AST 15, ALT 16, Alkaline Phosphatase 142 H <Gustavo Acosta - Last Filed: 05/24/20 11:54> Assessment and Plan - Plan Assessment Diabetes mellitus type 2 with Hypoglycemia without recent use of antidiabetic agents or insulin CKD with hyperkalemia Abdominal pain Hypocalcemia Hypomagnesemia Hypertension COVID-19 Plan Diabetes mellitus type 2 with Hypoglycemia without recent use of antidiabetic agents or insulin: Continue with our hourly glucose monitoring and D5W. Hold insulin/diabetic agents at this time. Encourage oral intake. Review medications. DVT prophylaxis heparin 5000 units subcutaneous twice daily. CKD with hyperkalemia: Patient reports that he is close to his baseline renal function and that his potassium is always elevated greater than 6.0, do not have comparison labs to review. Given dose of calcium IV in the emergency department for cardiac stabilization, dose of Lasix also given to promote potassium excretion. Abdominal pain: Patient scheduled for outpatient cholecystectomy on May 30. Will obtain ultrasound right upper quadrant as patient is having pain and tenderness to the area to rule out acute cholecystitis. Patient reports that he is not able to eat well due to the abdominal pain he experiences after eating, this could be contributing to his hypoglycemia. If patient's blood sugar improved and he is tolerating his diet he can be discharged to follow up on outpatient basis but if he continues to have too much pain to eat and his blood sugar is not maintaining well he may need to have this addressed on an inpatient basis. Hypocalcemia: Patient given calcium due to hyperkalemia in the emergency department, will recheck calcium level daily lab. Hypomagnesemia: 1 g magnesium given in the emergency department for hypomagnesemia, will recheck in the morning. Hypertension: Continue atenolol COVID-19: Patient is asymptomatic, continue with vitamins/supplements. Will hold off on steroids at this time. Discharge Plan: Home Plan to discharge in: 48 Hours - Advance Directives Does patient have a Living Will: No Does patient have a Durable POA for Healthcare: No - Code Status/Comfort Care Code Status Assessed: Yes (Full code) Critical Care: No Time Spent Managing Pts Care (In Minutes): 55 <Mario Alberto Puri - Last Filed: 05/24/20 03:19> - Plan Plan of care reviewed above, and I agree with the management plan as noted above by Mario Alberto Puri. Metabolic acidosis, CO2: 14 on BMP; possible RTA, nephrology consulted, start bicarb (IV & PO) Glucose remains low this morning, received 1 amp dextrose, possibly losing via urine. States he last took his glyburide ~2 days ago. denies vomiting/diarrhea <Gustavo Acosta - Last Filed: 05/24/20 11:54>
[2020-05-24] MEDS ORDERED: ACETAMINOPHEN 500 MG TAB PO PRN (04:30)
[2020-05-24] MEDS ORDERED: D5W 1,000 ML IV SCH ×2 (04:30→05:36)
[2020-05-24] MEDS ORDERED: FUROSEMIDE 40 MG/4 ML VIAL IV ONE ×2 (04:30→20:59)
[2020-05-24] MEDS ORDERED: ONDANSETRON 4 MG/2 ML VIAL IV PRN (04:30)
[2020-05-24] MEDS ORDERED: MAGNESIUM SULFATE 1 gm IVPB 1 GM/100 ML BAG IV ONE (04:30)
[2020-05-24] MEDS ORDERED: MELATONIN 5 MG TABLET PO PRN (04:30)
[2020-05-24 04:42] VITALS: BMI 54.7
[2020-05-24] MEDS ORDERED: FUROSEMIDE 40 MG/4 ML VIAL ONE ×2 (04:57→21:32)
[2020-05-24] MEDS ORDERED: D5W 1,000 ML IV ONE (04:57)
[2020-05-24] MEDS ORDERED: atenoloL 50 MG TAB ONE (04:57)
[2020-05-24] MEDS ORDERED: Magnesium Sulfate 2gm IVPB 2 G/50 ML BAG IV ONE ×2 (04:58→19:25)
[2020-05-24] MEDS ORDERED: LEVOTHYROXINE SOD 0.1 MG TAB ONE (05:04)
[2020-05-24] MEDS ORDERED: LEVOTHYROXINE SOD 0.125 MG TAB ONE (05:04)
[2020-05-24] MEDS ORDERED: D50W 50 ML IV ONE ×6 (05:21→18:37)
[2020-05-24] MEDS: D50W 25 GM/50 ML SYRINGE IV PRN ×6 (05:30→20:15)
[2020-05-24] MEDS: atenoloL 50 MG TAB PO SCH (06:00)
[2020-05-24] MEDS ORDERED: atenoloL 25 MG TAB PO SCH (06:00)
[2020-05-24] MEDS ORDERED: LEVOTHYROXINE SOD 0.125 MG TAB PO SCH (06:30)
[2020-05-24 06:33] LABS: Albumin 3.1 g/dL (3.4-5.0); Bilirubin Total 0.2 mg/dL (0.2-1.0); Protein, Total 6.5 g/dL (6.4-8.2)
[2020-05-24 06:35] LABS: Thyroid Stimulating Hormone 4.08 uIU/mL (0.360-3.740)
[2020-05-24 06:36] LABS: Potassium 6.3 mmol/L (3.5-5.1)
[2020-05-24 06:39] LABS: Magnesium 1.4 mg/dL (1.8-2.4)
[2020-05-24] MEDS ORDERED: ENOXAPARIN 40 MG/0.4 ML SQ ONE (08:02)
[2020-05-24] MEDS ORDERED: ASPIRIN 81 MG CHEWABLE TABLET ONE (08:02)
[2020-05-24] MEDS: ENOXAPARIN 40 MG/0.4 ML SQ SCH (08:56)
[2020-05-24] MEDS: ASPIRIN EC 81 MG TAB PO SCH (08:56)
[2020-05-24] MEDS ORDERED: ASCORBIC ACID 500 MG TABLET PO SCH (09:00)
[2020-05-24] MEDS ORDERED: VITAMIN D 1000 UNIT TAB PO SCH (09:00)
[2020-05-24] MEDS ORDERED: ZINC SULFATE 220 MG CAP PO SCH (09:00)
[2020-05-24] MEDS ORDERED: D5W 1,000 ML with NA BICARB 8.4% 75 MEQ IV SCH ×2 (10:00)
[2020-05-24 10:35] LABS: Magnesium 1.6 mg/dL (1.8-2.4)
[2020-05-24 10:43] LABS: Potassium 6.4 mmol/L (3.5-5.1)
[2020-05-24] MEDS: HYDROCODONE/APAP 5/325 MG TAB PO PRN (11:00)
[2020-05-24] MEDS ORDERED: HYDROCODONE/APAP 5/325 MG TAB ONE (11:19)
--- NOTE | 2020-05-24 12:43 | RAD REPORT ---
EXAM DESCRIPTION: RAD - Chest Single View - 05/23/2020 11:57 pm CLINICAL HISTORY: SOB Chest pain. COMPARISON: CHEST SINGLE VIEW dated 06/15/2013; CHEST SINGLE VIEW dated 06/13/2013; CHEST SINGLE VIEW dated 08/12/2003 FINDINGS: Portable technique limits examination quality. Mild pulmonary edema. The heart is significantly enlarged in size. No displaced fractures. IMPRESSION: Mild CHF versus volume overload pattern.
[2020-05-24] MEDS: SODIUM BICARB 325 MG TAB PO SCH ×3 (12:47→21:00)
--- NOTE | 2020-05-24 13:46 | RAD REPORT ---
EXAM DESCRIPTION: CT Chest, Abdomen and Pelvis Without Intravenous Contrast CLINICAL HISTORY: The patient is 59 years old and is Male; trauma pain TECHNIQUE: Axial computed tomography images of the chest, abdomen and pelvis without intravenous con trast. Sagittal and coronal reformatted images were created and reviewed. This CT exam was perfor med using one or more of the following dose reduction techniques: automated exposure control, adjus tment of the mA and/or kV according to patient size, and/or use of iterative reconstruction technique . COMPARISON: No relevant prior studies available. FINDINGS: Examination is limited by motion. CHEST: LUNGS: The lungs are clear of focal opacity, mass, or consolidation. PLEURAL SPACE: Unremarkable. No significant effusion. No pneumothorax. HEART: No cardiomegaly. No pericardial effusion. ABDOMEN: LIVER: Homogeneous without focal mass. GALLBLADDER AND BILE DUCTS: The gallbladder is physiologically distended. No calcified gallstones are seen. PANCREAS: Unremarkable. No ductal dilation. SPLEEN: Unremarkable. ADRENALS: Unremarkable. No mass. KIDNEYS AND URETERS: Calcification within the right renal parenchyma is present. Left intrarenal calcification is noted. No obstructing renal or ureteral calculus is seen. STOMACH AND BOWEL: Stomach is well distended with food contents and air. The small bowel is suzette l in caliber. A moderate amount of stool is present throughout colon. There is no mucosal thickening or evidence of bowel obstruction. PELVIS: APPENDIX: No findings to suggest acute appendicitis. BLADDER: The bladder is moderately distended. No stones. REPRODUCTIVE: Unremarkable as visualized. CHEST, ABDOMEN and PELVIS: INTRAPERITONEAL SPACE: Unremarkable. No significant fluid collection. No free air. BONES/JOINTS: There is no acute fracture of the visualized axial and appendicular skeleton. SOFT TISSUES: The soft tissues are normal. VASCULATURE: Unremarkable. No aortic aneurysm. LYMPH NODES: Unremarkable. No enlarged lymph nodes. IMPRESSION: No evidence of solid organ injury or traumatic bony findings on this noncontrasted CT of the chest, abdomen, and pelvis. EXAM DESCRIPTION: CT Head and Cervical Spine Without Intravenous Contrast CLINICAL HISTORY: The patient is 59 years old and is Male; trauma pain TECHNIQUE: Axial computed tomography images of the head/brain and cervical spine without intravenous contrast. Sagittal and coronal reformatted images were created and reviewed. This CT exam was pe rformed using one or more of the following dose reduction techniques: automated exposure control, a djustment of the mA and/or kV according to patient size, and/or use of iterative reconstruction techn ique. COMPARISON: No relevant prior studies available. FINDINGS: BRAIN: Unremarkable. No hemorrhage. No significant white matter disease. No edema. VENTRICLES: Unremarkable. No ventriculomegaly. SKULL: No acute fracture. SINUSES: Unremarkable as visualized. No acute sinusitis. MASTOID AIR CELLS: Unremarkable as visualized. No mastoid effusion. VERTEBRAE: The vertebral body heights and alignment are maintained. No acute fracture. DISCS/SPINAL CANAL/NEURAL FORAMINA: The intervertebral disc spaces are maintained. No spinal milly l stenosis. SOFT TISSUES: The soft tissues are normal. LUNG APICES: Unremarkable as visualized. IMPRESSION: No acute intracranial findings. No fracture or malalignment of the cervical spine Electronically signed by: Anahi Flores MD 05/24/2020 1:59 AM BLOCK TESTER Due to temporary technical issues with the PACS/Fluency reporting system, reports are being signed by the in house radiologists without review as a courtesy to insure prompt reporting. The interpreting radiologist is fully responsible for the content of the report.
--- NOTE | 2020-05-24 15:00 | P.CNS ---
Date of Consult: 05/24/20 Reason for Consult: CKD, hyperkalmeia and acidosis Primary Care Provider: Dr. Joseph Chief Complaint: Hypoglycemia History of Present Illness: HPI 59-year-old male with history of CKD baseline Cr 1.6-1.8 , chronic hyperkalemia, Acidosis hypertension, diabetes mellitus type 2, and recently Diagnosed with COVID 19 Presents the emergency department for symptomatic hypoglycemia. Pt was recently admitted to [facility] for abdominal pain, he have cholecytitis, but surgery deferred as he was COVID 19 positive, pt start having abdominal pain 2 days ago , with poor oral intake Review of Systems: Head and Neck: No red eye. No ear pain. GI: abdominal pain , nausea, poor appetite : No polyuria, no dysuria, no hematuria. Perioperative Educator: Not applicable. Respiratory: No shortness of breath. Cardiovascular: No chest pain. Endocrine: No polydipsia. Skin: No rash. Neuro: Has neuropathy. Musculoskeletal: No back pain . 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 cont kayexalate will add HCTZ and sodium bicarb metbaolic acidosis due to RTA IV will start sodium bicarb Symptomatic hypoglycemia cont D5 + bicarb if no improvement can start D10 HTN controlled total time spent 55min Allergies codeine Allergy (Intermediate, Verified 06/13/13 16:13) Anaphylaxis diazepam [From Valium] Allergy (Intermediate, Verified 06/13/13 16:13) Anaphylaxis Penicillins Allergy (Intermediate, Verified 06/13/13 16:13) Hives/Rash influenza virus vaccine, specific [Influenza Virus Vacc,Specific] Adverse Reaction (Intermediate, Verified 06/13/13 16:13) Shortness of breath Sulfa (Sulfonamide Antibiotics) Adverse Reaction (Intermediate, Verified 06/13/13 16:13) Rash vancomycin Adverse Reaction (Intermediate, Verified 06/13/13 19:34) Rash Home Medications: Cyanocobalamin (Vitamin B-12) [Vitamin B-12] 1,000 mcg PO DAILY 06/13/13 Glyburide [Diabeta] 5 mg PO BID 06/13/13 Levothyroxine [Synthroid*] 2 tab PO [id number] 06/13/13 Metformin HCl [Metformin ER Osmotic] 1,000 mg PO BID 06/13/13 Omeprazole [Prilosec] 40 mg PO DAILY 06/13/13 Phentermine HCl 37.5 mg PO DAILY 06/13/13 Pioglitazone HCl [Actos] 45 mg PO DAILY 06/13/13 Potassium Chloride [K-Dur] 20 meq PO BID 06/13/13 Quinapril HCl [Accupril] 20 mg PO DAILY 06/13/13 Sitagliptin Phosphate [Januvia*] 100 mg PO DAILY 06/13/13 Tramadol HCl/Acetaminophen [Tramadol-Acetaminophn 37.5-325] 2 tab PO Q8HP PRN 06/13/13 atenoloL [Tenormin*] 50 mg PO DAILY 06/13/13 gemfibroziL [Lopid*] 600 mg PO BID 06/13/13 Clindamycin HCl [Cleocin HCl] 300 mg PO Q6HR #56 capsule 06/18/13 Doxycycline [Vibramycin*] 100 mg PO BID #28 tab 06/18/13 Tramadol/APAP [Ultracet 37.5 mg/APAP 325 mg per tab*] 1 - 2 tab PO Q4HP PRN #30 tab 06/18/13 - Past Medical/Surgical History Diabetic: Yes -: NIDDM -: HTN -: HYPOTHYROIDISM -: GERD -: HIGH CHOLESTEROL -: ME -: PNEUMONIA -: MIGRAINES -: APPENDECTOMY -: HEAD INJURY W/ MULTIPLE SX -: MRSA W/ DEBRIDEMENT -: KNEE SX -: CARDIAC CATH Psychosocial/ Personal History: 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 - Family History Father History Unknown: Yes Medical History: Cancer - Social History Smoking Status: Never smoker Alcohol use: No CD- Drugs: No Caffeine use: No Place of Residence: Home Physical Examination Temp Pulse Resp BP Pulse Ox 98.2 F 71 22 H 125/78 97 05/24/20 04:00 05/24/20 04:30 05/24/20 12:00 05/24/20 04:30 05/24/20 12:00 Laboratory Data (last 24 hrs) 05/23/20 23:40: PT 12.6 H, INR 1.07 05/23/20 23:40: WBC 6.6, Hgb 9.3 L, Hct 29.3 L, Plt Count 153 05/23/20 23:40: Sodium 142, Potassium 6.4 H*, BUN 59 H, Creatinine 1.89 H, Glucose 104, Magnesium 1.7 L, Total Bilirubin 0.3, AST 15, ALT 16, Alkaline Phosphatase 142 H
[2020-05-24] MEDS ORDERED: DEXTROSE 10%-WATER 500 ML IV SCH ×2 (15:30→21:33)
[2020-05-24 17:31] LABS: Urine Blood NEGATIVE (NEG); Urine Glucose NEGATIVE (NEG); Urine Protein NEGATIVE (NEG); Urine Specific Gravity 1.015 (1.005-1.030)
[2020-05-24] MEDS ORDERED: HYDROCORTISONE SUC 100 MG INJ ONE (17:45)
[2020-05-24] MEDS ORDERED: HYDROCORTISONE SUC 100 MG INJ IV SCH (18:00)
[2020-05-24 18:12] LABS: Magnesium 1.4 mg/dL (1.8-2.4); Potassium 5.8 mmol/L (3.5-5.1)
[2020-05-24] MEDS ORDERED: OCTREOTIDE ACETATE 100 MCG/ML ONE (19:18)
[2020-05-24] MEDS ORDERED: [UNRECOGNIZED DRUG - OTHER] IV ONE ×3 (19:25→22:53)
[2020-05-24] MEDS ORDERED: DEXTROSE 10%-WATER 500 ML IV ONE (19:25)
[2020-05-24] MEDS: OCTREOTIDE ACETATE 100 MCG/ML SQ SCH (20:00)
[2020-05-24] MEDS ORDERED: TAMSULOSIN 0.4 MG SR CAP ONE (21:32)
[2020-05-24] MEDS: TAMSULOSIN 0.4 MG SR CAP PO SCH (21:38)
[2020-05-24] MEDS ORDERED: SODIUM BICARB 325 MG TAB PO ONE (21:43)
[2020-05-24] MEDS ORDERED: DEXTROSE IV SCH ×2 (22:00→23:48)
[2020-05-24] MEDS: DEXTROSE 10% IV SCH ×2 (22:15)
[2020-05-24] MEDS: WATER IV SCH ×2 (22:15)
[2020-05-24] MEDS: [UNRECOGNIZED DRUG - OTHER] IV SCH ×2 (22:15)
[2020-05-25] MEDS ORDERED: OCTREOTIDE ACETATE 100 MCG/ML SQ SCH
[2020-05-25] MEDS ORDERED: DEXTROSE 10%-WATER 500 ML IV ONE ×2 (00:04→00:47)
[2020-05-25] MEDS: HYDROCODONE/APAP 5/325 MG TAB PO PRN (00:10)
[2020-05-25] MEDS ORDERED: HYDROCODONE/APAP 5/325 MG TAB ONE (00:24)
[2020-05-25 00:55] LABS: Urine Appearance CLEAR; Urine Bilirubin NEGATIVE (NEG); Urine Blood NEGATIVE (NEG); Urine Color YELLOW; Urine Glucose NEGATIVE (NEG); Urine Microscopic Reflex NO UMIC; Urine Protein NEGATIVE (NEG); Urine Specific Gravity <=1.005 (1.005-1.030); Urine Urobilinogen 0.2 mg/dL (0.2-1.0)
[2020-05-25] MEDS: OCTREOTIDE ACETATE 100 MCG/ML SQ SCH ×2 (01:41→09:24)
--- NOTE | 2020-05-25 01:58 | P.PN ---
Date of Service: 05/25/20 Upon beginning of my shift patient was noted to still be hypoglycemic, patient was hypoglycemic despite continuous d 10 infusion, eating high carb foods, administration of and of dextrose approximately every hr. Patient's sugars were in the 40s to 70s at most. Noted that patient had recently completed course of hydroxychloroquine 200 mg p.o. b.i.d. for 2 weeks. Patient finished this 2 days ago. Also discussed case with patient's who reports that he has been having episodes of hypoglycemia since February or it even before then but nothing this severe. Given patient's high requirement of glucose and inadequate rise and glucose level I reached out to poison control to speak with v groove cutter. It was noted that patient takes glyburibde, Actos and had recently completed the hydroxychloroquine. The v groove cutter recommended octreotide 50 mcg subcutaneous q.6h in addition to noting that hydroxychloroquine has been noted to slow the breakdown of insulin in the body allowing for essentially in insulin overdose to take place. Patient was placed in gown, belongings taken away, it does not appear to be using endogenous insulin. Unable to obtain C-peptide or insulin levels at this time as they are send out labs will not return for likely a number of days or even weeks. Patient had CT without contrast which did not reveal an insulinom although this would be unlikely to show up on such imaging. Patient was given octreotide and switched to d 20, after number of hr patient's blood sugar austin above 100 for the 1st time and continue to rise steadily. Patient's blood sugar now greater than 200, will discontinue dextrose infusion, continue octreotide. Patient states he doing well otherwise. Nursing staff had difficulty placing peripheral IV, 18 gauge peripheral IV inserted to the right AC with ultrasound guidance.
[2020-05-25] MEDS: [UNRECOGNIZED DRUG - OTHER] IV SCH ×2 (03:27)
[2020-05-25] MEDS: DEXTROSE 10% IV SCH ×2 (03:27)
[2020-05-25] MEDS: WATER IV SCH ×2 (03:27)
[2020-05-25] MEDS ORDERED: LEVOTHYROXINE SOD 0.125 MG TAB ONE (05:13)
[2020-05-25 05:15] LABS: Absolute Lymphocytes (CBC) 0.9 K/uL (0.7-4.9); Basophils % 0.6 % (0-1.3); Lymphocytes % 15.7 % (15.3-44.8); MPV 9.6 fL (7.6-11.3)
[2020-05-25] MEDS: atenoloL 50 MG TAB PO SCH (05:17)
[2020-05-25 05:32] LABS: Bilirubin Total 0.3 mg/dL (0.2-1.0); Magnesium 1.6 mg/dL (1.8-2.4); Protein, Total 6.3 g/dL (6.4-8.2)
[2020-05-25 05:41] LABS: Potassium 6.9 mmol/L (3.5-5.1)
[2020-05-25] MEDS: LEVOTHYROXINE SOD 0.125 MG TAB PO SCH (05:45)
[2020-05-25] MEDS ORDERED: CALCIUM GLUC 10% INJ 4.65 MEQ in NA CHLORIDE 0.9% 100 ML IV ONE ×2 (06:05→18:00)
[2020-05-25] MEDS ORDERED: MAGNESIUM SULFATE 1 gm IVPB 1 GM/100 ML BAG IV ONE ×2 (06:17→07:13)
[2020-05-25] MEDS ORDERED: SOD POLYSTYREN SUL 15 GM/60 ML UCUP PO ONE ×2 (06:35→11:15)
[2020-05-25] MEDS ORDERED: DEXTROSE IV SCH (07:00)
[2020-05-25] MEDS ORDERED: SOD POLYSTYREN SUL 15 GM/60 ML UCUP ONE (07:12)
[2020-05-25] MEDS ORDERED: CALCIUM GLUCONATE 1 GM IVPB 1 GM/50 ML BAG IV ONE ×2 (07:13→16:23)
--- NOTE | 2020-05-25 08:01 | RAD REPORT ---
EXAM DESCRIPTION: US - Abdomen Exam Limited - 05/24/2020 11:15 pm CLINICAL HISTORY: assess gallbladder Preliminary findings provided at the time of the study. COMPARISON: No comparisons FINDINGS: No gallstones, sludge or other abnormalities within the gallbladder lumen. There is no wal l thickening or pericholecystic fluid. No common duct stone or biliary tree dilatation identified. Exam is limited by large body habitus and patient's limited ability to take in a deep breath. IMPRESSION: Limited examination shows no gallbladder or biliary tree abnormality.
[2020-05-25] MEDS ORDERED: hydroCHLOROthiazide 25 MG TAB PO SCH (09:00)
[2020-05-25] MEDS: ENOXAPARIN 40 MG/0.4 ML SQ SCH (09:12)
[2020-05-25] MEDS: ASPIRIN EC 81 MG TAB PO SCH (09:12)
[2020-05-25] MEDS: SODIUM BICARB 325 MG TAB PO SCH ×3 (09:13→21:30)
[2020-05-25] MEDS ORDERED: ASPIRIN EC 81 MG TAB PO ONE (09:25)
[2020-05-25] MEDS ORDERED: ENOXAPARIN 40 MG/0.4 ML SQ ONE (09:26)
[2020-05-25] MEDS ORDERED: OCTREOTIDE ACETATE 100 MCG/ML ONE (09:39)
[2020-05-25] MEDS: D5W 1,000 ML with NA BICARB 8.4% 150 MEQ IV SCH ×2 (11:16)
--- NOTE | 2020-05-25 12:01 | P.PN ---
Subjective Date of Service: 05/25/20 Primary Care Provider: Dr. Joseph Chief Complaint: Hypoglycemia Subjective 59-year-old male with history of CKD baseline Cr 1.6-1.8 , chronic hyperkalemia, Acidosis hypertension, diabetes mellitus type 2, and recently Diagnosed with COVID 19 Presents the emergency department for symptomatic hypoglycemia. Pt was recently admitted to [facility] for abdominal pain, he have cholecytitis, but surgery deferred as he was COVID 19 positive, pt start having abdominal pain 2 days ago , with poor oral intake Today Pain improved BS now high Cr up to 2.1, K 6.9, Bicarb 15 Pt refused to take all the kayexalate , he is also refusing HD will start Bicarb drip and fludrocortison Review of Systems: Head and Neck: No red eye. No ear pain. GI: denied abdominal pain , nausea, : No polyuria, no dysuria, no hematuria. Vp [employer] [place]: Not applicable. Respiratory: No shortness of breath. Cardiovascular: No chest pain. Endocrine: No polydipsia. Skin: No rash. Neuro: Has neuropathy. Musculoskeletal: No back pain . 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
[2020-05-25 13:27] LABS: Potassium 5.6 mmol/L (3.5-5.1)
--- NOTE | 2020-05-25 15:41 | P.PN ---
Subjective Date of Service: 05/25/20 Primary Care Provider: Dr. Joseph Chief Complaint: Hypoglycemia Subjective: Improving (patient feels better this morning. glucose increased. alert and oriented, continues with r sided abd pain) Review of Systems 10-point ROS is otherwise unremarkable Physical Examination - Vital Signs Temperature: 98.2 F Blood Pressure: 108/44 Pulse: 59 Respirations: 17 Pulse Ox (%): 100 - Physical Exam General: Alert, In no apparent distress HEENT: Sclerae nonicteric Respiratory: Clear to auscultation bilaterally, Normal air movement Cardiovascular: No edema, Regular rate/rhythm Gastrointestinal: Soft and benign, Tenderness (right sided, RUQ/RLQ) Musculoskeletal: No tenderness Integumentary: No rashes Neurological: Normal speech, Normal affect Assessment & Plan Physician Review Additional Text: Diabetes mellitus type 2 with Hypoglycemia with recent use of antidiabetic agents LUIS on CKD with hyperkalemia Abdominal pain Hypocalcemia Hypomagnesemia Hypertension COVID-19 Plan Diabetes mellitus type 2 with Hypoglycemia without recent use of antidiabetic agents or insulin: required multiple amps of D50 even while on D10 yesterday to maintain glc > 40. Even with glc @21, pt was talking, eating cake, felt ok poison control was called overnight, recommended octreotide subq for possible intoxication of his glyburide /actos, but pt states he last took ~2 days prior to admission this morning glc improving, now off IV fluids this afternoon with glc >200, pt feeling slightly dizzy /lightheaded similar to when he gets hyperglycemic, discussed with poison control, will dc octreotide and monitor still unclear if due to medications vs possible insulinoma / other endocrine pathology. 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 electrolyte replacement as well continue to monitor closely. renal function worsening. hyperkalemia > 6.0, will give kayexalate this morning, repeat BMP in afternoon Abdominal pain: Patient scheduled for outpatient cholecystectomy on , 05/29. RUQ U/S and CT abd rather benign. Unclear what is leading to patient's significant R sided pain. ?functional gallbladder disease tolerating diet well, did have some nausea overnight consult general surgery for further evaluation / input Hypocalcemia, hypomagnesemia: replace as needed Hypertension: Continue atenolol COVID-19: s/p treatment with plaquenil, negative test here Dispo: anticipate hospitalization >2 days Time Spent Managing Pts Care (In Minutes): 50
[2020-05-25] MEDS ORDERED: CALCIUM CARB 500MG/VIT D 200 IU TAB PO ONE ×2 (16:31→22:23)
[2020-05-25] MEDS: FLUDROCORTISONE 0.1 MG TAB PO SCH (16:39)
[2020-05-25] MEDS: CALCIUM CARBONATE 500 MG TAB PO SCH ×2 (16:40→21:00)
--- NOTE | 2020-05-25 19:41 | RAD REPORT ---
EXAM DESCRIPTION: US - Renal Ultrasound-Complete - 05/25/2020 6:48 pm CLINICAL HISTORY: LUIS COMPARISON: Abdomen Exam Limited dated 05/24/2020 FINDINGS: The right kidney measures 11.9 x 6.0 x 5.7 cm. The left kidney measures 10.0 x 5.4 x 4.6 cm. Renal cortical thickness and echogenicity are normal. No hydronephrosis or suspicious renal mass. No bladder wall thickening or mass. No intraluminal stone or mass. Exam is limited in detail due to the affects of body habitus. IMPRESSION: Exam is limited by the affects of large body habitus. However, no mass, hydronephrosis o r suspicious finding seen.
[2020-05-25] MEDS: TAMSULOSIN 0.4 MG SR CAP PO SCH (21:24)
[2020-05-25] MEDS ORDERED: TAMSULOSIN 0.4 MG SR CAP ONE (21:35)
[2020-05-26] MEDS ORDERED: D5W 1,000 ML IV ONE (02:07)
[2020-05-26] MEDS ORDERED: SODIUM BICARB 50 MEQ/50ML VIAL ONE (02:08)
[2020-05-26] MEDS: D5W 1,000 ML with NA BICARB 8.4% 150 MEQ IV SCH ×2 (02:28)
[2020-05-26 05:25] LABS: Protime INR 1.27
[2020-05-26 05:27] LABS: Absolute Lymphocytes (CBC) 1.2 K/uL (0.7-4.9); Basophils % 0.3 % (0-1.3); Hematocrit 24.4 % (39.6-49.0); Lymphocytes % 22.3 % (15.3-44.8); MPV 9.2 fL (7.6-11.3)
[2020-05-26 05:40] LABS: Bilirubin Total 0.3 mg/dL (0.2-1.0); Magnesium 1.6 mg/dL (1.8-2.4); Potassium 4.5 mmol/L (3.5-5.1); Protein, Total 6.1 g/dL (6.4-8.2)
[2020-05-26] MEDS ORDERED: MAGNESIUM SULFATE 1 gm IVPB 1 GM/100 ML BAG IV ONE (05:52)
[2020-05-26 05:57] LABS: Blood Morphology Comment NOT SEEN (NOT SEEN); Platelet Estimate ADEQ
[2020-05-26] MEDS: atenoloL 50 MG TAB PO SCH (06:00)
[2020-05-26] MEDS ORDERED: atenoloL 50 MG TAB ONE (06:11)
[2020-05-26] MEDS: LEVOTHYROXINE SOD 0.125 MG TAB PO SCH (06:34)
[2020-05-26] MEDS: SODIUM BICARB 325 MG TAB PO SCH ×3 (08:58→20:36)
[2020-05-26] MEDS: FLUDROCORTISONE 0.1 MG TAB PO SCH (08:58)
[2020-05-26] MEDS: CALCIUM CARBONATE 500 MG TAB PO SCH ×3 (08:58→20:36)
[2020-05-26] MEDS: ASPIRIN EC 81 MG TAB PO SCH (09:02)
[2020-05-26] MEDS: ENOXAPARIN 40 MG/0.4 ML SQ SCH (09:02)
[2020-05-26] MEDS ORDERED: ASPIRIN EC 81 MG TAB PO ONE (09:16)
[2020-05-26] MEDS ORDERED: ENOXAPARIN 40 MG/0.4 ML SQ ONE (09:17)
[2020-05-26] MEDS: CALCITROL 0.25 MCG CAP PO SCH (09:18)
--- NOTE | 2020-05-26 10:00 | CON ---
Date of Consultation: 05/26/2020 Brief History Of Present Illness: The patient is a 59-year-old male with a history of hype rtension, diabetes, myocardial infarction, CKD, chronic hyperkalemia, chronic pain, who presents to [facility] emergency department with hypoglycemia. He was having medical issues as described above and with multiple electrolyte abnormalities, particularly the hyperkalemia. He states that he was scheduled t o have a gallbladder surgery removed by [facility], but currently has abdominal pain across his upper abdom en and down his left lower quadrant. He also had a history of diverticulitis. He currently feels fi ne without pain. He is tolerating a regular diet at this point and has no pain or tenderness by his description. Past Medical History: As above significant for diabetes, hypertension, hypothyroidism, GERD, high ch olesterol, myocardial infarction, pneumonia, migraines. Past Surgical History: Included an appendectomy, multiple surgeries for head injury, MRSA with debri dements, knee surgery, cardiac catheterization. 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 Lives with his . He denies smoking. He drinks alc ohol recreationally. Denies any other recreational drug use. Allergies: TO CODEINE, VALIUM, PENICILLIN, INFLUENZA SHOT, SULFA, VANCOMYCIN. Home Medications: Include cyanocobalamin, glyburide, Synthroid, metformin, Prilosec, phentermine, Ac tos, K-Dur, Accupril, Boniva, tramadol, Tenormin, Lopid, Cleocin, Vibramycin, Ultracet. Review of Systems: Ten-point review of systems other than HPI, denies. Physical Examination: General: At the time of my examination, he is awake, alert, and oriented. Psychiatric: Appropriate, conversive. HEENT: Normocephalic. Sclerae anicteric. Mucous membranes are moist. Oropharynx is clear. Neck: Supple without JVD. Chest: Normal expansion and excursion. Cardiovascular: Regular rate and rhythm. Pulmonary: Clear to auscultation bilaterally. Abdomen: Soft, nontender, nondistended. No rebound. Negative Bernal sign. No guarding. He is obe se. Diagnostic Studies: He had imaging performed, which included a CT head, cervical spine, chest, abdom en and pelvis, which was read as no evidence of solid organ injury or traumatic bony findings on the noncontrast CT chest, abdomen and pelvis. No acute intracranial findings. No fracture misalignment of the cervical spine. He had an abdominal ultrasound as well, which was officially read as limited examination and shows no gallbladder or biliary tree abnormality. His laboratory exam when I saw him was a hemoglobin 8.4, white blood cell 5.5, hematocrit 26, platelet count 130. His chemistry was a sodium of 138, potassium 6.9, chloride 115, carbon dioxide 16, BUN 57, creatinine 2.1. His total negra irubin was 0.3, AST was 17, ALT is 16, alkaline phosphatase is 107. Assessment And Plan: This is a 59-year-old male with multiple medical problems, electrolyte abnormal ities. 1.I suspect some medical issue, possibly endocrine in nature causing his chronic issues. Recommend workup for possible aldosterone issues versus other medical contributing factors to his overall elect rolyte abnormalities and blood sugar abnormalities. 2.I do not find the patient has evidence of acute cholecystitis at this time and as such, no surgica l intervention is necessary. I will sign off at this time. Please call back for any other concerns. Thank you for this interesting consult. DANYEL/NUBIA Voice ID: [id number] Report ID: [id number]
[2020-05-26] MEDS: NACHLORIDE 0.45% 1,000 ML IV SCH (14:14)
[2020-05-26] MEDS ORDERED: NACHLORIDE 0.45% 1,000 ML IV ONE (14:22)
[2020-05-26] MEDS: HYDROCODONE/APAP 5/325 MG TAB PO PRN (18:03)
[2020-05-26] MEDS ORDERED: HYDROCODONE/APAP 5/325 MG TAB ONE (18:16)
--- NOTE | 2020-05-26 18:51 | P.PN ---
Subjective Date of Service: 05/26/20 Primary Care Provider: Dr. Joseph Chief Complaint: Hypoglycemia Subjective: Improving (Feeling better, glucose much better, and stopped octreotide yesterday) Review of Systems 10-point ROS is otherwise unremarkable Physical Examination - Vital Signs Temperature: 98.6 F Blood Pressure: 156/63 Pulse: 90 Respirations: 16 Pulse Ox (%): 100 - Physical Exam General: Alert, In no apparent distress, Oriented x3 HEENT: Sclerae nonicteric Respiratory: Clear to auscultation bilaterally Cardiovascular: Regular rate/rhythm Gastrointestinal: Soft and benign, Tenderness (R sided) Musculoskeletal: No tenderness Integumentary: No rashes Neurological: Normal speech, Normal affect Assessment & Plan Physician Review Additional Text: Diabetes mellitus type 2 with Hypoglycemia with recent use of antidiabetic agents LUIS on CKD with hyperkalemia Abdominal pain Hypocalcemia Hypomagnesemia Hypertension COVID-19 Plan Diabetes mellitus type 2 with Hypoglycemia without recent use of antidiabetic agents or insulin: Initially required multiple amps of D50 even while on D10 yesterday to maintain glc > 40. Even with glc @21, pt was talking, eating cake, felt ok Given octreotide for possible intoxication/for reversal of glyburide/Actos With significant improvement of glucose following octreotide. Octreotide was discontinued and patient continues without hypoglycemia still unclear if due to medications vs possible insulinoma / other endocrine pathology. insulin and cpeptide ordered - are send outs and won't have results for days Most likely due to medications. 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 electrolyte replacement as well. Started on fludrocortisone yesterday and continue to monitor closely. renal function improving now Hyperkalemia improving as well Abdominal pain: Patient scheduled for outpatient cholecystectomy on , 05/29. RUQ U/S and CT abd rather benign. Unclear what is leading to patient's significant R sided pain. ?functional gallbladder disease tolerating diet well General surgery consulted, and did not feel patient needs cholecystectomy Patient states he will be able to obtain his prior records on my chart Hypocalcemia, hypomagnesemia: replace as needed Hypertension: Continue atenolol COVID-19: s/p treatment with plaquenil, negative test here Dispo: anticipate discharge home in 24-48hr pending stable glucose off D5 / meds that increase glc Time Spent Managing Pts Care (In Minutes): 35
[2020-05-26] MEDS: TAMSULOSIN 0.4 MG SR CAP PO SCH (20:36)
[2020-05-26] MEDS ORDERED: TAMSULOSIN 0.4 MG SR CAP ONE (20:50)
[2020-05-27] MEDS ORDERED: NACHLORIDE 0.45% 1,000 ML IV ONE (01:12)
--- NOTE | 2020-05-27 01:13 | PN ---
Date of Progress Note: 05/26/2020 History Of Present Illness: Acute on chronic kidney injury. Patient has chronic kidney disease, baseline creatinine 1.6 to 1.8, diabetic kidney disease, history of hyperkalemia. The patient has hypertensive heart and kidney disease. He was recently diagnosed with COVID-19. He presented to emergency room with symptomatic hypoglycemia. Patient was taking glyburides. Patient recently was admitted to [facility] for abdominal pain. Surgery was deferred because he had COVID- 19 positive test. Patient came to the hospital because of abdominal pain, decreased p.o. intake. He states that he has history of kidney stones and passed stones several weeks ago. Patient is feeling better today. Creatinine level is improving. Bicarbonate is improving in a patient with topical bicarbonate drip. He refused to take Kayexalate and he is refusing dialysis. Patient was started on fludrocortisone for hyperkalemia. Potassium level was 6.9 and bicarbonate 16, creatinine level is improving from 2.1 to 1.8 over last 24 hours. Review of Systems: Denies PND, orthopnea. Physical Examination: Lungs: Diminished breath sounds at bases. HEART: S1, S2. ABDOMEN: Soft, benign. EXTREMITIES: No edema. Impression And Plan: 1. Acute on chronic kidney disease. Patient has chronic kidney disease 3a/3b, acute kidney injury due to volume depletion in the setting of nausea, vomiting, abdominal pain. Patient has chronic kidney disease due to diabetes mellitus and hypertension. Creatinine at baseline is 1.6 to 1.8. Acute kidney injury is gradually improving with IV fluids. 2. Electrolytes abnormalities. 3. Chronic hyperkalemia . Patient will continue fludrocortisone, bicarbonate drip, is switched to p.o. tablet. 4. Hypertension, blood pressure controlled. 5. Hypocalcemia. Planning to start calcium and calcitriol. Patient will need to have workup to check vitamin D level. EB/MODL Voice ID: [id number] Report ID: [id number] DIMITRIOS
[2020-05-27] MEDS: NACHLORIDE 0.45% 1,000 ML IV SCH (02:23)
[2020-05-27 03:44] VITALS: O2SAT 98
[2020-05-27 05:04] LABS: Absolute Lymphocytes (CBC) 1.1 K/uL (0.7-4.9); Basophils % 1.1 % (0-1.3); Hematocrit 24.4 % (39.6-49.0); Lymphocytes % 25.7 % (15.3-44.8); MPV 9.4 fL (7.6-11.3); RBC Red Blood Cell Count 2.67 M/uL (4.33-5.43)
[2020-05-27 05:18] LABS: Albumin 2.9 g/dL (3.4-5.0); Bilirubin Total 0.3 mg/dL (0.2-1.0); Magnesium 1.5 mg/dL (1.8-2.4); Potassium 4.5 mmol/L (3.5-5.1)
[2020-05-27] MEDS ORDERED: Magnesium Sulfate 2gm IVPB 2 G/50 ML BAG IV ONE ×2 (05:53→06:22)
[2020-05-27] MEDS: atenoloL 50 MG TAB PO SCH (06:00)
[2020-05-27] MEDS: LEVOTHYROXINE SOD 0.125 MG TAB PO SCH (06:09)
[2020-05-27 08:51] VITALS: BP 115/44; TEMP 97.8
[2020-05-27] MEDS: ASPIRIN EC 81 MG TAB PO SCH (09:00)
[2020-05-27] MEDS: SODIUM BICARB 325 MG TAB PO SCH (09:00)
[2020-05-27] MEDS: FLUDROCORTISONE 0.1 MG TAB PO SCH (09:00)
[2020-05-27] MEDS: ENOXAPARIN 40 MG/0.4 ML SQ SCH (09:00)
[2020-05-27] MEDS: CALCITROL 0.25 MCG CAP PO SCH (09:00)
[2020-05-27] MEDS: CALCIUM CARBONATE 500 MG TAB PO SCH (09:00)
[2020-05-27] MEDS ORDERED: ASPIRIN 325 MG TAB ONE (09:11)
[2020-05-27] MEDS ORDERED: ASPIRIN EC 81 MG TAB PO ONE (09:59)
[2020-05-27] MEDS ORDERED: ENOXAPARIN 40 MG/0.4 ML SQ ONE (10:01)
--- NOTE | 2020-05-27 11:21 | P.DS ---
Admission Date: 05/24/20 Discharge Date: 05/27/20 Primary Care Provider: Dr. Joseph Disposition: ROUTINE DISCHARGE Discharge Condition: FAIR Reason for Admission: Hypoglycemia - Problems (1) Hypoglycemia Status: Acute (2) DM type 2 (diabetes mellitus, type 2) Status: Acute (3) Chronic kidney disease, stage 3 Status: Acute (4) Hyperkalemia Status: Acute (5) Metabolic acidosis Status: Acute Brief History of Present Illness: 59-year-old gentleman with a history of chronic kidney disease, diabetes mellitus type 2, chronic hyperkalemia was brought to the emergency department due to altered mental status. Patient was found on the floor unresponsive by his . His blood sugar was noted to be low and was therefore brought to the emergency department. Patient was given multiple D50 and started on d 10 infusion. He had intermittent hypoglycemia despite being on IV D10. His mental status was better in the emergency department. Patient also recently tested positive for COVID 19. He was admitted for further management. Hospital Course: Patient admitted to the floor and given IV dextrose for hypoglycemia. He was seen in consultation by nephrology. Patient was started sodium bicarb replacement, and given Kayexalate for hyperkalemia. He also received treatment for hyperkalemia with calcium gluconate and IV insulin. He continued to experience intermittent episodes of hypoglycemia. Hypoglycemia is likely secondary to Glyburide in the contest of CKD. His blood sugar readings eventually stabilized. His mental status improved to baseline. His serum creatinine level was at baseline throughout the hospital stay. Patient is considered stable for discharge. His blood sugar has been ranging between 100- 150. Glyburide has been discontinued. Patient will follow with his PCP for further management of his blood glucose. He is prescribed Veltassa for chronic hyperkalemia. His sodium bicarb supplementation has been increased to 1300mg tid. Vital Signs/Physical Exam: Temp Pulse Resp BP Pulse Ox 97.8 F 93 H 16 115/44 L 100 05/27/20 08:00 05/27/20 08:00 05/27/20 08:00 05/27/20 08:00 05/27/20 08:00 General: Alert, In no apparent distress, Oriented x3 Neck: Supple, JVD not distended Respiratory: Clear to auscultation bilaterally, Normal air movement Cardiovascular: No edema, Regular rate/rhythm, Normal S1 S2 Gastrointestinal: Normal bowel sounds, Soft and benign, Non-distended, No tenderness Musculoskeletal: No swelling Integumentary: No rashes Neurological: Normal speech, Normal strength at 5/5 x4 extr, Cranial nerves 3-12 intact Laboratory Data at Discharge: WBC 4.3 K/uL (4.3-10.9) D 05/27/20 04:17 Hgb 8.0 g/dL (13.6-17.9) L 05/27/20 04:17 Hct 24.4 % (39.6-49.0) L 05/27/20 04:17 Plt Count 115 K/uL (152-406) L 05/27/20 04:17 PT 14.9 SECONDS (9.5-12.5) H 05/26/20 05:05 INR 1.27 05/26/20 05:05 Sodium 145 mmol/L (136-145) 05/27/20 04:17 Potassium 4.5 mmol/L (3.5-5.1) 05/27/20 04:17 BUN 41 mg/dL (7-18) H 05/27/20 04:17 Creatinine 1.73 mg/dL (0.55-1.3) H 05/27/20 04:17 Glucose 126 mg/dL (74-106) H 05/27/20 04:17 Phosphorus 4.0 mg/dL (2.5-4.9) 05/26/20 05:05 Magnesium 1.5 mg/dL (1.8-2.4) L 05/27/20 04:17 Total Bilirubin 0.3 mg/dL (0.2-1.0) 05/27/20 04:17 AST 22 U/L (15-37) 05/27/20 04:17 ALT 20 U/L (12-78) 05/27/20 04:17 Alkaline Phosphatase 101 U/L (45-117) 05/27/20 04:17 Lipase 119 U/L (73-393) 05/24/20 05:38 Home Medications: Aspirin Chewable [Aspirin Chewable*] 81 mg PO DAILY 05/25/20 Atenolol [Tenormin] 25 mg PO DAILY 05/25/20 Calcitrol [Rocaltrol*] 0.25 mcg PO DAILY 05/25/20 Ergocalciferol (Vitamin D2) [Vitamin D2] 50,000 unit PO DAILY 05/25/20 Levothyroxine Sodium [Levothyroxine] 1 tab PO BID 05/25/20 Levothyroxine Sodium [Synthroid] 200 mcg PO DAILY 05/25/20 Liothyronine [Cytomel*] 25 mcg PO DAILY 05/25/20 Montelukast Sodium [Singulair] 10 mg PO DAILY 05/25/20 Tamsulosin [Flomax*] 0.4 mg PO DAILY 05/25/20 Tramadol HCl [Ultram] 50 mg PO Q6HR PRN 05/25/20 gemfibroziL [Gemfibrozil] 600 mg PO BID 05/25/20 Calcium Carbonate [Oscal*] 1,000 mg PO TID #180 tab 05/27/20 Fludrocortisone [Florinef *] 0.1 mg PO DAILY #30 tab 05/27/20 Patiromer Calcium Sorbitex [Veltassa] 8.4 gm PO DAILY #30 powd.pack 05/27/20 Sodium Bicarbonate 1,300 mg PO TID #180 tablet 05/27/20 New Medications: Fludrocortisone [Florinef *] 0.1 mg PO DAILY #30 tab Calcium Carbonate [Oscal*] 1,000 mg PO TID #180 tab Sodium Bicarbonate 1,300 mg PO TID #180 tablet Patiromer Calcium Sorbitex [Veltassa] 8.4 gm PO DAILY #30 powd.pack Diet: Renal Followup: NONE,NONE [Primary Care Provider] - Eloise Gomez MD [ACTIVE - CAN ADMIT] - 1 Week Time spent managing pt's care (in minutes): 42
--- NOTE | 2020-05-27 12:57 | P.PN ---
Subjective Date of Service: 05/27/20 Primary Care Provider: Dr. Joseph Chief Complaint: Hypoglycemia Subjective 59-year-old male with history of CKD baseline Cr 1.6-1.8 , chronic hyperkalemia, Acidosis hypertension, diabetes mellitus type 2, and recently Diagnosed with COVID 19 Presents the emergency department for symptomatic hypoglycemia. Pt was recently admitted to [facility] for abdominal pain, he have cholecytitis, but surgery deferred as he was COVID 19 positive, pt start having abdominal pain 2 days ago , with poor oral intake Today Asymptomatic Cr at baseline , bicarb and potassium normalized Cleared for discharge from nephrology point of view follow with nephrology clinic in 2-3 wks Review of Systems: Head and Neck: No red eye. No ear pain. GI: denied abdominal pain , nausea, : No polyuria, no dysuria, no hematuria. Independent Distributor: Not applicable. Respiratory: No shortness of breath. Cardiovascular: No chest pain. Endocrine: No polydipsia. Skin: No rash. Neuro: Has neuropathy. Musculoskeletal: No back pain . Physical exam general: AAOX3, NAD, obese Neck; Supple, No elevated JVD hear: RRR, normal S1,2 no murmur or rub Chest: CTAB, no rlaes or wheezes Abdomen: Soft , Nt Extremities no edema, A/p LUIS CKD IIIb resolved possibly due to dehydration from poor inatake and nausea due to DM and HTN glomeruosclerosis cr baseline 1.6-1.8 renal dose shekhar AVoid NSAID and contrast will order renal US I had a long discusson with Pt that he might need dialysis aof rpersisitet hyperkalmeia and acidosis , he is refusing Chronic hyperkalemia due to CKD and RTA IV cont kayexalate, COnt sodiums bicarb metabolic acidosis due to RTA IV sodium bicarb Symptomatic hypoglycemia resolvd now hypocalcemia cont calcium and calcitriol HTN controlled total time spent 55min Physical Examination - Vital Signs Temperature: 97.8 F Blood Pressure: 115/44 Pulse: 93 Respirations: 16 Pulse Ox (%): 100
[2020-05-31 11:59] LABS: Vitamin D 1,25-Dihydroxy Total <8 pg/mL (18-72); Vitamin D,1,25-OH2, D2 <8 pg/mL
== END 2020-05-27 12:30 | disposition home or self-care (01) | DRG 638 ==
LOC: ER 23:21 → ERHOLD 05-24 02:51
PROVIDERS: ADMIT Hospitalist; ATTEND Internal Medicine
DX: E11.649 Type 2 diabetes mellitus with hypoglycemia without coma (principal); E87.2 Acidosis; Z68.43 Body mass index [BMI] 50.0-59.9, adult; E66.9 Obesity, unspecified; N17.9 Acute kidney failure, unspecified; I12.9 Hypertensive chronic kidney disease with stage 1 through stage 4 chronic kidney disease, or unspecified chronic kidney disease; N18.32 Chronic kidney disease, stage 3b; E11.22 Type 2 diabetes mellitus with diabetic chronic kidney disease; E87.5 Hyperkalemia; E83.42 Hypomagnesemia; E83.51 Hypocalcemia; I25.2 Old myocardial infarction; T38.3X5A Adverse effect of insulin and oral hypoglycemic [antidiabetic] drugs, initial encounter; Z91.14 Patient's other noncompliance with medication regimen; Z88.5 Allergy status to narcotic agent; Z88.0 Allergy status to penicillin; Z88.1 Allergy status to other antibiotic agents; Z88.7 Allergy status to serum and vaccine; Z88.8 Allergy status to other drugs, medicaments and biological substances; Z79.890 Hormone replacement therapy; Z79.84 Long term (current) use of oral hypoglycemic drugs; Z79.899 Other long term (current) drug therapy; Z90.49 Acquired absence of other specified parts of digestive tract; Z79.82 Long term (current) use of aspirin; Z20.828 Contact with and (suspected) exposure to other viral communicable diseases
CPT/HCPCS: 36415; 70450; 71045; 71250; 72125; 76705; 76770; 80048; 80053; 80076; 81003; 82306; 82533; 82652; 82947; 83036; 83525; 83605; 83690; 83735; 83880; 84100; 84145; 84439; 84443; 84484; 84681; 85025; 85610; 87040; 93005; 99285; J0610; J1650; J1720; J1940; J2354; J3475; J7799; U0003